=== PATIENT | male | born 1930 | race Caucasian/White ===

== ENCOUNTER → 2016-11-13 | Outpatient (CLI) | payer MEDICARE, OTHER ==
[2016-10-24 16:05] VITALS: BP 120/64
[~2016-11-13] MED LIST: ACET325T9 PO; ALBU2.5V5 NEB; CALC1CAP7 PO; CARV3.122 PO; CITA20TA5 PO; FENT1PAT19 TD; FINA5TAB4 PO; FURO40TA4 PO; GADOBUTROL 10 MMOL/10 ML VIAL IV ONE; HYDR-2672 PO; HYDR500C3 PO; LEVO100T5 PO; MULT-208 PO; MULT-245 PO; OXYC1TAB9 PO; PANT40TA5 PO; SENN8.6T99 PO; SULF1TAB24 PO; TRAM50TA PO
--- NOTE | 2016-11-13 14:26 | RAD ---
PROCEDURE MR of the bilateral hips HISTORY Bilateral weakness and pain. TECHNIQUE Large field of view used to include both hips. COMPARISON None FINDINGS There is extensive artifact at the right hip due to right hip prosthesis. Moderate to severe subcutaneous edema and swelling lateral to the left hip and proximal thigh. Mild intramuscular edema involving the left adductor, pectineus, gluteus and proximal vastus muscles. Partially visualized fluid collection within or just anterior to the distal gluteus fauzia muscle. As visualized this measures 5 centimeters diameter. The major tendon attachments within the field of view appear to be grossly intact without evidence of acute rupture. Hamstring tendinosis. Milder more generalized soft tissue edema around the visualized musculoskeletal pelvis. No significant joint effusion. No evidence of an acute fracture. No aggressive bone destruction. No left femoral head osteonecrosis. Mild marrow heterogeneity on T1 weighted images, likely due to red marrow reconversion due to patient age. There is distension of the urinary bladder. IMPRESSION 1. Generalized soft tissue edema and swelling around the pelvis, particularly around the left hip in the lateral subcutaneous tissues. Findings could represent posttraumatic muscle strains or nonspecific inflammatory or infectious etiology. 2. Partially visualized fluid collection identified just anterior to or possibly within the lower aspect of the left gluteus fauzia muscle. Etiology nonspecific, again could be posttraumatic versus inflammatory/infectious, depending on clinical history. Electronically signed by: Eugenio Norwood MD (Nov 13, 2016 14:25:36)
--- NOTE | 2016-11-13 18:18 | RAD ---
PROCEDURE MRI of the lumbar spine without and with contrast 11/13/2016 HISTORY Low back pain with bilateral leg weakness. History of previous lumbar spine surgery. TECHNIQUE Unenhanced T1 weighted, T2 weighted inversion recovery sagittal and T1 weighted and T2 weighted axial images of the lumbar spine were obtained. After the intravenous administration of 10 cc of Gadavist, enhanced T1 weighted sagittal and axial images of the lumbar spine were obtained. FINDINGS Comparison study is dated 10/22/2016. Images from the study are degraded by patient motion. [id number] S-shaped curvature of the thoracolumbar spine is seen. Degenerative signal changes are seen involving all of the discs of the lumbar spine. Degenerative signal changes are seen within the marrow surrounding these discs. The marrow signal of the visualized bony structures remains very heterogeneous. Old compression deformity of the L1 vertebral body is again noted. The conus medullaris is normal in position and signal characteristics. The thecal sac is distorted throughout the lumbar spine. 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 Mild to moderate left hydronephrosis and left hydroureter is again seen. Increased signal intensity is seen on the T2 weighted inversion recovery images involving the L1-2, L2-3, L3-4 and L5-S1 discs. Marked loss of height of these discs is seen. Decreased signal intensity seen on the T1 weighted images within the marrow surrounding these discs which is felt to most likely reflect areas of degenerative signal change; however, discitis/osteomyelitis could have similar appearance and is not excluded. What appear to be loculated subdural fluid collections are seen extending throughout the lumbar spine predominantly anterior to the thecal sac significantly deforming the thecal sac. These extend from the L2 through L5-S1 levels. They are very difficult to evaluate due to motion on these images. These appear increased somewhat at the L2 level and at the S1 level. The etiology of these fluid collections and their sterility remains unknown. The patient appears to be status post laminectomy at L3-4. The changes of degenerative disc disease are seen throughout the lumbar spine. These consist mild to moderate generalized disc bulges and degenerative changes involving the facet joints. These findings result in mild to moderate central spinal canal stenosis at L1-2 with mild to moderate right neural foraminal stenosis. Severe central spinal canal stenosis is seen at L2-3 with mild bilateral neural foraminal stenosis, moderate left greater than right neural foraminal stenosis is seen at L4-5. Moderate left greater than right neural foraminal stenosis is seen at L5-S1. IMPRESSION 1. Images from the study are degraded by patient motion. 2. There again appears to be loculated subdural fluid collections extending throughout the lumbar spine predominantly anteriorly significantly deforming the thecal sac extending from the L2 through L5-S1 levels. These appear increased somewhat at the L2 and S1 levels. The etiology of these fluid collections and there sterility remains unknown. 3. The patient is status post laminectomy at L3-4. 4. The changes of degenerative disc disease are seen throughout the lumbar spine contributing to mild to moderate central spinal canal stenosis at L1-2 and severe central spinal canal stenosis at L2-3. Multilevel neural foraminal stenosis of varying severity is seen as outlined above. Electronically signed by: Charly Navarro MD (Nov 13, 2016 18:17:07)
== END | disposition home or self-care (01) ==
LOC: MRI 12:26
PROVIDERS: ATTEND Family Medicine
DX: M54.9 Dorsalgia, unspecified (principal); M79.605 Pain in left leg; M79.604 Pain in right leg; R53.1 Weakness; Z82.49 Family history of ischemic heart disease and other diseases of the circulatory system; I10 Essential (primary) hypertension
CPT/HCPCS: 72158; 73721

== ENCOUNTER 2016-11-14 20:16 | Inpatient (IN) | payer MEDICARE, OTHER ==
[~2016-11-14] VITALS: Ht 170.2 cm; Wt 87.7 kg
[~2016-11-14 20:16] MED LIST changes: -ACET325T9 PO; -ALBU2.5V5 NEB; -CITA20TA5 PO; -FENT1PAT19 TD; -FURO40TA4 PO; -GADOBUTROL 10 MMOL/10 ML VIAL IV ONE; -MULT-208 PO; -OXYC1TAB9 PO; -SENN8.6T99 PO; -TRAM50TA PO
--- NOTE | 2016-11-14 22:14 | PHYS DOC ---
Past Medical History Past Medical History: CAD, CHF, Heart Disease, Hypertension, Hypothyroid, Other Additional Past Medical Histor: PROLAPSED VALVE, BLOOD DISORDER, Lumbar spinal stenosis and DDD Past Surgical History: Coronary Bypass Surgery, Hip Replacement, Knee Replacement, Other Additional Past Surgical Histo: R)hipR)ankleBilat cataractL)rotator,Laminectomy ,Colon resect.,Bilat.knees, Alcohol Use: None Drug Use: None Adult General Chief Complaint Chief Complaint: BACK PAIN - NO INJURY HPI HPI Patient is a 86 year old male was history of low back pain and laminectomy who presents by EMS from nursing facility for evaluation of worsening low back pain , worsening bilateral lower extremity weakness, and urinary incontinence. Patient states this has occurred over the past 2 weeks or so, gradually. He denies injury. He denies fever or chills or abdominal pain, nausea or vomiting, dysuria, hematuria, diarrhea. He had laboratory evaluation remarkable for elevated ESR at work, and he has recent MRI of L-spine and pelvis in a lethargic significant for fluid accumulations; so he was sent here for admission for neurosurgical evaluation. Review of Systems Review of Systems Constitutional: Denies fever or chills [] Eyes: Denies change in visual acuity, redness, or eye pain [] HENT: Denies nasal congestion or sore throat [] Respiratory: Denies cough or shortness of breath [] Cardiovascular: No additional information not addressed in HPI [] GI: Denies abdominal pain, nausea, vomiting, bloody stools or diarrhea [] : Denies dysuria or hematuria [] Musculoskeletal: Denies joint pain [] Integument: Denies rash or skin lesions [] Neurologic: Denies headache, focal weakness or sensory changes [] Endocrine: Denies polyuria or polydipsia [] Current Medications Current Medications Current Medications Medications (Trade) Dose Ordered Sig/Sabino Start Time Stop Time Status Last Admin Dose Admin Acetaminophen (Tylenol) 650 mg PRN Q4HRS PRN 11/14/16 22:15 11/15/16 22:14 Fentanyl Citrate (Fentanyl 2ml Vial) 50 mcg PRN Q2HR PRN 11/14/16 22:15 11/15/16 22:14 11/14/16 22:46 50 MCG Ondansetron HCl (Zofran) 4 mg PRN Q8HRS PRN 11/14/16 22:15 11/15/16 22:14 11/14/16 22:44 4 MG Allergies Allergies Allergies Coded Allergies Type Severity Reaction Last Updated Verified I S O L A T I O N *CONTACT* Allergy Unknown 11/11/16 Yes No Known Medication Allergies Allergy Unknown 11/11/16 Yes Physical Exam Physical Exam Constitutional: Well developed, well nourished, no acute distress, non-toxic appearance. [] HENT: Normocephalic, atraumatic, bilateral external ears normal, oropharynx moist, nose normal. [] Eyes: PERRLA, EOMI. [] Neck: Normal range of motion, supple. [] Cardiovascular:Heart rate regular rhythm [] Lungs & Thorax: Bilateral breath sounds clear to auscultation [] Abdomen: Bowel sounds normal, soft, no tenderness. [] Skin: Warm, dry, no erythema, no rash. [] Back: Has lumbar spinal and paraspinal tenderness without visual or palpable abnormality, no CVA tenderness. [] Extremities: No tenderness, ROM intact, bilateral 3+ lower extremity edema. [] Neurologic: Alert and oriented X 3, normal sensory function, no focal deficits noted. Able to flex and extend now at the ankle and toes, but maintains minimal range of motion at knees and hips due to weakness. Cannot raise legs off the bed [] Psychologic: Affect normal, judgement normal, mood normal. [] Current Patient Data Vital Signs Vital Signs Date Time Temp Pulse Resp B/P Pulse Ox O2 Delivery O2 Flow Rate FiO2 11/14/16 21:32 97.7 81 20 121/59 95 Room Air 97.7 Course & Med Decision Making Course & Med Decision Making Pertinent Labs and Imaging studies reviewed. (See chart for details) Reviewed recent outpatient lab that is remarkable for elevation ESR. He also had outpatient MR of his L-spine and pelvis that is remarkable for fluid in the lumbar spine area as well as soft tissues of the pelvis. Concern for soft tissue swelling likely related to dependent edema as he has markedly bilateral lower extremity edema. Given his progression in muscular skeletal dysfunction as well as recent urinary incontinence, Dr. Moreno would like to admit him to have neurosurgical evaluation. Neurosurgery consult placed. Beverley Disclaimer Beverley Disclaimer This electronic medical record was generated, in whole or in part, using a voice recognition dictation system. Departure Departure Impression: Primary Impression: Lumbar back pain Disposition: ADMITTED INPATIENT Condition: STABLE Referrals: Savana MORENO MD (PCP) Problem Qualifiers Primary Impression: Lumbar back pain Chronicity: acute Back pain laterality: midline Sciatica presence: without sciatica Qualified Code: M54.5 - Low back pain Aj KEATING MD Nov 14, 2016 22:14
[2016-11-14] MEDS ORDERED: ACETAMINOPHEN 325 MG TABLET. PO PRN (22:15)
[2016-11-14] MEDS ORDERED: FENTANYL PF 100 MCG/2 ML VIAL. IV PRN (22:15)
[2016-11-14] MEDS ORDERED: ONDANSETRON PF 4 MG/2 ML VIAL. IV PRN (22:15)
[2016-11-14 23:10] VITALS: BP 117/62
[2016-11-14 23:13] LABS: CALCIUM 8.5 mg/dL (8.5-10.1); CREATININE 0.9 mg/dL (0.7-1.3); GFR 79.6; POTASSIUM 4.4 mmol/L (3.5-5.1)
--- NOTE | 2016-11-15 00:12 | ACF ---
Admission Forms Criteria BACK PAIN Clinical Indications for Admission to Inpatient Care (Place 'X' for any and all applicable criteria): Admission is indicated for ANY ONE of the following (1)(2)(3)(4)(5)(6): [ X]I. Inpatient admission required rather than observation care (Also use Back Pain: Observation Care as appropriate) because of ANY ONE of the following [ X]a) Severe pain requiring acute inpatient management [ ]b) Immediate inpatient surgery [ ]c) Other condition, treatment or monitoring requiring inpatient admission [ ]II. Spine fracture with significant damage or threat of damage to vertebral column or spinal cord [ ]III. Progressive or severe neurologic deficit [ ]IV. Suspected spinal infection (e.g., epidural abscess, vertebral osteomyelitis)(10) [ ]V. Suspected cause requires inpatient treatment (eg, aortic dissection) [ ]. Cauda equina syndrome as indicated by ANY ONE of the following (9): [ ]a) Bowel dysfunction [ ]b) Bladder dysfunction [ ]c) Saddle anesthesia [ ]d) Neurologic abnormality suggesting cauda equina impingement Extended stay beyond goal length of stay may be needed for (3)(25): [ ]a) Spinal cord compression from stenosis, disk, or tumor (8)(9) [ ]b) Traumatic or pathologic vertebral fracture (33) [ ]c) Vertebral infection(10) [ ]d) Severe pain that is difficult to control [ ]e) Older patients(65 years or older) The original [facility] content created by [employer] has been revised. The portions of the content which have been revised are identified through the use of italic text or in bold, and [facility] has neither reviewed nor approved the modified material. All other unmodified content is copyright [facility]. Please see references footnoted in the original [facility] edition 2016 Admission Criteria Met?: Yes POP MATHEWS Nov 15, 2016 00:12
[2016-11-15] MEDS ORDERED: FURO40TA4 PO (00:57)
[2016-11-15] MEDS ORDERED: MULT-208 PO (00:58)
[2016-11-15] MEDS ORDERED: CITA20TA5 PO (01:01)
[2016-11-15] MEDS ORDERED: FENT1PAT19 TD (01:01)
[2016-11-15] MEDS ORDERED: ACET325T9 PO (01:03)
[2016-11-15] MEDS ORDERED: ALBU2.5V5 NEB (01:04)
[2016-11-15] MEDS ORDERED: OXYC1TAB9 PO (01:05)
[2016-11-15] MEDS ORDERED: SENN8.6T99 PO (01:06)
[2016-11-15] MEDS ORDERED: TRAM50TA PO (01:07)
[2016-11-15 03:20] VITALS: BP 111/53
[2016-11-15 05:17] LABS: BASO % 0 % (0-3); EOS % 1 % (0-3); HEMOGLOBIN 7.4 g/dL (13.0-17.5); LYMPH # 0.6 x10^3/uL (1.0-4.8); LYMPH % 11 % (24-48); MEAN CORPUSCULAR HEMOGLOBIN 41 pg (25-35); MEAN CORPUSCULAR HGB CONC 32 g/dL (31-37); MEAN CORPUSCULAR VOLUME 126 fL (79-100); MONO % 11 % (0-9); NEUT % 77 % (31-73); PLATELET COUNT 502 x10^3/uL (140-400); RED BLOOD COUNT 1.83 x10^6/uL (4.30-5.70); RED CELL DISTRIBUTION WIDTH 25.2 % (11.5-14.5); WHITE BLOOD COUNT 5.5 x10^3/uL (4.0-11.0)
[2016-11-15 06:04] LABS: CALCIUM 8.1 mg/dL (8.5-10.1); GFR 70.5; POTASSIUM 3.8 mmol/L (3.5-5.1)
[2016-11-15 07:00] VITALS: BP 108/59
[2016-11-15] MEDS ORDERED: FENTANYL 75MCG/HR PATCH. TD SCH (07:00)
[2016-11-15] MEDS ORDERED: ACETAMINOPHEN 325 MG TABLET. PO PRN (07:00)
[2016-11-15] MEDS ORDERED: ALBUTEROL SULFATE 2.5 MG/3 ML NEBU. NEB PRN (07:00)
[2016-11-15] MEDS ORDERED: SMZ/TMP 800/160MG TABLET. PO SCH (09:00)
--- NOTE | 2016-11-15 10:45 | PDOC ---
SUBJECTIVE Subjective Pt seen/examined. Full consult to follow. 86M with increased low back pain with functional difficulty with lower extremities over last couple weeks. Pt oriented but somewhat difficult historian. Reports stabbing low back pain and pain localized to the right hip that worsens with movement. Reports unable to get to bathroom from these issues with resultant incontinence. He reports that he senses the need to micturate and micturation. He denies paresthesias in the lower extremities or the perineal region. He denies pain in the legs other than right hip pain. Of note, he has a history of prior lumbar decompression many years ago by another surgeon. On exam, he provides full resistance in major muscle groups but has limitation in range of motion with right hip flexion. Reports intact sensation to light touch. DTR hyporeflexive. Significant pitting edema in lower extremities. Lumbar MRI from 11/13/16 with degenerative changes and mild increased loculated fluid prominence anterior subdural region compared to 2015 imaging. 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 Stenosis again noted L2-3. ESR noted to be >100. Concern for inflammatory process. ID consult. Acquire MR imaging of cervical and thoracic spine to assess for other such findings in the spinal axis. Lumbar CT myelogram to further assess fluid collections in lumbar region with relation to intrathecal space. Lumbar puncture to further evaluate infectious/inflammatory etiologies. Follow. OBJECTIVE Vital Signs Vital Signs Date Time Temp Pulse Resp B/P Pulse Ox O2 Delivery O2 Flow Rate FiO2 11/15/16 07:00 97.5 76 20 108/59 95 Room Air 97.5 11/15/16 03:20 97.6 77 16 111/53 91 Room Air 97.6 11/14/16 23:20 16 94 Room Air 11/14/16 23:10 97.7 75 16 117/62 94 Room Air 97.7 11/14/16 22:30 73 16 130/58 95 Room Air 11/14/16 21:32 97.7 81 20 121/59 95 Room Air 97.7 COMMENT Lab Laboratory Tests Test 11/14/16 22:43 11/15/16 04:19 Sodium Level 135mmol/L (136-145) 134mmol/L (136-145) Potassium Level 4.4mmol/L (3.5-5.1) 3.8mmol/L (3.5-5.1) Chloride Level 98mmol/L (98-107) 99mmol/L (98-107) Carbon Dioxide Level 28mmol/L (21-32) 31mmol/L (21-32) Anion Gap 9 (6-14) 4 (6-14) Blood Urea Nitrogen 20mg/dL (8-26) 17mg/dL (8-26) Creatinine 0.9mg/dL (0.7-1.3) 1.0mg/dL (0.7-1.3) Estimated GFR (Cockcroft-Gault) 79.6 70.5 Glucose Level 90mg/dL (70-99) 82mg/dL (70-99) Calcium Level 8.5mg/dL (8.5-10.1) 8.1mg/dL (8.5-10.1) White Blood Count 5.5x10^3/uL (4.0-11.0) Red Blood Count 1.83x10^6/uL (4.30-5.70) Hemoglobin 7.4g/dL (13.0-17.5) Hematocrit 23.0% (39.0-53.0) Mean Corpuscular Volume 126fL (79-100) Mean Corpuscular Hemoglobin 41pg (25-35) Mean Corpuscular Hemoglobin Concent 32g/dL (31-37) Red Cell Distribution Width 25.2% (11.5-14.5) Platelet Count 502x10^3/uL (140-400) Neutrophils (%) (Auto) 77% (31-73) Lymphocytes (%) (Auto) 11% (24-48) Monocytes (%) (Auto) 11% (0-9) Eosinophils (%) (Auto) 1% (0-3) Basophils (%) (Auto) 0% (0-3) Neutrophils # (Auto) 4.3x10^3uL (1.8-7.7) Lymphocytes # (Auto) 0.6x10^3/uL (1.0-4.8) Monocytes # (Auto) 0.6x10^3/uL (0.0-1.1) Eosinophils # (Auto) 0.0x10^3/uL (0.0-0.7) Basophils # (Auto) 0.0x10^3/uL (0.0-0.2) ARIANNA WILKERSON MD Nov 15, 2016 10:45
[2016-11-15 11:00] VITALS: BP 115/58
[2016-11-15] MEDS: SENNOSIDES 8.6 MG TABLET PO SCH ×2 (11:05→20:56)
[2016-11-15] MEDS: LEVOTHYROXINE 100 MCG TABLET PO SCH (11:05)
[2016-11-15] MEDS: MULTIVITAMIN with MINERAL TABLET. PO SCH (11:05)
[2016-11-15] MEDS: CITALOPRAM 20 MG TABLET. PO SCH (11:05)
[2016-11-15] MEDS: PANTOPRAZOLE 40 MG TABLET. PO SCH (11:06)
[2016-11-15] MEDS: FUROSEMIDE 40 MG TABLET PO SCH (11:06)
[2016-11-15] MEDS: CALCIUM CARB/VIT D3 500/200 TABLET PO SCH (11:06)
[2016-11-15] MEDS: FINASTERIDE 5 MG TABLET PO SCH (11:06)
[2016-11-15] MEDS: CARVEDILOL 3.125 MG TABLET PO SCH ×2 (11:06→16:15)
--- NOTE | 2016-11-15 12:37 | PDOC1 ---
History and Physical Date of Admission Date of Admission DATE: 11/14/16 TIME: 18:23 Identification/Chief Complaint Chief Complaint worsening back pain since lumbar lami, abnormal MRI of L-spine with concern for spinal fluid leak, elevated sed rate with concern for infection, suspected cauda equina syndrome with urinary incontinence Source Source: Chart review, Patient History of Present Illness History of Present Illness He has been at [facility] post op but not recovering as expected with back and hip pain and recent lab and imaging studies abnormal so admitted for further eval and treatment that cannot be provided in a SNU setting, he is on oral antibiotics for a recent bladder infection, he has been afebrile Past Medical History Cardiovascular: CAD Pulmonary: No pertinent hx GI: Constipation, GI bleed, Peptic Ulcer disease Heme/Onc: Anemia NOS, Other Hepatobiliary: No pertinent hx Psych: No pertinent hx Musculoskeletal: Osteoarthritis Rheumatologic: No pertinent hx Infectious disease: No pertinent hx Renal/: No pertinent hx Endocrine: No pertinent hx Past Surgical History Past Surgical History: Total knee replacement, Colon Resection, Other (lumbar lami) Family History Family History: Osteo Arthiritis Social History ALCOHOL: occassional Drugs: None Current Problem List Problem List Problems Medical Problems: (1) Lumbar back pain Status: Acute Problems: Current Medications Current Medications Current Medications Ondansetron HCl (Zofran) 4 mg PRN Q8HRS PRN IV NAUSEA/VOMITING Last administered on 11/14/16 22:44; Start 11/14/16 at 22:15; Stop 11/15/16 at 22:14 Fentanyl Citrate (Fentanyl 2ml Vial) 50 mcg PRN Q2HR PRN IV SEVERE PAIN Last administered on 11/14/16 22:46; Start 11/14/16 at 22:15; Stop 11/15/16 at 22:14 Acetaminophen (Tylenol) 650 mg PRN Q4HRS PRN PO FEVER; Start 11/14/16 at 22:15; Stop 11/15/16 at 22:14 Acetaminophen (Tylenol) 650 mg PRN Q6HRS PRN PO FEVER; Start 11/15/16 at 07:00 Albuterol Sulfate (Ventolin Neb Soln) 1 mg PRN Q6HRS PRN NEB SHORTNESS OF BREATH; Start 11/15/16 at 07:00 Carvedilol (Coreg) 3.125 mg BIDWMEALS PO Last administered on 11/15/16 11:06; Start 11/15/16 at 08:00 Citalopram Hydrobromide (Celexa) 20 mg DAILY PO Last administered on 11/15/16 11:05; Start 11/15/16 at 09:00 Fentanyl (Duragesic 75mcg/ Hr Patch) 1 patch Q72H TD Last administered on 11:04; Start 11/15/16 at 07:00 Finasteride (Proscar) 5 mg DAILY PO Last administered on 11/15/16 11:06; Start 11/15/16 at 09:00 Furosemide (Lasix) 40 mg DAILY PO Last administered on 11/15/16 11:06; Start at 09:00 Acetaminophen/ Hydrocodone Bitart (Lortab 10/325) 1 tab PRN Q6HRS PRN PO SEVERE PAIN; Start 11/15/16 at 07:00 Hydroxyurea (Hydrea) 1,000 mg SuMoTuWeThSa PO ; Start 11/15/16 at 21:00 Levothyroxine Sodium (Synthroid) 100 mcg DAILYAC PO Last administered on 11:05; Start 11/15/16 at 07:30 Pantoprazole Sodium (Protonix) 40 mg DAILYAC PO Last administered on 11/15/16 11:06; Start 11/15/16 at 07:30 Sennosides (Senna) 8.6 mg BID PO Last administered on 11/15/16 11:05; Start 11/15/16 at 09:00 Trimethoprim/ Sulfamethoxazole (Bactrim Ds) 1 tab BID PO Last administered on 11:30; Start 11/15/16 at 09:00 Calcium/Vitamin D (Oscal D 500mg/ 200uts) 1 tab DAILY PO Last administered on 11:06; Start 11/15/16 at 09:00 Multivitamins/ Calcium (Thera M Plus) 1 tab DAILY PO Last administered on 11:05; Start 11/15/16 at 09:00 Hydroxyurea (Hydrea) 1,500 mg QFRIDAY PO ; Start 11/21/16 at 21:00 Active Scripts Active Bactrim Ds Tablet (Sulfamethoxazole/Trimethoprim) 1 Each Tablet 1 Tab PO BID Reported Senokot (Sennosides) 8.6 Mg Tablet 8.6 Mg PO BID Albuterol Sulfate Neb Soln (Albuterol Sulfate) 2.5 Mg/3 Ml Vial.neb 1 Vial NEB Q6HRS PRN Tylenol (Acetaminophen) 325 Mg Tablet 2 Tab PO Q6HRS PRN FENTANYL 75mcg/hr (Fentanyl) 1 Each Patch.td72 1 Patch TD Q72H Citalopram Hbr (Citalopram Hydrobromide) 20 Mg Tablet 1 Tab PO DAILY Furosemide 40 Mg Tablet 1 Tab PO DAILY Calcium 600 + Vit D 400 Softgl (Calcium Carbonate/Vitamin D3) 1 Each Capsule 600 Each PO DAILY Multi Vitamin Daily (Multivitamin) 1 Each Tablet 1 Each PO Finasteride 5 Mg Tablet 5 Mg PO DAILY Hydrocodone-Apap 10-325 (Hydrocodone Bit/Acetaminophen) 1 Each Tablet 1 Tab PO PRN Q6HRS PRN Hydroxyurea 500 Mg Capsule 1,000 Mg PO HS Pantoprazole Sodium 40 Mg Tablet.dr 40 Mg PO DAILY Carvedilol 3.125 Mg Tablet 3.125 Mg PO BIDWMEALS Levothyroxine Sodium 100 Mcg Tablet 100 Mcg PO DAILYAC Allergies Allergies: Coded Allergies: I S O L A T I O N *CONTACT* (Verified Allergy, Unknown, 11/11/16) mrsa No Known Medication Allergies (Verified Allergy, Unknown, 11/11/16) ROS General: YES: Fatigue, Malaise PSYCHOLOGICAL ROS: No: Anxiety, Behavioral Disorder, Concentration difficultie , Decreased libido, Depression, Disorientation, Hallucinations, Hostility, Irritablity, Memory difficulties, Mood Swings, Obsessive thoughts, Physical abuse, Sexual abuse, Sleep disturbances, Suicidal ideation Eyes: Yes Uses glasses HEENT: No: Epistaxis, Heacaches, Hearing change, Nasal congestion, Nasal discharge, Oral lesions, Sinus pain, Sneezing, Snoring, Sore Throat, Tinnitus, Vertigo, Visual Changes, Vocal changes ALLERGY AND IMMUNOLOGY: No: Hives, Insect Bite Sensitivity, Itchy/Watery Eyes, Nasal Congestion, Post Nasal Drip, Seasonal Allergies Hematological and Lymphatic: No: Bleeding Problems, Blood Clots, Brusing, Night Sweats, Pallor, Swollen Lymph Nodes Respiratory: No: Cough, Hemoptysis, Orthopnea, Pleuritic Pain, SOB with excertion, Shortness of breath, Sputum Changes, Stridor, Tachypnea, Wheezing Cardiovascular: No Chest Pain, No Edema, No Lt Headedness, No Orthopnea, No Palpitations, No Paroxysmal Noc. Dyspnea Gastrointestinal: Yes Constipation Genitourinary: YES Incontinence Musculoskeletal: Yes Gait Disturbance, Yes Joint Pain, Yes Joint Stiffness, Yes Muscular Weakness Skin: Yes Dry Skin, Yes Eczema, Yes Rash Physical Exam General: Alert, Cooperative, mild distress HEENT: Atraumatic, Other (wearing glasses, several actinic skin lesions) Lungs: Clear to auscultation Heart: RRR Abdomen: Soft, No hepatosplenomegaly Male Genitals Exam: normal genitalia Extremities: Other (2-3+ LE edema bilaterally, pitting) Skin: Other (actinic lesions) Psych/Mental Status: Mental status NL Vitals Vitals Vital Signs Date Time Temp Pulse Resp B/P Pulse Ox O2 Delivery O2 Flow Rate FiO2 11/15/16 11:06 76 108/59 11/15/16 11:00 96.3 20 94 Room Air 96.3 Labs Labs Laboratory Tests Test 11/14/16 22:43 11/15/16 04:19 Sodium Level 135mmol/L (136-145) 134mmol/L (136-145) Potassium Level 4.4mmol/L (3.5-5.1) 3.8mmol/L (3.5-5.1) Chloride Level 98mmol/L (98-107) 99mmol/L (98-107) Carbon Dioxide Level 28mmol/L (21-32) 31mmol/L (21-32) Anion Gap 9 (6-14) 4 (6-14) Blood Urea Nitrogen 20mg/dL (8-26) 17mg/dL (8-26) Creatinine 0.9mg/dL (0.7-1.3) 1.0mg/dL (0.7-1.3) Estimated GFR (Cockcroft-Gault) 79.6 70.5 Glucose Level 90mg/dL (70-99) 82mg/dL (70-99) Calcium Level 8.5mg/dL (8.5-10.1) 8.1mg/dL (8.5-10.1) White Blood Count 5.5x10^3/uL (4.0-11.0) Red Blood Count 1.83x10^6/uL (4.30-5.70) Hemoglobin 7.4g/dL (13.0-17.5) Hematocrit 23.0% (39.0-53.0) Mean Corpuscular Volume 126fL (79-100) Mean Corpuscular Hemoglobin 41pg (25-35) Mean Corpuscular Hemoglobin Concent 32g/dL (31-37) Red Cell Distribution Width 25.2% (11.5-14.5) Platelet Count 502x10^3/uL (140-400) Neutrophils (%) (Auto) 77% (31-73) Lymphocytes (%) (Auto) 11% (24-48) Monocytes (%) (Auto) 11% (0-9) Eosinophils (%) (Auto) 1% (0-3) Basophils (%) (Auto) 0% (0-3) Neutrophils # (Auto) 4.3x10^3uL (1.8-7.7) Lymphocytes # (Auto) 0.6x10^3/uL (1.0-4.8) Monocytes # (Auto) 0.6x10^3/uL (0.0-1.1) Eosinophils # (Auto) 0.0x10^3/uL (0.0-0.7) Basophils # (Auto) 0.0x10^3/uL (0.0-0.2) C-Reactive Protein, Quantitative 69.6mg/L (0-3.3) Laboratory Tests Test 11/14/16 22:43 11/15/16 04:19 Sodium Level 135mmol/L (136-145) 134mmol/L (136-145) Potassium Level 4.4mmol/L (3.5-5.1) 3.8mmol/L (3.5-5.1) Chloride Level 98mmol/L (98-107) 99mmol/L (98-107) Carbon Dioxide Level 28mmol/L (21-32) 31mmol/L (21-32) Anion Gap 9 (6-14) 4 (6-14) Blood Urea Nitrogen 20mg/dL (8-26) 17mg/dL (8-26) Creatinine 0.9mg/dL (0.7-1.3) 1.0mg/dL (0.7-1.3) Estimated GFR (Cockcroft-Gault) 79.6 70.5 Glucose Level 90mg/dL (70-99) 82mg/dL (70-99) Calcium Level 8.5mg/dL (8.5-10.1) 8.1mg/dL (8.5-10.1) White Blood Count 5.5x10^3/uL (4.0-11.0) Red Blood Count 1.83x10^6/uL (4.30-5.70) Hemoglobin 7.4g/dL (13.0-17.5) Hematocrit 23.0% (39.0-53.0) Mean Corpuscular Volume 126fL (79-100) Mean Corpuscular Hemoglobin 41pg (25-35) Mean Corpuscular Hemoglobin Concent 32g/dL (31-37) Red Cell Distribution Width 25.2% (11.5-14.5) Platelet Count 502x10^3/uL (140-400) Neutrophils (%) (Auto) 77% (31-73) Lymphocytes (%) (Auto) 11% (24-48) Monocytes (%) (Auto) 11% (0-9) Eosinophils (%) (Auto) 1% (0-3) Basophils (%) (Auto) 0% (0-3) Neutrophils # (Auto) 4.3x10^3uL (1.8-7.7) Lymphocytes # (Auto) 0.6x10^3/uL (1.0-4.8) Monocytes # (Auto) 0.6x10^3/uL (0.0-1.1) Eosinophils # (Auto) 0.0x10^3/uL (0.0-0.7) Basophils # (Auto) 0.0x10^3/uL (0.0-0.2) C-Reactive Protein, Quantitative 69.6mg/L (0-3.3) VTE Prophylaxis Ordered VTE Prophylaxis Devices: Yes VTE Pharmacological Prophylaxi: Yes Assessment/Plan Assessment/Plan lumbar back pain, suspicious for cauda equina syndrome with gait weakness and urinary incontinence and elevated sed rate, abnormal fluid collection noted on recent MRI, he also has soft tissue edema around hip. Admitted for Neurosurgery and ID consults and further eval and treatment Savana MORENO MD Nov 15, 2016 12:37
--- NOTE | 2016-11-15 14:32 | PDOC ---
Infectious Disease Note Vital Sign Vital Signs Vital Signs Date Time Temp Pulse Resp B/P Pulse Ox O2 Delivery O2 Flow Rate FiO2 11/15/16 11:06 76 108/59 11/15/16 11:00 96.3 20 94 Room Air 96.3 Labs Lab Laboratory Tests Test 11/14/16 22:43 11/15/16 04:19 Sodium Level 135mmol/L (136-145) 134mmol/L (136-145) Potassium Level 4.4mmol/L (3.5-5.1) 3.8mmol/L (3.5-5.1) Chloride Level 98mmol/L (98-107) 99mmol/L (98-107) Carbon Dioxide Level 28mmol/L (21-32) 31mmol/L (21-32) Anion Gap 9 (6-14) 4 (6-14) Blood Urea Nitrogen 20mg/dL (8-26) 17mg/dL (8-26) Creatinine 0.9mg/dL (0.7-1.3) 1.0mg/dL (0.7-1.3) Estimated GFR (Cockcroft-Gault) 79.6 70.5 Glucose Level 90mg/dL (70-99) 82mg/dL (70-99) Calcium Level 8.5mg/dL (8.5-10.1) 8.1mg/dL (8.5-10.1) White Blood Count 5.5x10^3/uL (4.0-11.0) Red Blood Count 1.83x10^6/uL (4.30-5.70) Hemoglobin 7.4g/dL (13.0-17.5) Hematocrit 23.0% (39.0-53.0) Mean Corpuscular Volume 126fL (79-100) Mean Corpuscular Hemoglobin 41pg (25-35) Mean Corpuscular Hemoglobin Concent 32g/dL (31-37) Red Cell Distribution Width 25.2% (11.5-14.5) Platelet Count 502x10^3/uL (140-400) Neutrophils (%) (Auto) 77% (31-73) Lymphocytes (%) (Auto) 11% (24-48) Monocytes (%) (Auto) 11% (0-9) Eosinophils (%) (Auto) 1% (0-3) Basophils (%) (Auto) 0% (0-3) Neutrophils # (Auto) 4.3x10^3uL (1.8-7.7) Lymphocytes # (Auto) 0.6x10^3/uL (1.0-4.8) Monocytes # (Auto) 0.6x10^3/uL (0.0-1.1) Eosinophils # (Auto) 0.0x10^3/uL (0.0-0.7) Basophils # (Auto) 0.0x10^3/uL (0.0-0.2) C-Reactive Protein, Quantitative 69.6mg/L (0-3.3) Objective Assessment Loculated subdural fluid collections of lumbar Fluid collection left hip Anemia Recent fall MRSA in urine, 11/06 Spinal stenosis s/p laminectomy L3-4 CAD Plan Plan of Care d/c Bactrim Await neurosurgeon input May need IR to aspirate and culture Thank you [phone] Attending Co-Sign The patient was seen and interviewed as well as examined at the bedside. The chart was reviewed. The case was discussed. Agree with the plan of care. PRESTON NAVAS APRN Nov 15, 2016 14:32 ALFONSO PROCTOR MD Nov 15, 2016 14:40
[2016-11-15 15:00] VITALS: BP 113/52
[2016-11-15] MEDS: HYDROCODONE/APAP 10/325 TABLET. PO PRN (16:14)
[2016-11-15 16:15] LABS: ANISOCYTOSIS MOD; PLT ESTIMATE INCREASED (ADEQUATE); POIKILOCYTOSIS SLIGHT; POLYCHROMASIA PRESENT
[2016-11-15] MEDS: ENOXAPARIN 40 MG/0.4 ML DISP.SYRIN. SQ SCH (16:15)
[2016-11-15 16:16] LABS: OVALOCYTES FEW
[2016-11-15 19:13] LABS: INR 1.3 (0.8-1.1); PROTHROMBIN TIME PATIENT 15.8 SEC (11.7-14.0)
[2016-11-15 19:40] VITALS: BP 111/46
[2016-11-15] MEDS: HYDROXYUREA 500 MG CAPSULE PO SCH (21:00)
[2016-11-15 22:40] VITALS: BP 106/47
[2016-11-16] VITALS (8 sets, daily range): BP systolic 97–143; BP diastolic 39–70
--- NOTE | 2016-11-16 04:29 | CONS ---
DATE OF CONSULTATION: 11/15/2016 REQUESTING PHYSICIAN: Dr. Kuo. REASON FOR CONSULTATION: Elevated sed rate post lumbar laminectomy. HISTORY OF PRESENT ILLNESS: This patient is an 86-year-old male with history of lumbar stenosis status post laminectomy at L3-L4 and L4-5. He was hospitalized last month after a fall with a right rib fracture. At that time, an MRI revealed a subdural fluid collection extending L2, most notable L3-L4-5 with effacement of subarachnoid space. He was residing at [facility] when he developed a worsening back and hip pain associated with urinary incontinence and lower extremity weakness. A repeat MRI revealed a somewhat increase fluid collections at L2 and S1 levels. Etiologies of these fluid collections and their severity remain unknown. His white blood cell count is normal with an elevated CRP of 69.6. He denies fevers, chills, or sweats. He has not been able to walk for weeks. He recently was found to have MRSA in the urine and is currently taking Bactrim. PAST MEDICAL HISTORY: Lumbar stenosis status post laminectomy at L3-L4, coronary artery disease, myocardial infarction, congestive heart failure, hypertension, gastroesophageal reflux disease, degenerative disk disease, hypothyroidism, peptic ulcer disease, osteoarthritis. Enterococcus faecalis, penicillin sensitive UTI. PAST SURGICAL HISTORY: Laminectomy, total knee replacement, colon resection, right femur repair. Left rotator cuff repair, right ankle fusion, cataract surgery, cardiac catheterization, total joint replacement of both knees. SOCIAL HISTORY: [facility]. History of alcohol use. ALLERGIES: No known drug allergies. MEDICATIONS: Bactrim. Other medications are available and have been reviewed on JAN. REVIEW OF SYSTEMS: Denies headache, nasal/sinus congestion or sore throat. Denies difficulty swallowing. Denies chest pain or heart palpitations. Denies cough, shortness of air or wheezing. Denies nausea, vomiting and diarrhea. Denies rash. He is needing assistance with ADLs. PHYSICAL EXAMINATION: GENERAL: male, lying in bed in no apparent distress. VITAL SIGNS: Afebrile, temperature 96.3, blood pressure 108/59, heart rate 76, respiratory rate 20, pulse oximetry is 94% on room air. Weight is 193.5 pounds. HEENT: Pupils are equally round. Normal conjunctivae. Oral mucosa is pink and moist. NECK: Supple. LUNGS: Clear to auscultation. HEART: Normal S1 and S2. ABDOMEN: Nondistended, bowel sounds are present. Soft, nontender. EXTREMITIES: Bilateral lower extremity pitting edema. No cyanosis. SKIN: Without rash. Right heel pressure wound without signs of infection. NEUROLOGIC: Alert and orientated. He is hard of hearing. Poor historian. LABORATORY DATA: WBC 5.5, hemoglobin 7.4, platelet count 502,000. Sed rate 119. Sodium 134, potassium 3.8, creatinine 1.0, BUN 17, glucose 82. CRP 69.6. Lumbar spine MRI per HPI, lower extremity MRI reveals generalized soft tissue edema and swelling around the pelvis, particularly around the left hip and the lateral subcutaneous tissues; partially visualized fluid collection identified just anterior to or possibly within the lower aspect of the left gluteus fauzia muscle. IMPRESSION: 1. Loculated subdural fluid collections of lumbar. 2. Fluid collection, left hip. 3. Anemia. 4. Recent fall. 5. MRSA in urine found 11/06. 6. Spinal stenosis status post laminectomy. 7. Coronary artery disease. PLAN: I will discontinue the Bactrim. Await neurosurgery evaluation. May need aspiration by Interventional Radiology with culture. Thank you, Dr. Kuo, for asking us to participate in this patient's care. Should you have further questions or concerns, please call. ALFONSO PROCTOR MD DR: LUDWIG/kit JOB#: [id number] / [id number]
[2016-11-16 05:33] LABS: BASO # 0.1 x10^3/uL (0.0-0.2); BASO % 1 % (0-3); EOS % 0 % (0-3); HEMATOCRIT 24.5 % (39.0-53.0); HEMOGLOBIN 7.5 g/dL (13.0-17.5); LYMPH # 0.7 x10^3/uL (1.0-4.8); LYMPH % 13 % (24-48); MEAN CORPUSCULAR HEMOGLOBIN 41 pg (25-35); MEAN CORPUSCULAR HGB CONC 31 g/dL (31-37); MEAN CORPUSCULAR VOLUME 133 fL (79-100); MONO % 9 % (0-9); NEUT % 77 % (31-73); PLATELET COUNT 523 x10^3/uL (140-400); RED BLOOD COUNT 1.84 x10^6/uL (4.30-5.70); RED CELL DISTRIBUTION WIDTH 25.2 % (11.5-14.5); WHITE BLOOD COUNT 5.5 x10^3/uL (4.0-11.0)
[2016-11-16] MEDS: LEVOTHYROXINE 100 MCG TABLET PO SCH (07:30)
[2016-11-16] MEDS: PANTOPRAZOLE 40 MG TABLET. PO SCH (07:30)
[2016-11-16] MEDS: CARVEDILOL 3.125 MG TABLET PO SCH ×2 (08:00→17:00)
[2016-11-16] MEDS: CALCIUM CARB/VIT D3 500/200 TABLET PO SCH (09:00)
[2016-11-16] MEDS: SENNOSIDES 8.6 MG TABLET PO SCH ×2 (09:00→22:24)
[2016-11-16] MEDS: MULTIVITAMIN with MINERAL TABLET. PO SCH (09:00)
[2016-11-16] MEDS: FINASTERIDE 5 MG TABLET PO SCH (09:00)
[2016-11-16] MEDS: CITALOPRAM 20 MG TABLET. PO SCH (09:00)
[2016-11-16] MEDS: FUROSEMIDE 40 MG TABLET PO SCH (09:00)
--- NOTE | 2016-11-16 09:41 | PDOC ---
Infectious Disease Note Subjective Subjective Periods of confusion No fever Vital Sign Vital Signs Vital Signs Date Time Temp Pulse Resp B/P Pulse Ox O2 Delivery O2 Flow Rate FiO2 11/16/16 07:00 97.5 94 18 143/70 98 Room Air 97.5 11/16/16 03:11 2.0 Physical Exam PHYSICAL EXAM GENERAL: Propped up in bed, NAD LUNGS: Clear to auscultation. HEART: Normal S1 and S2. ABDOMEN: Nondistended, bowel sounds are present. Soft, nontender. EXTREMITIES: Bilateral lower extremity pitting edema. No cyanosis. SKIN: Without rash. Right heel pressure wound without signs of infection. NEUROLOGIC: Alert, confused, coop Labs Lab Laboratory Tests Test 11/15/16 18:30 11/16/16 05:00 Prothrombin Time 15.8SEC (11.7-14.0) Prothromb Time International Ratio 1.3 (0.8-1.1) Activated Partial Thromboplast Time 61SEC (24-38) White Blood Count 5.5x10^3/uL (4.0-11.0) Red Blood Count 1.84x10^6/uL (4.30-5.70) Hemoglobin 7.5g/dL (13.0-17.5) Hematocrit 24.5% (39.0-53.0) Mean Corpuscular Volume 133fL (79-100) Mean Corpuscular Hemoglobin 41pg (25-35) Mean Corpuscular Hemoglobin Concent 31g/dL (31-37) Red Cell Distribution Width 25.2% (11.5-14.5) Platelet Count 523x10^3/uL (140-400) Neutrophils (%) (Auto) 77% (31-73) Lymphocytes (%) (Auto) 13% (24-48) Monocytes (%) (Auto) 9% (0-9) Eosinophils (%) (Auto) 0% (0-3) Basophils (%) (Auto) 1% (0-3) Neutrophils # (Auto) 4.2x10^3uL (1.8-7.7) Lymphocytes # (Auto) 0.7x10^3/uL (1.0-4.8) Monocytes # (Auto) 0.5x10^3/uL (0.0-1.1) Eosinophils # (Auto) 0.0x10^3/uL (0.0-0.7) Basophils # (Auto) 0.1x10^3/uL (0.0-0.2) Objective Assessment Loculated subdural fluid collections of lumbar Fluid collection left hip Anemia Acute encephalopathy Recent fall MRSA in urine, 11/06 Spinal stenosis s/p laminectomy L3-4 CAD Plan Plan of Care Await LP & cultures BC pending Attending Co-Sign The patient was seen and interviewed as well as examined at the bedside. The chart was reviewed. The case was discussed. Agree with the plan of care. PRESTON NAVAS APRN Nov 16, 2016 09:41 ALFONSO PROCTOR MD Nov 16, 2016 12:22
[2016-11-16] MEDS: ALBUTEROL SULFATE 2.5 MG/3 ML NEBU. NEB SCH ×3 (12:00→18:21)
[2016-11-16] MEDS: IV DEXTROSE 5%-LACT RINGERS 1,000 ML IV SCH (13:49)
[2016-11-16] MEDS: ENOXAPARIN 40 MG/0.4 ML DISP.SYRIN. SQ SCH (13:51)
--- NOTE | 2016-11-16 14:15 | PDOC ---
SUBJECTIVE Subjective Denies acute changes to legs or back. Reports some soa. CXR and breathing tx pending right now. Confusion reported overnight. Some difficulty with swallow reported, as well. Sensorium appears stable compared to yesterday at this time. ROS: reports back pain better controlled, reports some right hip pain, denies paresthesias, denies chest pain, reports some soa - w/u presently underway per primary team, orders for swallow eval noted OBJECTIVE Vital Signs Vital Signs Date Time Temp Pulse Resp B/P Pulse Ox O2 Delivery O2 Flow Rate FiO2 11/16/16 11:00 97.7 97 18 129/70 98 Nasal Cannula 2.0 97.7 11/16/16 08:00 Room Air 11/16/16 07:00 97.5 94 18 143/70 98 Room Air 97.5 11/16/16 03:11 98.1 69 18 97/39 92 Nasal Cannula 2.0 98.1 11/15/16 22:40 97.9 76 18 106/47 94 Room Air 97.9 11/15/16 19:40 97.7 80 18 111/46 92 Room Air 97.7 11/15/16 16:15 80 11/15/16 15:00 97.9 78 20 113/52 93 Room Air 97.9 I & O Intake and Output 11/16/16 07:00 Intake Total 700 ml Balance 700 ml Intake Oral 700 ml # Voids 3 PHYSICAL EXAM Physical Exam AAOx3, baseline sensorium compared to yesterday at this time, speech fluent, NAD , GORDON with full resistance but limited ROM hips, sensation intact LT, TTP right hip, pitting edema BLE unchanged ASSESSMENT/PLAN Assessment/Plan 86M with back pain, functional difficulty BLE, evidence of inflammatory process with apparent anterior 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 -MRI of remainder of spinal axis pending, lumbar CT myelogram pending, CSF studies pending acquisition -ID following - welcome any recs regarding any additional CSF studies -pt to receive breathing tx and CXR for soa per primary team - O2sat noted to be 98% on 2L NC presently and does not appear to be in acute distress Problems: COMMENT Lab Laboratory Tests Test 11/15/16 18:30 11/16/16 05:00 Prothrombin Time 15.8SEC (11.7-14.0) Prothromb Time International Ratio 1.3 (0.8-1.1) Activated Partial Thromboplast Time 61SEC (24-38) White Blood Count 5.5x10^3/uL (4.0-11.0) Red Blood Count 1.84x10^6/uL (4.30-5.70) Hemoglobin 7.5g/dL (13.0-17.5) Hematocrit 24.5% (39.0-53.0) Mean Corpuscular Volume 133fL (79-100) Mean Corpuscular Hemoglobin 41pg (25-35) Mean Corpuscular Hemoglobin Concent 31g/dL (31-37) Red Cell Distribution Width 25.2% (11.5-14.5) Platelet Count 523x10^3/uL (140-400) Neutrophils (%) (Auto) 77% (31-73) Lymphocytes (%) (Auto) 13% (24-48) Monocytes (%) (Auto) 9% (0-9) Eosinophils (%) (Auto) 0% (0-3) Basophils (%) (Auto) 1% (0-3) Neutrophils # (Auto) 4.2x10^3uL (1.8-7.7) Lymphocytes # (Auto) 0.7x10^3/uL (1.0-4.8) Monocytes # (Auto) 0.5x10^3/uL (0.0-1.1) Eosinophils # (Auto) 0.0x10^3/uL (0.0-0.7) Basophils # (Auto) 0.1x10^3/uL (0.0-0.2) ARIANNA WILKERSON MD Nov 16, 2016 14:14
[2016-11-16 14:58] LABS: HCO3 ABG 27 mmol/L (21-28); PCO2 ABG 37 mmHg (35-46); PH ABG 7.47 (7.35-7.45); PO2 ABG 89 mmHg (65-108); SAT O2 ABG 96 % (92-99)
[2016-11-16 15:00] LABS: FIO2 ABG 28%
--- NOTE | 2016-11-16 15:03 | RAD ---
AP portable chest. History: Dysphasia, dyspnea AP view was taken of the chest. There is mild elevation of the left diaphragm. There is linear atelectasis in the left lung base. There are no other infiltrates. Heart is within normal limits in size. There is no effusion. Impression: 1. Elevated left diaphragm with linear atelectasis left base.
--- NOTE | 2016-11-16 18:09 | PDOC ---
PROGRESS NOTES Subjective Subjective He has had the onset of confusion today and is not oriented to place. He feels SOA but has not been hypoxic, he has had trouble swallowing and nursing has not given him po meds as a result, his CXR is not showing any aspiration. No evidence of cauda equina syndrome but imaging studies pending. No clear indication of infection as cultures remain negative and being followed by ID. LP pending. 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 Sapp following, ID following, LP ordered, sed rate and CRP elevated but could be on the basis of rheumatologic disease (2) change in mental status, encephalopathy vs CVA vs microvascular disease (3) Left hip pain with abnormal fluid around hip and gluteal muscles (4) anemia, chonic, will transfuse in light of his change in mental condition (5) severe DJD- with pain, will remove fentanyl patch due to change in mental status (6) new oset of dysphagia, no evidence of aspiration, NPO for now, swallowing eval, may need GI consult, may need neurology consult (7) recent MRSA UTI - finished Bactrim, positive MRSA nasal swab Status: Acute Comment Review of Relevant I have reviewed the following items michael (where applicable) has been applied. Labs Laboratory Tests Test 11/14/16 22:43 11/14/16 23:00 11/15/16 04:19 11/15/16 18:30 Sodium Level 135mmol/L (136-145) 134mmol/L (136-145) Potassium Level 4.4mmol/L (3.5-5.1) 3.8mmol/L (3.5-5.1) Chloride Level 98mmol/L (98-107) 99mmol/L (98-107) Carbon Dioxide Level 28mmol/L (21-32) 31mmol/L (21-32) Anion Gap 9 (6-14) 4 (6-14) Blood Urea Nitrogen 20mg/dL (8-26) 17mg/dL (8-26) Creatinine 0.9mg/dL (0.7-1.3) 1.0mg/dL (0.7-1.3) Estimated GFR (Cockcroft-Gault) 79.6 70.5 Glucose Level 90mg/dL (70-99) 82mg/dL (70-99) Calcium Level 8.5mg/dL (8.5-10.1) 8.1mg/dL (8.5-10.1) Nasal Screen MRSA (PCR) Positive (Negative) White Blood Count 5.5x10^3/uL (4.0-11.0) Red Blood Count 1.83x10^6/uL (4.30-5.70) Hemoglobin 7.4g/dL (13.0-17.5) Hematocrit 23.0% (39.0-53.0) Mean Corpuscular Volume 126fL (79-100) Mean Corpuscular Hemoglobin 41pg (25-35) Mean Corpuscular Hemoglobin Concent 32g/dL (31-37) Red Cell Distribution Width 25.2% (11.5-14.5) Platelet Count 502x10^3/uL (140-400) Neutrophils (%) (Auto) 77% (31-73) Lymphocytes (%) (Auto) 11% (24-48) Monocytes (%) (Auto) 11% (0-9) Eosinophils (%) (Auto) 1% (0-3) Basophils (%) (Auto) 0% (0-3) Neutrophils # (Auto) 4.3x10^3uL (1.8-7.7) Lymphocytes # (Auto) 0.6x10^3/uL (1.0-4.8) Monocytes # (Auto) 0.6x10^3/uL (0.0-1.1) Eosinophils # (Auto) 0.0x10^3/uL (0.0-0.7) Basophils # (Auto) 0.0x10^3/uL (0.0-0.2) Platelet Estimate Increased (ADEQUATE) Large Platelets Present Polychromasia Present Poikilocytosis Slight Basophilic Stippling Present Anisocytosis Mod Macrocytosis Marked Ovalocytes Few C-Reactive Protein, Quantitative 69.6mg/L (0-3.3) Prothrombin Time 15.8SEC (11.7-14.0) Prothromb Time International Ratio 1.3 (0.8-1.1) Activated Partial Thromboplast Time 61SEC (24-38) Test 11/16/16 05:00 11/16/16 14:31 White Blood Count 5.5x10^3/uL (4.0-11.0) Red Blood Count 1.84x10^6/uL (4.30-5.70) Hemoglobin 7.5g/dL (13.0-17.5) Hematocrit 24.5% (39.0-53.0) Mean Corpuscular Volume 133fL (79-100) Mean Corpuscular Hemoglobin 41pg (25-35) Mean Corpuscular Hemoglobin Concent 31g/dL (31-37) Red Cell Distribution Width 25.2% (11.5-14.5) Platelet Count 523x10^3/uL (140-400) Neutrophils (%) (Auto) 77% (31-73) Lymphocytes (%) (Auto) 13% (24-48) Monocytes (%) (Auto) 9% (0-9) Eosinophils (%) (Auto) 0% (0-3) Basophils (%) (Auto) 1% (0-3) Neutrophils # (Auto) 4.2x10^3uL (1.8-7.7) Lymphocytes # (Auto) 0.7x10^3/uL (1.0-4.8) Monocytes # (Auto) 0.5x10^3/uL (0.0-1.1) Eosinophils # (Auto) 0.0x10^3/uL (0.0-0.7) Basophils # (Auto) 0.1x10^3/uL (0.0-0.2) D-Dimer (Fawn) 1.81ug/mlFEU (0.00-0.50) O2 Saturation 96% (92-99) Arterial Blood pH 7.47 (7.35-7.45) Arterial Blood pCO2 at Patient Temp 37mmHg (35-46) Arterial Blood pO2 at Patient Temp 89mmHg (65-108) Arterial Blood HCO3 27mmol/L (21-28) Arterial Blood Base Excess 3mmol/L (-3-3) FiO2 28% Laboratory Tests Test 11/15/16 18:30 11/16/16 05:00 11/16/16 14:31 Prothrombin Time 15.8SEC (11.7-14.0) Prothromb Time International Ratio 1.3 (0.8-1.1) Activated Partial Thromboplast Time 61SEC (24-38) White Blood Count 5.5x10^3/uL (4.0-11.0) Red Blood Count 1.84x10^6/uL (4.30-5.70) Hemoglobin 7.5g/dL (13.0-17.5) Hematocrit 24.5% (39.0-53.0) Mean Corpuscular Volume 133fL (79-100) Mean Corpuscular Hemoglobin 41pg (25-35) Mean Corpuscular Hemoglobin Concent 31g/dL (31-37) Red Cell Distribution Width 25.2% (11.5-14.5) Platelet Count 523x10^3/uL (140-400) Neutrophils (%) (Auto) 77% (31-73) Lymphocytes (%) (Auto) 13% (24-48) Monocytes (%) (Auto) 9% (0-9) Eosinophils (%) (Auto) 0% (0-3) Basophils (%) (Auto) 1% (0-3) Neutrophils # (Auto) 4.2x10^3uL (1.8-7.7) Lymphocytes # (Auto) 0.7x10^3/uL (1.0-4.8) Monocytes # (Auto) 0.5x10^3/uL (0.0-1.1) Eosinophils # (Auto) 0.0x10^3/uL (0.0-0.7) Basophils # (Auto) 0.1x10^3/uL (0.0-0.2) D-Dimer (Fanw) 1.81ug/mlFEU (0.00-0.50) O2 Saturation 96% (92-99) Arterial Blood pH 7.47 (7.35-7.45) Arterial Blood pCO2 at Patient Temp 37mmHg (35-46) Arterial Blood pO2 at Patient Temp 89mmHg (65-108) Arterial Blood HCO3 27mmol/L (21-28) Arterial Blood Base Excess 3mmol/L (-3-3) FiO2 28% Microbiology 11/15/16 Blood Culture - Preliminary, Resulted NO GROWTH AFTER 1 DAY Medications Current Medications Ondansetron HCl (Zofran) 4 mg PRN Q8HRS PRN IV NAUSEA/VOMITING Last administered on 11/14/16 22:44; Start 11/14/16 at 22:15; Stop 11/15/16 at 22:14; Status DC Fentanyl Citrate (Fentanyl 2ml Vial) 50 mcg PRN Q2HR PRN IV SEVERE PAIN Last administered on 11/14/16 22:46; Start 11/14/16 at 22:15; Stop 11/15/16 at 22:14; Status DC Acetaminophen (Tylenol) 650 mg PRN Q4HRS PRN PO FEVER; Start 11/14/16 at 22:15; Stop 11/15/16 at 22:14; Status DC Acetaminophen (Tylenol) 650 mg PRN Q6HRS PRN PO FEVER; Start 11/15/16 at 07:00 Albuterol Sulfate (Ventolin Neb Soln) 1 mg PRN Q6HRS PRN NEB SHORTNESS OF BREATH; Start 11/15/16 at 07:00 Carvedilol (Coreg) 3.125 mg BIDWMEALS PO Last administered on 11/15/16 16:15; Start 11/15/16 at 08:00 Citalopram Hydrobromide (Celexa) 20 mg DAILY PO Last administered on 11/15/16 11:05; Start 11/15/16 at 09:00 Fentanyl (Duragesic 75mcg/ Hr Patch) 1 patch Q72H TD Last administered on 11:04; Start 11/15/16 at 07:00; Stop 11/16/16 at 12:10; Status DC Finasteride (Proscar) 5 mg DAILY PO Last administered on 11/15/16 11:06; Start 11/15/16 at 09:00 Furosemide (Lasix) 40 mg DAILY PO Last administered on 11/15/16 11:06; Start at 09:00; Stop 11/16/16 at 17:42; Status DC Acetaminophen/ Hydrocodone Bitart (Lortab 10/325) 1 tab PRN Q6HRS PRN PO SEVERE PAIN Last administered on 11/15/16 16:14; Start 11/15/16 at 07:00 Hydroxyurea (Hydrea) 1,000 mg SuMoTuWeThSa PO Last administered on 11/15/16 21: 00; Start 11/15/16 at 21:00 Levothyroxine Sodium (Synthroid) 100 mcg DAILYAC PO Last administered on 11:05; Start 11/15/16 at 07:30 Pantoprazole Sodium (Protonix) 40 mg DAILYAC PO Last administered on 11/15/16 11:06; Start 11/15/16 at 07:30 Sennosides (Senna) 8.6 mg BID PO Last administered on 11/15/16 20:56; Start 11/15/16 at 09:00 Trimethoprim/ Sulfamethoxazole (Bactrim Ds) 1 tab BID PO Last administered on 11:30; Start 11/15/16 at 09:00; Stop 11/15/16 at 14:32; Status DC Calcium/Vitamin D (Oscal D 500mg/ 200uts) 1 tab DAILY PO Last administered on 11:06; Start 11/15/16 at 09:00 Multivitamins/ Calcium (Thera M Plus) 1 tab DAILY PO Last administered on 11:05; Start 11/15/16 at 09:00 Hydroxyurea (Hydrea) 1,500 mg QFRIDAY PO ; Start 11/21/16 at 21:00 Enoxaparin Sodium (Lovenox 40mg Syringe) 40 mg Q24H SQ Last administered on 11/16 13:51; Start 11/15/16 at 13:00 Albuterol Sulfate 2.5 mg 2.5 mg RTQID NEB Last administered on 11/16/16 14:06; Start 11/16/16 at 12:00 Dextrose/Lactated Ringer's (Iv D5%-Lr) 1,000 ml @ 75 mls/hr [id number] IV Last administered on 11/16/16t 13:49; Start 11/16/16 at 12:00 Furosemide (Lasix) 40 mg DAILY IVP ; Start 11/17/16 at 21:00 Active Scripts Active Bactrim Ds Tablet (Sulfamethoxazole/Trimethoprim) 1 Each Tablet 1 Tab PO BID Reported Senokot (Sennosides) 8.6 Mg Tablet 8.6 Mg PO BID Albuterol Sulfate Neb Soln (Albuterol Sulfate) 2.5 Mg/3 Ml Vial.neb 1 Vial NEB Q6HRS PRN Tylenol (Acetaminophen) 325 Mg Tablet 2 Tab PO Q6HRS PRN FENTANYL 75mcg/hr (Fentanyl) 1 Each Patch.td72 1 Patch TD Q72H Citalopram Hbr (Citalopram Hydrobromide) 20 Mg Tablet 1 Tab PO DAILY Furosemide 40 Mg Tablet 1 Tab PO DAILY Calcium 600 + Vit D 400 Softgl (Calcium Carbonate/Vitamin D3) 1 Each Capsule 600 Each PO DAILY Multi Vitamin Daily (Multivitamin) 1 Each Tablet 1 Each PO Finasteride 5 Mg Tablet 5 Mg PO DAILY Hydrocodone-Apap 10-325 (Hydrocodone Bit/Acetaminophen) 1 Each Tablet 1 Tab PO PRN Q6HRS PRN Hydroxyurea 500 Mg Capsule 1,000 Mg PO HS Pantoprazole Sodium 40 Mg Tablet.dr 40 Mg PO DAILY Carvedilol 3.125 Mg Tablet 3.125 Mg PO BIDWMEALS Levothyroxine Sodium 100 Mcg Tablet 100 Mcg PO DAILYAC Vitals/I & O Vital Sign - Last 24 Hours 11/15/16 11/15/16 11/16/16 11/16/16 19:40 22:40 03:11 07:00 Temp 97.7 97.9 98.1 97.5 97.7 97.9 98.1 97.5 Pulse 80 76 69 94 Resp 18 18 18 18 B/P 111/46 106/47 97/39 143/70 Pulse Ox 92 94 92 98 O2 Delivery Room Air Room Air Nasal Cannula Room Air O2 Flow Rate 2.0 11/16/16 11/16/16 11/16/16 11/16/16 08:00 11:00 14:09 15:00 Temp 97.7 98.1 97.7 98.1 Pulse 97 69 Resp 18 18 B/P 129/70 119/45 Pulse Ox 98 96 100 O2 Delivery Room Air Nasal Cannula Nasal Cannula O2 Flow Rate 2.0 2.0 Intake and Output 11/15/16 11/15/16 11/16/16 15:00 23:00 07:00 Intake Total 400 ml 300 ml Balance 400 ml 300 ml Savana MORENO MD Nov 16, 2016 18:09
[2016-11-16] MEDS ORDERED: ENOXAPARIN ** NOTE DOSE ** SYRINGE SQ SCH (21:00)
--- NOTE | 2016-11-16 21:08 | RAD ---
PROCEDURE Bilateral lower extremity venous duplex ultrasound. HISTORY Swelling of legs. Elevated D-dimer. TECHNIQUE Using spectral Doppler, color flow Doppler, and ballard scale imaging techniques the deep venous systems of the lower extremities were evaluated. COMPARISON None available. FINDINGS The right common femoral vein, superficial femoral vein, and popliteal vein are patent. In the calf the right posterior tibial and peroneal veins are patent. These vessels show no filling defects. There is normal augmentation in the vessels are normally compressible. There is edema in the right calf. The proximal right greater saphenous vein and visualized portions the profunda femoral vein are patent. In the left proximal superficial femoral vein there is a tiny area of thrombus behind a valve. In the left greater saphenous vein there is a tiny area of thrombus behind a proximal valve near its insertion into the common femoral vein. These vessels are not significantly and occluded. The remainder of the left superficial femoral vein is patent. Left common femoral vein, popliteal vein, posterior tibial veins, and peroneal veins are patent. There is left lower leg edema. Visualized portions of the left profunda femoral vein are patent. IMPRESSION There is a tiny amount of thrombus behind a valve in the left proximal superficial femoral vein and a valve and the left proximal greater saphenous vein. These do not significantly occlude the vessels. There is no evidence of right DVT. If clinically indicated a follow-up limited left lower extremity venous ultrasound could be performed to exclude propagation of minimal clot Electronically signed by: Merle Costello (Nov 16, 2016 21:06:47)
[2016-11-16] MEDS: HYDROCODONE/APAP 10/325 TABLET. PO PRN (22:24)
[2016-11-16] MEDS: HYDROXYUREA 500 MG CAPSULE PO SCH (22:30)
[2016-11-17] VITALS (7 sets, daily range): BP systolic 111–137; BP diastolic 50–70
[2016-11-17] MEDS: FUROSEMIDE 40 MG/4 ML VIAL IVP SCH ×2 (01:52→09:00)
[2016-11-17] MEDS: IV DEXTROSE 5%-LACT RINGERS 1,000 ML IV SCH (01:53)
[2016-11-17] MEDS: ALBUTEROL SULFATE 2.5 MG/3 ML NEBU. NEB SCH ×4 (08:00→19:10)
--- NOTE | 2016-11-17 09:06 | PDOC ---
PROGRESS NOTES Subjective Subjective Slept well last night, no complaints. Confusion resolved overnight. Patient is agreeable to testing that he was indifferent to yesterday. Objective Objective Vital Signs Date Time Temp Pulse Resp B/P Pulse Ox O2 Delivery O2 Flow Rate FiO2 11/17/16 07:00 98.4 85 18 137/70 96 Nasal Cannula 3.0 98.4 Intake and Output 11/17/16 07:00 Intake Total 150 ml Balance 150 ml Intake Oral 50 ml Blood Product IV Normal Saline Flush 100 ml # Voids 2 Physical Exam Abdomen: Normal bowel sounds Heart: Regular rate, Other (3/6 calcific valve disease) Extremities: Other (LE edema improved, still has pedal edema, arthritic deformities of hands present but demand equipment repairer okay,) General: Alert, Oriented X3, Cooperative, No acute distress HEENT: Atraumatic, Other (mouth dry) Lungs: Clear to auscultation, Normal air movement MUSCULOSKELETAL: Other (Able to move legs while laying in bed but has not ambulated today) Neck: Supple, No thyromegaly Neuro: Normal speech, Normal tone, Sensation intact Skin: No rashes Assessment Assessment Problems Medical Problems: (1) Lumbar back pain - severe spinal stenosis, abnormal f/u MRI, Dr. Sapp following, ID following, LP ordered, sed rate and CRP elevated but could be on the basis of rheumatologic disease (2) Mental status back to normal, agreeable to complete ordered tests (3) Left hip pain with abnormal fluid around hip and gluteal muscles (4) Anemia, chronic, transfused yesterday evening, Hgb pending this morning (5) Severe DJD - with pain, fentanyl patch not placed due to mental status changes (6) New onset of dysphagia, no evidence of aspiration, NPO for now, swallowing eval, may need GI consult, may need neurology consult (7) Recent MRSA UTI - finished Bactrim, positive MRSA nasal swab (8) Elevated D-dimer - await venous doppler (9) Atelectasis on chest X-ray - continue Neb treatments Status: Acute Plan Plan of Care Await studies, LP, but improved significantly from yesterday after transfusion and discontinuing fentanyl patch Comment Review of Relevant I have reviewed the following items michael (where applicable) has been applied. Labs Laboratory Tests Test 11/15/16 18:30 11/16/16 05:00 11/16/16 14:31 Prothrombin Time 15.8SEC (11.7-14.0) Prothromb Time International Ratio 1.3 (0.8-1.1) Activated Partial Thromboplast Time 61SEC (24-38) White Blood Count 5.5x10^3/uL (4.0-11.0) Red Blood Count 1.84x10^6/uL (4.30-5.70) Hemoglobin 7.5g/dL (13.0-17.5) Hematocrit 24.5% (39.0-53.0) Mean Corpuscular Volume 133fL (79-100) Mean Corpuscular Hemoglobin 41pg (25-35) Mean Corpuscular Hemoglobin Concent 31g/dL (31-37) Red Cell Distribution Width 25.2% (11.5-14.5) Platelet Count 523x10^3/uL (140-400) Neutrophils (%) (Auto) 77% (31-73) Lymphocytes (%) (Auto) 13% (24-48) Monocytes (%) (Auto) 9% (0-9) Eosinophils (%) (Auto) 0% (0-3) Basophils (%) (Auto) 1% (0-3) Neutrophils # (Auto) 4.2x10^3uL (1.8-7.7) Lymphocytes # (Auto) 0.7x10^3/uL (1.0-4.8) Monocytes # (Auto) 0.5x10^3/uL (0.0-1.1) Eosinophils # (Auto) 0.0x10^3/uL (0.0-0.7) Basophils # (Auto) 0.1x10^3/uL (0.0-0.2) D-Dimer (Fawn) 1.81ug/mlFEU (0.00-0.50) O2 Saturation 96% (92-99) Arterial Blood pH 7.47 (7.35-7.45) Arterial Blood pCO2 at Patient Temp 37mmHg (35-46) Arterial Blood pO2 at Patient Temp 89mmHg (65-108) Arterial Blood HCO3 27mmol/L (21-28) Arterial Blood Base Excess 3mmol/L (-3-3) FiO2 28% Laboratory Tests Test 11/16/16 14:31 D-Dimer (Fawn) 1.81ug/mlFEU (0.00-0.50) O2 Saturation 96% (92-99) Arterial Blood pH 7.47 (7.35-7.45) Arterial Blood pCO2 at Patient Temp 37mmHg (35-46) Arterial Blood pO2 at Patient Temp 89mmHg (65-108) Arterial Blood HCO3 27mmol/L (21-28) Arterial Blood Base Excess 3mmol/L (-3-3) FiO2 28% Microbiology 11/15/16 Blood Culture - Preliminary, Resulted NO GROWTH AFTER 1 DAY Medications Current Medications Ondansetron HCl (Zofran) 4 mg PRN Q8HRS PRN IV NAUSEA/VOMITING Last administered on 11/14/16 22:44; Start 11/14/16 at 22:15; Stop 11/15/16 at 22:14; Status DC Fentanyl Citrate (Fentanyl 2ml Vial) 50 mcg PRN Q2HR PRN IV SEVERE PAIN Last administered on 11/14/16 22:46; Start 11/14/16 at 22:15; Stop 11/15/16 at 22:14; Status DC Acetaminophen (Tylenol) 650 mg PRN Q4HRS PRN PO FEVER; Start 11/14/16 at 22:15; Stop 11/15/16 at 22:14; Status DC Acetaminophen (Tylenol) 650 mg PRN Q6HRS PRN PO FEVER; Start 11/15/16 at 07:00 Albuterol Sulfate (Ventolin Neb Soln) 1 mg PRN Q6HRS PRN NEB SHORTNESS OF BREATH; Start 11/15/16 at 07:00 Carvedilol (Coreg) 3.125 mg BIDWMEALS PO Last administered on 11/15/16 16:15; Start 11/15/16 at 08:00 Citalopram Hydrobromide (Celexa) 20 mg DAILY PO Last administered on 11/15/16 11:05; Start 11/15/16 at 09:00 Fentanyl (Duragesic 75mcg/ Hr Patch) 1 patch Q72H TD Last administered on 11:04; Start 11/15/16 at 07:00; Stop 11/16/16 at 12:10; Status DC Finasteride (Proscar) 5 mg DAILY PO Last administered on 11/15/16 11:06; Start 11/15/16 at 09:00 Furosemide (Lasix) 40 mg DAILY PO Last administered on 11/15/16 11:06; Start at 09:00; Stop 11/16/16 at 17:42; Status DC Acetaminophen/ Hydrocodone Bitart (Lortab 10/325) 1 tab PRN Q6HRS PRN PO SEVERE PAIN Last administered on 11/16/16 22:24; Start 11/15/16 at 07:00 Hydroxyurea (Hydrea) 1,000 mg SuMoTuWeThSa PO Last administered on 11/16/16 22: 30; Start 11/15/16 at 21:00 Levothyroxine Sodium (Synthroid) 100 mcg DAILYAC PO Last administered on 11:05; Start 11/15/16 at 07:30 Pantoprazole Sodium (Protonix) 40 mg DAILYAC PO Last administered on 11/15/16 11:06; Start 11/15/16 at 07:30 Sennosides (Senna) 8.6 mg BID PO Last administered on 11/16/16 22:24; Start 11/15/16 at 09:00 Trimethoprim/ Sulfamethoxazole (Bactrim Ds) 1 tab BID PO Last administered on 11:30; Start 11/15/16 at 09:00; Stop 11/15/16 at 14:32; Status DC Calcium/Vitamin D (Oscal D 500mg/ 200uts) 1 tab DAILY PO Last administered on 11:06; Start 11/15/16 at 09:00 Multivitamins/ Calcium (Thera M Plus) 1 tab DAILY PO Last administered on 11:05; Start 11/15/16 at 09:00 Hydroxyurea (Hydrea) 1,500 mg QFRIDAY PO ; Start 11/21/16 at 21:00 Enoxaparin Sodium (Lovenox 40mg Syringe) 40 mg Q24H SQ Last administered on 11/16 13:51; Start 11/15/16 at 13:00; Stop 11/16/16 at 19:19; Status DC Albuterol Sulfate 2.5 mg 2.5 mg RTQID NEB Last administered on 11/16/16 18:21; Start 11/16/16 at 12:00 Dextrose/Lactated Ringer's (Iv D5%-Lr) 1,000 ml @ 75 mls/hr [id number] IV Last administered on 11/17/16 01:53; Start 11/16/16 at 12:00 Furosemide (Lasix) 40 mg DAILY IVP ; Start 11/17/16 at 21:00; Stop 11/17/16 at 21: 00; Status DC Furosemide (Lasix) 40 mg DAILY IVP Last administered on 11/17/16 01:52; Start 11/16/16 at 21:00 Enoxaparin Sodium (Lovenox 100mg Syringe) 90 mg Q12HR SQ Last administered on 22:25; Start 11/16/16 at 21:00 Active Scripts Active Bactrim Ds Tablet (Sulfamethoxazole/Trimethoprim) 1 Each Tablet 1 Tab PO BID Reported Senokot (Sennosides) 8.6 Mg Tablet 8.6 Mg PO BID Albuterol Sulfate Neb Soln (Albuterol Sulfate) 2.5 Mg/3 Ml Vial.neb 1 Vial NEB Q6HRS PRN Tylenol (Acetaminophen) 325 Mg Tablet 2 Tab PO Q6HRS PRN FENTANYL 75mcg/hr (Fentanyl) 1 Each Patch.td72 1 Patch TD Q72H Citalopram Hbr (Citalopram Hydrobromide) 20 Mg Tablet 1 Tab PO DAILY Furosemide 40 Mg Tablet 1 Tab PO DAILY Calcium 600 + Vit D 400 Softgl (Calcium Carbonate/Vitamin D3) 1 Each Capsule 600 Each PO DAILY Multi Vitamin Daily (Multivitamin) 1 Each Tablet 1 Each PO Finasteride 5 Mg Tablet 5 Mg PO DAILY Hydrocodone-Apap 10-325 (Hydrocodone Bit/Acetaminophen) 1 Each Tablet 1 Tab PO PRN Q6HRS PRN Hydroxyurea 500 Mg Capsule 1,000 Mg PO HS Pantoprazole Sodium 40 Mg Tablet.dr 40 Mg PO DAILY Carvedilol 3.125 Mg Tablet 3.125 Mg PO BIDWMEALS Levothyroxine Sodium 100 Mcg Tablet 100 Mcg PO DAILYAC Vitals/I & O Vital Sign - Last 24 Hours 11/16/16 11/16/16 11/16/16 11/16/16 11:00 14:09 15:00 18:22 Temp 97.7 98.1 97.7 98.1 Pulse 97 69 Resp 18 18 B/P 129/70 119/45 Pulse Ox 98 96 100 O2 Delivery Nasal Cannula Nasal Cannula Nasal Cannula O2 Flow Rate 2.0 2.0 3.0 11/16/16 11/16/16 11/16/16 11/16/16 19:25 20:00 22:24 23:00 Temp 97.7 98.6 97.7 98.6 Pulse 85 72 Resp 18 18 B/P 137/55 120/54 Pulse Ox 95 99 O2 Delivery Nasal Cannula Nasal Cannula Room Air Nasal Cannula O2 Flow Rate 3.0 3.0 3.0 11/16/16 11/16/16 11/17/16 11/17/16 23:22 23:37 00:35 00:50 Temp 98.6 98.4 97.9 97.8 98.6 98.4 97.9 97.8 Pulse 75 69 74 79 Resp 18 18 16 16 B/P 120/54 129/56 116/65 118/63 11/17/16 11/17/16 11/17/16 01:52 02:56 07:00 Temp 99.3 98.4 99.3 98.4 Pulse 74 85 Resp 18 18 B/P 124/51 137/70 Pulse Ox 100 96 O2 Delivery Nasal Cannula Nasal Cannula Nasal Cannula O2 Flow Rate 3.0 3.0 3.0 Intake and Output 11/16/16 11/16/16 11/17/16 15:00 23:00 07:00 Intake Total 50 ml 100 ml Balance 50 ml 100 ml Savana MORENO MD Nov 17, 2016 09:06
[2016-11-17] MEDS: CARVEDILOL 3.125 MG TABLET PO SCH ×2 (09:09→17:44)
[2016-11-17] MEDS: CITALOPRAM 20 MG TABLET. PO SCH (09:09)
[2016-11-17] MEDS: CALCIUM CARB/VIT D3 500/200 TABLET PO SCH (09:10)
[2016-11-17] MEDS: HYDROCODONE/APAP 10/325 TABLET. PO PRN ×3 (09:10→20:54)
[2016-11-17] MEDS: FINASTERIDE 5 MG TABLET PO SCH (09:11)
[2016-11-17] MEDS: MULTIVITAMIN with MINERAL TABLET. PO SCH (09:11)
[2016-11-17] MEDS: LEVOTHYROXINE 100 MCG TABLET PO SCH (09:11)
[2016-11-17] MEDS: PANTOPRAZOLE 40 MG TABLET. PO SCH (09:11)
[2016-11-17] MEDS: SENNOSIDES 8.6 MG TABLET PO SCH ×2 (09:11→20:54)
--- NOTE | 2016-11-17 10:14 | RAD ---
PROCEDURE MRI brain without contrast. HISTORY Left-sided facial droop for 1 day TECHNIQUE Sagittal and axial T1, axial and coronal T2, axial diffusion, axial FLAIR, and axial gradient echo T2 weighted images were acquired of the brain. COMPARISON None FINDINGS There is some motion degradation. There is no restricted diffusion suggestive of recent infarct or cytotoxic edema. There is mild to moderate generalized supratentorial atrophy, ventricular size proportional to the sulcal spaces. There is multifocal moderate to severe T2 and FLAIR hyperintense signal abnormality of the supratentorial white matter bilaterally greatest of the frontal parietal lobes and periatrial white matter. There is no intra-axial mass effect, midline shift, extra-axial fluid collection. There is preservation of the major arterial intracranial flow voids at the skull base. There has been lens surgery bilaterally, slightly dysconjugate gaze. There is patchy very mild ethmoid air cell and maxillary sinus mucosal thickening. Mastoid air cells are overall aerated. Cerebellar tonsils are normal in location. There is preservation of the marrow signal of the clivus. 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 There is no significant abnormality of the pineal gland. There is no significant hemosiderin deposition of the brain parenchyma. IMPRESSION 1. There is no evidence of recent infarct or intracranial mass effect. 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 Multifocal moderate to severe T2 and FLAIR hyperintense signal abnormality of the supratentorial white matter is nonspecific although most commonly due to chronic microvascular ischemic disease in a patient of this age. Electronically signed by: Ye Avitia MD (Nov 17, 2016 10:12:53)
[2016-11-17] MEDS ORDERED: GADOBUTROL 7.5 MMOL/7.5 ML VIAL IV ONE (10:30)
[2016-11-17 11:20] LABS: BASO # 0.1 x10^3/uL (0.0-0.2); BASO % 3 % (0-3); EOS % 2 % (0-3); HEMATOCRIT 26.7 % (39.0-53.0); HEMOGLOBIN 8.6 g/dL (13.0-17.5); LYMPH # 0.5 x10^3/uL (1.0-4.8); LYMPH % 15 % (24-48); MEAN CORPUSCULAR HEMOGLOBIN 38 pg (25-35); MEAN CORPUSCULAR HGB CONC 32 g/dL (31-37); MEAN CORPUSCULAR VOLUME 117 fL (79-100); MONO % 11 % (0-9); NEUT % 70 % (31-73); PLATELET COUNT 509 x10^3/uL (140-400); RED BLOOD COUNT 2.28 x10^6/uL (4.30-5.70); WHITE BLOOD COUNT 3.4 x10^3/uL (4.0-11.0)
[2016-11-17 11:33] LABS: CALCIUM 8.4 mg/dL (8.5-10.1); CREATININE 0.8 mg/dL (0.7-1.3); GFR 91.2
--- NOTE | 2016-11-17 12:02 | PDOC ---
SUBJECTIVE Subjective Reports back pain improved. Reports hip pain. Denies acute changes. ROS: denies soa at this time, denies chest pain, denies paresthesias OBJECTIVE Objective MRI brain with atrophy, no restricted diffusion MRI thoracic spine with diffuse degenerative changes, no abnormal signal or fluid collections MRI cervical spine with diffuse degenerative changes, enhancement noted of posterior dura, stenosis most prominent C2-3 noted Vital Signs Vital Signs Date Time Temp Pulse Resp B/P Pulse Ox O2 Delivery O2 Flow Rate FiO2 11/17/16 10:10 18 96 Nasal Cannula 2.0 11/17/16 09:10 18 96 Nasal Cannula 2.0 11/17/16 09:09 85 137/70 11/17/16 08:00 Nasal Cannula 2.0 11/17/16 07:00 98.4 85 18 137/70 96 Nasal Cannula 3.0 98.4 11/17/16 02:56 99.3 74 18 124/51 100 Nasal Cannula 3.0 99.3 11/17/16 00:50 97.8 79 16 118/63 97.8 11/17/16 00:35 97.9 74 16 116/65 97.9 11/16/16 23:37 98.4 69 18 129/56 98.4 11/16/16 23:22 98.6 75 18 120/54 98.6 11/16/16 23:00 98.6 72 18 120/54 99 Nasal Cannula 3.0 98.6 11/16/16 22:24 Room Air 3.0 11/16/16 20:00 Nasal Cannula 11/16/16 19:25 97.7 85 18 137/55 95 Nasal Cannula 3.0 97.7 11/16/16 18:22 Nasal Cannula 3.0 11/16/16 15:00 98.1 69 18 119/45 100 Nasal Cannula 2.0 98.1 11/16/16 14:09 96 I & O Intake and Output 11/17/16 07:00 Intake Total 150 ml Balance 150 ml Intake Oral 50 ml Blood Product IV Normal Saline Flush 100 ml # Voids 2 PHYSICAL EXAM Physical Exam AAOx4, NAD, GORDON with limited ROM R>L hip and limited ROM right shoulder, right hip TTP, edema noted bilateral feet, ASSESSMENT/PLAN Assessment/Plan 86M with abnormal imaging and altered function in lower extremities -neuro stable since admission -stenosis C2-3, some posterior dural enhancement cervical spine -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 -CT myelogram lumbar spine and LP pending (low volume) -complicated picture with multiple issues that may contribute, inflammatory signs present -hip exam suggestive of potential local hip pathology contributing to hip pain -of note, he explains that he does not wish to be very aggressive with treatments, reporting that he would not proceed with spine surgery if recommended Problems: COMMENT Lab Laboratory Tests Test 11/16/16 14:31 11/17/16 11:10 D-Dimer (Fawn) 1.81ug/mlFEU (0.00-0.50) O2 Saturation 96% (92-99) Arterial Blood pH 7.47 (7.35-7.45) Arterial Blood pCO2 at Patient Temp 37mmHg (35-46) Arterial Blood pO2 at Patient Temp 89mmHg (65-108) Arterial Blood HCO3 27mmol/L (21-28) Arterial Blood Base Excess 3mmol/L (-3-3) FiO2 28% White Blood Count 3.4x10^3/uL (4.0-11.0) Red Blood Count 2.28x10^6/uL (4.30-5.70) Hemoglobin 8.6g/dL (13.0-17.5) Hematocrit 26.7% (39.0-53.0) Mean Corpuscular Volume 117fL (79-100) Mean Corpuscular Hemoglobin 38pg (25-35) Mean Corpuscular Hemoglobin Concent 32g/dL (31-37) Red Cell Distribution Width 31.0% (11.5-14.5) Platelet Count 509x10^3/uL (140-400) Neutrophils (%) (Auto) 70% (31-73) Lymphocytes (%) (Auto) 15% (24-48) Monocytes (%) (Auto) 11% (0-9) Eosinophils (%) (Auto) 2% (0-3) Basophils (%) (Auto) 3% (0-3) Neutrophils # (Auto) 2.4x10^3uL (1.8-7.7) Lymphocytes # (Auto) 0.5x10^3/uL (1.0-4.8) Monocytes # (Auto) 0.4x10^3/uL (0.0-1.1) Eosinophils # (Auto) 0.1x10^3/uL (0.0-0.7) Basophils # (Auto) 0.1x10^3/uL (0.0-0.2) Sodium Level 136mmol/L (136-145) Potassium Level 4.0mmol/L (3.5-5.1) Chloride Level 99mmol/L (98-107) Carbon Dioxide Level 34mmol/L (21-32) Anion Gap 3 (6-14) Blood Urea Nitrogen 9mg/dL (8-26) Creatinine 0.8mg/dL (0.7-1.3) Estimated GFR (Cockcroft-Gault) 91.2 Glucose Level 96mg/dL (70-99) Calcium Level 8.4mg/dL (8.5-10.1) ARIANNA WILKERSON MD Nov 17, 2016 12:02
--- NOTE | 2016-11-17 14:22 | RAD ---
PROCEDURE MRI cervical spine without and with contrast. HISTORY Chronic neck pain, arm and leg weakness, previous back surgery TECHNIQUE Sagittal and axial T1 and T2, sagittal STIR, and postcontrast sagittal and axial T1 weighted images were acquired of the cervical spine. Contrast: 7.5 cc Gadavist. COMPARISON None FINDINGS There is motion degradation. Cervical cord caliber is within normal limits. Accurate evaluation for cervical or cord signal abnormality is limited due to motion. There is no expansile cervical cord signal abnormality. There is relatively diffuse dural thickening and enhancement greater posteriorly such as extending from C1 to C5. There is resultant indentation upon the dorsal thecal sac greatest at C2-3. There is fairly advanced narrowing of the C5-C6 intervertebral disc space at which there is likely partial interbody fusion on the left. There is also advanced degenerative disc disease at C6-7 and T1-2, to a somewhat lesser degree at C7-T1. Cervical vertebral body stature is preserved. There is very minimal grade 1 anterior spondylolisthesis at C3-4 and C4-5. C2-3: There is again indentation upon the dorsal thecal sac by prominent posterior enhancement. There is also posterior protrusion. Central canal is narrowed to approximately 5 millimeters. There is moderate left facet degenerative change, mild dorsal narrowing of the left neural foramen. Right neural foramen is adequate. C3-4: There is a shallow posterior protrusion. There is mild indentation upon the dorsal thecal sac by posterior enhancement, central canal estimated at approximately 8 millimeters. There is facet hypertrophic change greater on the left. Right neural foramen is adequate, suspected mild to moderate narrowing of the left neural foramen. C4-5: There is severe right facet degenerative change, minimally on the left. There is a shallow posterior bulge/protrusion. There is mild indentation upon the dorsal thecal sac by posterior enhancement. Central canal is estimated at 7-8 millimeters. There is mild right uncovertebral degenerative change. Left neural foramina is adequate, likely overall mild narrowing of the right neural foramen. C5-C6: There is posterior disc osteophyte complex/osteophytic bridging. Central canal is likely narrowed to approximately 8 millimeters. There is bilateral facet degenerative change. Neural foramina are not obviously narrowed. C6-7: There is posterior disc osteophyte complex. Central canal is likely narrowed on the order of approximately 6-7 millimeters. There is facet and uncovertebral degenerative change. There is probable at least moderate narrowing of the left neural foramen, right neural foramen not obviously narrowed. C7-T1: Central canal is overall adequate. There is uncovertebral degenerative change greater on the left. There is facet degenerative change. There is likely moderate to severe narrowing of the left neural foramen, probable mild narrowing on the right. IMPRESSION 1. There is thickening and enhancement of the posterior dura greater superiorly of the cervical spine. Findings could be due to sequela of infection such as meningitis or related to previous fluid collection/hemorrhage. There is indentation upon the posterior thecal sac greatest at C2-3. There is spinal stenosis on the order 5 millimeters C2-3, other mild spinal stenosis C3-4 to C5-C6. There is also spinal stenosis on the order of 6-7 millimeters at C6-7. 2. There is multilevel degenerative disc disease greatest at C5-C6, C6-7, T1-2, likely partial interbody fusion at C5-C6. 3. Accurate evaluation of neural foramina is limited due to motion, suspected narrowing greatest on the left at C6-7 and C7-T1. Electronically signed by: Ye Avitia MD (Nov 17, 2016 14:21:22)
--- NOTE | 2016-11-17 14:46 | RAD ---
PROCEDURE MRI thoracic spine without and with contrast. HISTORY Chronic back pain, arm and leg weakness TECHNIQUE Sagittal and axial T1 and T2, sagittal STIR, and postcontrast sagittal axial T1 weighted images were acquired of the thoracic spine. Contrast: 7.5 cc Gadavist COMPARISON None FINDINGS There is motion degradation variably for all image sequences. Thoracic cord caliber is within normal limits without obvious or expansile signal abnormality although limited evaluation for subtle signal change due to motion. There is no obvious enhancement of the thoracic cord. There is amorphous edema of the inferior T9 endplate with associated mild enhancement, no enhancement within the intervertebral disc space. There is also very mild edema about T8-9 Schmorl's nodes. There is also mild C6-C7 endplate edema, no enhancement within or fluid within the intervertebral disc space at this level. There is mild old superior inferior T11 endplate concavity, otherwise thoracic vertebral body stature overall preserved. There is multilevel degenerative disc disease, variable moderate to severe narrowing of mid to superior thoracic levels. There is heterogeneity of the marrow signal which may be due to senescent change. There are apparently small bilateral pleural effusions. There may be ectatic ascending thoracic aorta although poorly evaluated. 2.3 centimeter T2 hyperintense lesion left kidney superiorly is likely a cyst. Levels with abnormalities include: T1-2: There is minimal disc osteophyte complex, likely mild narrowing of the central canal 9-10 millimeters. There is likely at least mild to moderate neural foramina compromise at this level. T2-3: There is minimal disc osteophyte complex. Central canal is narrowed to 7 millimeters to approximately 8 millimeters. There is buckling of the ligamentum flavum. There is facet degenerative change. There is likely mild narrowing of the neural foramina. T3-4: There is minimal disc osteophyte complex. Central canal is narrowed to 8-9 millimeters. There is buckling of the ligamentum flavum. Neural foramina are adequate. T4-5: There is a very shallow posterior protrusion without significant spinal stenosis. There is facet degenerative change and buckling of the ligamentum flavum, neural foramina not obviously narrowed. T5-T6: There is very minimal disc osteophyte complex. Spinal canal is adequate. Neural foramina are not significantly narrowed. T6-7: There is negligible protrusion. Spinal canal and neural foramina are overall adequate. T7-T8: There is a broad posterior protrusion. Central canal is narrowed to 8-9 millimeters also with minimal narrowing of the lateral recesses. There is facet degenerative change, mild posterior narrowing of the neural foramina. T8-T9: There is minimal disc osteophyte complex. Central canal is borderline 10 millimeters. There is facet degenerative change, likely mild to moderate neural foramina compromise bilaterally. T9-T10: There is buckling of the ligamentum flavum and facet degenerative change. Spinal canal is not significantly narrowed. There is likely at least moderate neural foramina compromise greater on the left. T10-11: There is facet degenerative change, likely moderate narrowing of the left neural foramen. Right neural foramina is adequate. Spinal canal is overall adequate. There is very minimal disc osteophyte complex. T11-12: Spinal canal and right neural foramen are adequate. There is mild to moderate narrowing of the left neural foramen by facet degenerative change. IMPRESSION 1. Exam is degraded by motion. There is multilevel mild spinal stenosis of the thoracic spine. There is suspected multilevel neural foramina compromise in part from facet degenerative change. 2. There is multilevel thoracic degenerative disc disease. There is nonspecific amorphous edema of the anterior T9 endplate, also amorphous edema at C6-7. Findings are more likely to be reactive/degenerative in etiology, no fluid or enhancement within the intervertebral disc spaces as more commonly associated with infection assuming no clinical suspicion for early infection. 3. There are small bilateral pleural effusions. Electronically signed by: Ye Avitia MD (Nov 17, 2016 14:45:29)
[2016-11-17] MEDS ORDERED: FUROSEMIDE 40 MG/4 ML VIAL IVP SCH (21:00)
[2016-11-17] MEDS: HYDROXYUREA 500 MG CAPSULE PO SCH (21:00)
[2016-11-18 03:00] VITALS: BP 129/56
[2016-11-18] MEDS: HYDROCODONE/APAP 10/325 TABLET. PO PRN (03:37)
[2016-11-18 07:00] VITALS: BP 118/53
[2016-11-18] MEDS: ALBUTEROL SULFATE 2.5 MG/3 ML NEBU. NEB SCH ×3 (07:43→20:10)
[2016-11-18] MEDS: PANTOPRAZOLE 40 MG TABLET. PO SCH (07:57)
[2016-11-18] MEDS: LEVOTHYROXINE 100 MCG TABLET PO SCH (07:58)
[2016-11-18] MEDS: CARVEDILOL 3.125 MG TABLET PO SCH ×2 (08:00→17:00)
[2016-11-18] MEDS: FINASTERIDE 5 MG TABLET PO SCH (09:00)
[2016-11-18] MEDS: CALCIUM CARB/VIT D3 500/200 TABLET PO SCH (09:00)
[2016-11-18] MEDS: FUROSEMIDE 40 MG/4 ML VIAL IVP SCH (09:00)
[2016-11-18] MEDS: MULTIVITAMIN with MINERAL TABLET. PO SCH (09:00)
[2016-11-18] MEDS: CITALOPRAM 20 MG TABLET. PO SCH (09:00)
[2016-11-18] MEDS: SENNOSIDES 8.6 MG TABLET PO SCH ×2 (09:00→21:35)
--- NOTE | 2016-11-18 09:05 | PDOC ---
PROGRESS NOTES Subjective Subjective Patient did well overnight. No complaints of chest pain, abdominal pain. Complains of left hip pain this morning. Going for LP soon. Nursing has identified a heel ulcer which the wound team is taking care of, ulcer is dressed and feet are in Rook boots. Objective Objective Vital Signs Date Time Temp Pulse Resp B/P Pulse Ox O2 Delivery O2 Flow Rate FiO2 11/18/16 07:43 99 Nasal Cannula 2.0 11/18/16 07:00 98.0 70 18 118/53 98.0 Intake and Output 11/18/16 07:00 Intake Total 550 ml Balance 550 ml Intake Oral 550 ml # Voids 7 Physical Exam Abdomen: Normal bowel sounds, No tenderness Heart: Regular rate Extremities: Other (Edema of dorsal feet and lower legs has improved, left calf slightly larger than right.) General: Alert, Oriented X3, moderate distress (due to left hip pain) HEENT: Atraumatic, Other (dry mucous membranes, wearing glasses) Lungs: Other (Some crackles heard in left lung base) MUSCULOSKELETAL: Abnormal exam of left (hip, with greater trochanteric pain with palpation, increased pain with movement when adjusting Rook boots) Neck: Supple Neuro: Normal speech Psych/Mental Status: Mental status NL Skin: Other (Pressure ulcer on right heel wearing Rook boot, resolving superficial abrasions of face) Assessment Assessment Problems Medical Problems: (1) Lumbar back pain - severe spinal stenosis, abnormal f/u MRI, Dr. Sapp following, ID following, LP ordered, sed rate and CRP elevated but could be on the basis of rheumatologic disease (2) Mental status back to normal, agreeable to complete ordered tests (3) Left hip pain - worsened overnight, with abnormal fluid around hip and gluteal muscles (4) Anemia, chronic, transfused on 11/16/16, Hgb up to 8.5 (5) Severe DJD - with pain, fentanyl patch not placed due to mental status changes (6) New onset of dysphagia, no evidence of aspiration, NPO for now, swallowing eval, may need GI consult, may need neurology consult (7) Recent MRSA UTI - finished Bactrim, positive MRSA nasal swab (8) Elevated D-dimer - There is a tiny amount of thrombus behind a valve in the left proximal superficial femoral vein and a valve and the left proximal greater saphenous vein. These do not significantly occlude the vessels. There is no evidence of right DVT. If clinically indicated a follow-up limited left lower extremity venous ultrasound could be performed to exclude propagation of minimal clot. (9) Atelectasis on chest X-ray - continue Neb treatments (10) Pressure ulcer, right heel - check albumin, consider nutritional supplements Comment Review of Relevant I have reviewed the following items michael (where applicable) has been applied. Labs Laboratory Tests Test 11/16/16 14:31 11/17/16 11:10 D-Dimer (Fawn) 1.81ug/mlFEU (0.00-0.50) O2 Saturation 96% (92-99) Arterial Blood pH 7.47 (7.35-7.45) Arterial Blood pCO2 at Patient Temp 37mmHg (35-46) Arterial Blood pO2 at Patient Temp 89mmHg (65-108) Arterial Blood HCO3 27mmol/L (21-28) Arterial Blood Base Excess 3mmol/L (-3-3) FiO2 28% White Blood Count 3.4x10^3/uL (4.0-11.0) Red Blood Count 2.28x10^6/uL (4.30-5.70) Hemoglobin 8.6g/dL (13.0-17.5) Hematocrit 26.7% (39.0-53.0) Mean Corpuscular Volume 117fL (79-100) Mean Corpuscular Hemoglobin 38pg (25-35) Mean Corpuscular Hemoglobin Concent 32g/dL (31-37) Red Cell Distribution Width 31.0% (11.5-14.5) Platelet Count 509x10^3/uL (140-400) Neutrophils (%) (Auto) 70% (31-73) Lymphocytes (%) (Auto) 15% (24-48) Monocytes (%) (Auto) 11% (0-9) Eosinophils (%) (Auto) 2% (0-3) Basophils (%) (Auto) 3% (0-3) Neutrophils # (Auto) 2.4x10^3uL (1.8-7.7) Lymphocytes # (Auto) 0.5x10^3/uL (1.0-4.8) Monocytes # (Auto) 0.4x10^3/uL (0.0-1.1) Eosinophils # (Auto) 0.1x10^3/uL (0.0-0.7) Basophils # (Auto) 0.1x10^3/uL (0.0-0.2) Sodium Level 136mmol/L (136-145) Potassium Level 4.0mmol/L (3.5-5.1) Chloride Level 99mmol/L (98-107) Carbon Dioxide Level 34mmol/L (21-32) Anion Gap 3 (6-14) Blood Urea Nitrogen 9mg/dL (8-26) Creatinine 0.8mg/dL (0.7-1.3) Estimated GFR (Cockcroft-Gault) 91.2 Glucose Level 96mg/dL (70-99) Calcium Level 8.4mg/dL (8.5-10.1) Laboratory Tests Test 11/17/16 11:10 White Blood Count 3.4x10^3/uL (4.0-11.0) Red Blood Count 2.28x10^6/uL (4.30-5.70) Hemoglobin 8.6g/dL (13.0-17.5) Hematocrit 26.7% (39.0-53.0) Mean Corpuscular Volume 117fL (79-100) Mean Corpuscular Hemoglobin 38pg (25-35) Mean Corpuscular Hemoglobin Concent 32g/dL (31-37) Red Cell Distribution Width 31.0% (11.5-14.5) Platelet Count 509x10^3/uL (140-400) Neutrophils (%) (Auto) 70% (31-73) Lymphocytes (%) (Auto) 15% (24-48) Monocytes (%) (Auto) 11% (0-9) Eosinophils (%) (Auto) 2% (0-3) Basophils (%) (Auto) 3% (0-3) Neutrophils # (Auto) 2.4x10^3uL (1.8-7.7) Lymphocytes # (Auto) 0.5x10^3/uL (1.0-4.8) Monocytes # (Auto) 0.4x10^3/uL (0.0-1.1) Eosinophils # (Auto) 0.1x10^3/uL (0.0-0.7) Basophils # (Auto) 0.1x10^3/uL (0.0-0.2) Sodium Level 136mmol/L (136-145) Potassium Level 4.0mmol/L (3.5-5.1) Chloride Level 99mmol/L (98-107) Carbon Dioxide Level 34mmol/L (21-32) Anion Gap 3 (6-14) Blood Urea Nitrogen 9mg/dL (8-26) Creatinine 0.8mg/dL (0.7-1.3) Estimated GFR (Cockcroft-Gault) 91.2 Glucose Level 96mg/dL (70-99) Calcium Level 8.4mg/dL (8.5-10.1) Microbiology 11/15/16 Blood Culture - Preliminary, Resulted NO GROWTH AFTER 2 DAYS Medications Current Medications Ondansetron HCl (Zofran) 4 mg PRN Q8HRS PRN IV NAUSEA/VOMITING Last administered on 11/14/16 22:44; Start 11/14/16 at 22:15; Stop 11/15/16 at 22:14; Status DC Fentanyl Citrate (Fentanyl 2ml Vial) 50 mcg PRN Q2HR PRN IV SEVERE PAIN Last administered on 11/14/16 22:46; Start 11/14/16 at 22:15; Stop 11/15/16 at 22:14; Status DC Acetaminophen (Tylenol) 650 mg PRN Q4HRS PRN PO FEVER; Start 11/14/16 at 22:15; Stop 11/15/16 at 22:14; Status DC Acetaminophen (Tylenol) 650 mg PRN Q6HRS PRN PO FEVER; Start 11/15/16 at 07:00 Albuterol Sulfate (Ventolin Neb Soln) 1 mg PRN Q6HRS PRN NEB SHORTNESS OF BREATH; Start 11/15/16 at 07:00 Carvedilol (Coreg) 3.125 mg BIDWMEALS PO Last administered on 11/17/16 17:44; Start 11/15/16 at 08:00 Citalopram Hydrobromide (Celexa) 20 mg DAILY PO Last administered on 11/17/16 09:09; Start 11/15/16 at 09:00 Fentanyl (Duragesic 75mcg/ Hr Patch) 1 patch Q72H TD Last administered on 11:04; Start 11/15/16 at 07:00; Stop 11/16/16 at 12:10; Status DC Finasteride (Proscar) 5 mg DAILY PO Last administered on 11/17/16 09:11; Start 11/15/16 at 09:00 Furosemide (Lasix) 40 mg DAILY PO Last administered on 11/15/16 11:06; Start at 09:00; Stop 11/16/16 at 17:42; Status DC Acetaminophen/ Hydrocodone Bitart (Lortab 10325) 1 tab PRN Q6HRS PRN PO SEVERE PAIN Last administered on 11/18/16 03:37; Start 11/15/16 at 07:00 Hydroxyurea (Hydrea) 1,000 mg [id number] PO Last administered on 11/17/16 21: 00; Start 11/15/16 at 21:00 Levothyroxine Sodium (Synthroid) 100 mcg DAILYAC PO Last administered on 07:58; Start 11/15/16 at 07:30 Pantoprazole Sodium (Protonix) 40 mg DAILYAC PO Last administered on 11/18/16 07:57; Start 11/15/16 at 07:30 Sennosides (Senna) 8.6 mg BID PO Last administered on 11/17/16 20:54; Start 11/15/16 at 09:00 Trimethoprim/ Sulfamethoxazole (Bactrim Ds) 1 tab BID PO Last administered on 11:30; Start 11/15/16 at 09:00; Stop 11/15/16 at 14:32; Status DC Calcium/Vitamin D (Oscal D 500mg/ 200uts) 1 tab DAILY PO Last administered on 09:10; Start 11/15/16 at 09:00 Multivitamins/ Calcium (Thera M Plus) 1 tab DAILY PO Last administered on 09:11; Start 11/15/16 at 09:00 Hydroxyurea (Hydrea) 1,500 mg QFRIDAY PO ; Start 11/21/16 at 21:00 Enoxaparin Sodium (Lovenox 40mg Syringe) 40 mg Q24H SQ Last administered on 11/16 13:51; Start 11/15/16 at 13:00; Stop 11/16/16 at 19:19; Status DC Albuterol Sulfate 2.5 mg 2.5 mg RTQID NEB Last administered on 11/18/16 07:43 ; Start 11/16/16 at 12:00 Dextrose/Lactated Ringer's (Iv D5%-Lr) 1,000 ml @ 75 mls/hr [id number] IV Last administered on 11/17/16 01:53; Start 11/16/16 at 12:00; Stop 11/17/16 at 17:02; Status DC Furosemide (Lasix) 40 mg DAILY IVP ; Start 11/17/16 at 21:00; Stop 11/17/16 at 21: 00; Status DC Furosemide (Lasix) 40 mg DAILY IVP Last administered on 11/17/16 09:00; Start 11/16/16 at 21:00 Enoxaparin Sodium (Lovenox 100mg Syringe) 90 mg Q12HR SQ Last administered on 22:25; Start 11/16/16 at 21:00; Stop 11/17/16 at 10:23; Status DC Gadobutrol (Gadavist) 7.5 mmol 1X ONCE IV Last administered on 11/17/16 10:52 ; Start 11/17/16 at 10:30; Stop 11/17/16 at 10:32; Status DC Active Scripts Active Bactrim Ds Tablet (Sulfamethoxazole/Trimethoprim) 1 Each Tablet 1 Tab PO BID Reported Senokot (Sennosides) 8.6 Mg Tablet 8.6 Mg PO BID Albuterol Sulfate Neb Soln (Albuterol Sulfate) 2.5 Mg/3 Ml Vial.neb 1 Vial NEB Q6HRS PRN Tylenol (Acetaminophen) 325 Mg Tablet 2 Tab PO Q6HRS PRN FENTANYL 75mcg/hr (Fentanyl) 1 Each Patch.td72 1 Patch TD Q72H Citalopram Hbr (Citalopram Hydrobromide) 20 Mg Tablet 1 Tab PO DAILY Furosemide 40 Mg Tablet 1 Tab PO DAILY Calcium 600 + Vit D 400 Softgl (Calcium Carbonate/Vitamin D3) 1 Each Capsule 600 Each PO DAILY Multi Vitamin Daily (Multivitamin) 1 Each Tablet 1 Each PO Finasteride 5 Mg Tablet 5 Mg PO DAILY Hydrocodone-Apap 10-325 (Hydrocodone Bit/Acetaminophen) 1 Each Tablet 1 Tab PO PRN Q6HRS PRN Hydroxyurea 500 Mg Capsule 1,000 Mg PO HS Pantoprazole Sodium 40 Mg Tablet.dr 40 Mg PO DAILY Carvedilol 3.125 Mg Tablet 3.125 Mg PO BIDWMEALS Levothyroxine Sodium 100 Mcg Tablet 100 Mcg PO DAILYAC Vitals/I & O Vital Sign - Last 24 Hours 11/17/16 11/17/16 11/17/16 11/17/16 09:09 09:10 13:40 14:50 Pulse 85 Resp 18 18 B/P 137/70 Pulse Ox 96 96 96 O2 Delivery Nasal Cannula Nasal Cannula Nasal Cannula O2 Flow Rate 2.0 2.0 2.0 11/17/16 11/17/16 11/17/16 11/17/16 15:00 15:50 17:10 17:44 Temp 98.0 98.0 Pulse 83 83 Resp 20 17 B/P 130/66 130/66 Pulse Ox 96 96 O2 Delivery Nasal Cannula Nasal Cannula O2 Flow Rate 3.0 2.0 11/17/16 11/17/16 11/17/16 11/17/16 19:00 19:10 20:00 20:54 Temp 97.7 97.7 Pulse 85 Resp 18 B/P 111/50 Pulse Ox 98 O2 Delivery Nasal Cannula Nasal Cannula Nasal Cannula Nasal Cannula O2 Flow Rate 3.0 2.0 2.0 2.0 11/17/16 11/18/16 11/18/16 11/18/16 23:00 03:00 03:37 05:34 Temp 97.9 98.4 97.9 98.4 Pulse 79 74 Resp 19 19 B/P 123/63 129/56 Pulse Ox 97 96 O2 Delivery Nasal Cannula Nasal Cannula Nasal Cannula Nasal Cannula O2 Flow Rate 3.0 3.0 3.0 3.0 11/18/16 11/18/16 07:00 07:43 Temp 98.0 98.0 Pulse 70 Resp 18 B/P 118/53 Pulse Ox 98 99 O2 Delivery Nasal Cannula Nasal Cannula O2 Flow Rate 3.0 2.0 Intake and Output 11/17/16 11/17/16 11/18/16 15:00 23:00 07:00 Intake Total 400 ml 150 ml Balance 400 ml 150 ml Savana MORENO MD Nov 18, 2016 09:05
[2016-11-18] MEDS ORDERED: IOHEXOL 180 MG/ML 10 ML VIAL. IJ ONE (09:15)
[2016-11-18] MEDS ORDERED: IOHEXOL 180 MG/ML 20ML VIAL. IJ ONE (09:15)
[2016-11-18] MEDS ORDERED: HYDROMORPHONE 2 MG/ML VIAL. IV ONE (10:00)
[2016-11-18 10:47] VITALS: BP 121/53
[2016-11-18] MEDS: OXYCODONE ER 15 MG TAB.ER.12H. PO SCH ×2 (11:00→21:39)
[2016-11-18 11:20] LABS: ALBUMIN 2.4 g/dL (3.4-5.0); ALBUMIN/GLOBULIN RATIO 0.7 (1.0-1.7); CREATININE 0.8 mg/dL (0.7-1.3); GFR 91.2; POTASSIUM 3.6 mmol/L (3.5-5.1); TOTAL BILIRUBIN 0.8 mg/dL (0.2-1.0); TOTAL PROTEIN 5.8 g/dL (6.4-8.2)
--- NOTE | 2016-11-18 12:02 | PDOC ---
Infectious Disease Note Subjective Subjective c/o severe pain with attempted LP/myelogram no n/v/d/ ROS ROS as above Vital Sign Vital Signs Vital Signs Date Time Temp Pulse Resp B/P Pulse Ox O2 Delivery O2 Flow Rate FiO2 11/18/16 10:47 98.0 74 18 121/53 96 Nasal Cannula 3.0 98.0 Physical Exam PHYSICAL EXAM GENERAL: NAD, Alert HEENT: PERRL, OC/OP NECK: Supple, no JVD, no LN LUNGS: Clear HEART: S1S2, no gallop, no murmur ABD: Soft, NT, no organomegaly, no rebound EXT: No edema, no cyanosis PHARMACEUTICAL OFFICER: Alert, oriented, very weak SKIN: No rash IV: ok Labs Lab Laboratory Tests Test 11/18/16 10:40 Sodium Level 138mmol/L (136-145) Potassium Level 3.6mmol/L (3.5-5.1) Chloride Level 99mmol/L (98-107) Carbon Dioxide Level 33mmol/L (21-32) Anion Gap 6 (6-14) Blood Urea Nitrogen 13mg/dL (8-26) Creatinine 0.8mg/dL (0.7-1.3) Estimated GFR (Cockcroft-Gault) 91.2 BUN/Creatinine Ratio 16 (6-20) Glucose Level 96mg/dL (70-99) Calcium Level 8.0mg/dL (8.5-10.1) Total Bilirubin 0.8mg/dL (0.2-1.0) Aspartate Amino Transf (AST/SGOT) 27U/L (15-37) Alanine Aminotransferase (ALT/SGPT) 24U/L (16-63) Alkaline Phosphatase 76U/L (46-116) Total Protein 5.8g/dL (6.4-8.2) Albumin 2.4g/dL (3.4-5.0) Albumin/Globulin Ratio 0.7 (1.0-1.7) Objective Assessment 1. Loculated subdural fluid collections of lumbar. 2. Fluid collection, left hip. 3. Anemia. 4. Recent fall. 5. MRSA in urine found 11/06. 6. Spinal stenosis status post laminectomy. 7. Coronary artery disease. Plan Plan of Care Await LP & cultures ALFONSO Hernandez MD Nov 18, 2016 12:02
[2016-11-18] MEDS: OXYCODONE/APAP 7.5/325 TABLET. PO PRN ×2 (12:38→22:32)
--- NOTE | 2016-11-18 12:56 | CONS ---
DATE OF CONSULTATION: 11/18/2016 ATTENDING PHYSICIAN: Dr. Kuo. The patient was seen at the request of Dr. Kuo for rehab evaluation. HISTORY OF PRESENT ILLNESS: This is an 86-year-old right-handed male. The patient was admitted to the hospital on 11/14/2016 with worsening back pain since lumbar laminectomy and abnormal MRI scan of the lumbar spine with a concern for spinal fluid leak, elevated sed rate and concern for infection and suspected cauda equina syndrome with urinary incontinence. The patient had lumbar decompression laminectomy for treatment of lumbar spinal stenosis done by Dr. Sapp and he was transferred to [facility] postop, but not recovering as expected with the back and hip pain. The patient is on oral antibiotics for a recent urinary tract infection. PAST MEDICAL HISTORY: Includes coronary artery disease, constipation, GI bleeding, peptic ulcer disease, anemia, osteoarthritis, status post bilateral total knee arthroplasty, right hip nailing, colon resection. He is not known allergic to any medication. The patient lived alone prior to his hospitalization in the fall at this medical center in a [place], [place] home, had no stairs for him to manage and he has been using a walker to get around prior to his admission in fall for lumbar laminectomy. The patient admits severe pain with any movement or even lying down and he went for CT lumbar myelogram, but he could not tolerate that procedure. PHYSICAL EXAMINATION: Today revealed an elderly male. He is awake, oriented to place and follows some commands. He moves all 4 extremities voluntarily where he had generalized muscle weakness, more so in hand intrinsic muscles and also dorsiflexor muscles of his left foot. Deep tendon reflexes are decreased to absent overall. He had equal perception of touch and pinprick sensation bilaterally. He had skin lesions over right heel. He had tenderness to palpation over sacroiliac joint area and bilateral trochanteric bursa, left side more than right side. Straight leg raising test is negative bilaterally. No significant pain on range of motion of both hip, knee and ankle joints. He had crepitus on range of motion of his upper extremity joints. He had muscle atrophy involving hand intrinsic muscles with positive Tinel sign over median nerve at the anterior aspect of both wrists and negative Tinel sign over ulnar nerve at the wrist and elbow. The patient complains of pain with any movement of his lower extremities or with his back even lying down, it is difficult to keep him comfortable. ASSESSMENT: Mobility and self-care limitation in a patient with deconditioned state, postop lumbar decompression laminectomy done in fall of this year with continued lower back pain and hip pain and lumbar radiculitis, also radiological evidence of degenerative disk disease and degenerative joint disease of cervical and upper thoracic and lumbar vertebrae with continued spinal stenosis and questionable leakage from lumbar laminectomy area, dural leak. The patient with degenerative joint disease of both shoulders without any rotator cuff tear, clinical evidence of peripheral neuropathy and also probable associated bilateral carpal tunnel syndrome with neurogenic bowel and bladder and chronic constipation, status post bilateral total knee arthroplasty, right hip nailing for fracture and severe pain even supine in bed and skin lesions both heels and he had significant edema of his feet and legs. RECOMMENDATIONS: Agree with the plan for physical therapy, occupational therapy and speech pathology as he is having significant discomfort to put him on OxyContin for better pain control. I thought of injecting his painful trochanteric bursa and sacroiliac joint, but with questionable infection, I am hesitant to proceed with it at present time. Dr. Kuo, I appreciate asking me to participate in the care of this interesting patient. I will be glad to follow him with you as needed for the rehabilitation. LYN ABBOTT MD DR: NADIYA/kit JOB#: [id number] / [id number]
--- NOTE | 2016-11-18 13:24 | PDOC ---
SUBJECTIVE Subjective Reports bilateral hip pain. Denies radicular pain, numbness or paresthesias. Bilateral lower extremity swelling improved. Was unable to obtain studies in IR today due to pain. OBJECTIVE Vital Signs Vital Signs Date Time Temp Pulse Resp B/P Pulse Ox O2 Delivery O2 Flow Rate FiO2 11/18/16 12:38 22 Nasal Cannula 2.0 11/18/16 11:00 22 Nasal Cannula 2.0 11/18/16 10:47 98.0 74 18 121/53 96 Nasal Cannula 3.0 98.0 11/18/16 10:00 22 Nasal Cannula 2.0 11/18/16 08:00 Nasal Cannula 2.0 11/18/16 08:00 74 121/53 11/18/16 07:43 99 Nasal Cannula 2.0 11/18/16 07:00 98.0 70 18 118/53 98 Nasal Cannula 3.0 98.0 11/18/16 05:34 Nasal Cannula 3.0 11/18/16 03:37 Nasal Cannula 3.0 11/18/16 03:00 98.4 74 19 129/56 96 Nasal Cannula 3.0 98.4 11/17/16 23:00 97.9 79 19 123/63 97 Nasal Cannula 3.0 97.9 11/17/16 20:54 Nasal Cannula 2.0 11/17/16 20:00 Nasal Cannula 2.0 11/17/16 19:10 Nasal Cannula 2.0 11/17/16 19:00 97.7 85 18 111/50 98 Nasal Cannula 3.0 97.7 11/17/16 17:44 83 130/66 11/17/16 17:10 Nasal Cannula 2.0 11/17/16 15:50 17 96 11/17/16 15:00 98.0 83 20 130/66 96 Nasal Cannula 3.0 98.0 11/17/16 14:50 18 96 Nasal Cannula 2.0 11/17/16 13:40 96 Nasal Cannula 2.0 I & O Intake and Output 11/18/16 07:00 Intake Total 550 ml Balance 550 ml Intake Oral 550 ml # Voids 7 PHYSICAL EXAM Physical Exam AA, NAD until moves hips, pain in bilateral hips with range of motion, otherwise strength exam unchanged with good resistance, both hips tender to palpation and pt reports that this is characteristic of his acute pain ASSESSMENT/PLAN Assessment/Plan 86M with abnormal imaging and bilateral hip pain -his primary complaint of hip pain with its present distribution and exam suggests contribution of potential pathology to the hips proper -pain control, physiatry consult noted, studies as able -other notes reviewed, please note that this patient has not had any recent lumbar surgery so his presentation is not an acute post-surgical event - surgery was decades ago at by another surgeon Problems: COMMENT Lab Laboratory Tests Test 11/18/16 10:40 Sodium Level 138mmol/L (136-145) Potassium Level 3.6mmol/L (3.5-5.1) Chloride Level 99mmol/L (98-107) Carbon Dioxide Level 33mmol/L (21-32) Anion Gap 6 (6-14) Blood Urea Nitrogen 13mg/dL (8-26) Creatinine 0.8mg/dL (0.7-1.3) Estimated GFR (Cockcroft-Gault) 91.2 BUN/Creatinine Ratio 16 (6-20) Glucose Level 96mg/dL (70-99) Calcium Level 8.0mg/dL (8.5-10.1) Total Bilirubin 0.8mg/dL (0.2-1.0) Aspartate Amino Transf (AST/SGOT) 27U/L (15-37) Alanine Aminotransferase (ALT/SGPT) 24U/L (16-63) Alkaline Phosphatase 76U/L (46-116) Total Protein 5.8g/dL (6.4-8.2) Albumin 2.4g/dL (3.4-5.0) Albumin/Globulin Ratio 0.7 (1.0-1.7) ARIANNA WILKERSON MD Nov 18, 2016 13:24
[2016-11-18] MEDS: HYDROMORPHONE 2 MG/ML VIAL. IVP PRN ×2 (14:05→23:37)
[2016-11-18 14:55] VITALS: BP 123/52
[2016-11-18 19:00] VITALS: BP 130/58
[2016-11-18] MEDS: HYDROXYUREA 500 MG CAPSULE PO SCH (21:36)
[2016-11-18 23:13] VITALS: BP 128/74
[2016-11-19] MEDS: OXYCODONE/APAP 7.5/325 TABLET. PO PRN ×3 (06:39→23:25)
[2016-11-19 07:00] VITALS: BP 109/47
[2016-11-19] MEDS: HYDROMORPHONE 2 MG/ML VIAL. IVP PRN ×5 (07:53→23:25)
[2016-11-19] MEDS: FUROSEMIDE 40 MG/4 ML VIAL IVP SCH (07:56)
[2016-11-19] MEDS: FINASTERIDE 5 MG TABLET PO SCH (07:57)
[2016-11-19] MEDS: PANTOPRAZOLE 40 MG TABLET. PO SCH (07:57)
[2016-11-19] MEDS: LEVOTHYROXINE 100 MCG TABLET PO SCH (07:57)
[2016-11-19] MEDS: OXYCODONE ER 15 MG TAB.ER.12H. PO SCH (07:57)
[2016-11-19] MEDS: CARVEDILOL 3.125 MG TABLET PO SCH ×2 (07:58→17:05)
[2016-11-19] MEDS: MULTIVITAMIN with MINERAL TABLET. PO SCH (07:58)
[2016-11-19] MEDS: SENNOSIDES 8.6 MG TABLET PO SCH ×2 (07:58→20:52)
[2016-11-19] MEDS: CALCIUM CARB/VIT D3 500/200 TABLET PO SCH (07:58)
[2016-11-19] MEDS: CITALOPRAM 20 MG TABLET. PO SCH (07:58)
[2016-11-19] MEDS: ALBUTEROL SULFATE 2.5 MG/3 ML NEBU. NEB SCH ×4 (08:20→20:27)
[2016-11-19 08:54] LABS: BASO % 1 % (0-3); EOS % 1 % (0-3); HEMATOCRIT 26.9 % (39.0-53.0); HEMOGLOBIN 8.6 g/dL (13.0-17.5); LYMPH # 0.5 x10^3/uL (1.0-4.8); LYMPH % 25 % (24-48); MEAN CORPUSCULAR HEMOGLOBIN 38 pg (25-35); MEAN CORPUSCULAR HGB CONC 32 g/dL (31-37); MEAN CORPUSCULAR VOLUME 119 fL (79-100); MONO % 9 % (0-9); NEUT % 63 % (31-73); PLATELET COUNT 496 x10^3/uL (140-400); RED BLOOD COUNT 2.26 x10^6/uL (4.30-5.70); RED CELL DISTRIBUTION WIDTH 30.2 % (11.5-14.5)
--- NOTE | 2016-11-19 09:57 | PDOC ---
PROGRESS NOTES Subjective Subjective He continues with severe low back and hip area pain but with oxycontin he rates his pain while supine at 8 and not asking for much breakthrough pain medicine. Objective Objective Vital Signs Date Time Temp Pulse Resp B/P Pulse Ox O2 Delivery O2 Flow Rate FiO2 11/19/16 08:23 20 96 Nasal Cannula 2.0 11/19/16 07:58 82 128/74 11/19/16 07:00 97.5 97.5 Intake and Output 11/19/16 07:00 Intake Total 450 ml Balance 450 ml Intake Oral 450 ml # Voids 6 Physical Exam Physical Exam He is alert,and ate some breakfast this AM and he refused to roll to his side and even try abdominal binder as lumbar corset to support his back.I spoke to his sons at bedside. Assessment Assessment Problems Medical Problems: (1) Lumbar back pain Status: Acute Plan Plan of Care He could not tolerate ct myelogram and I doubt he can tolerate bone scan.His WBC count is 2000 and he is anemic and I think most of his pain is in sacroiliac joint area and I am thinking about injecting that area to help ease his pain if we can rule out any obvious infection. He is not in a position to be transferred to SNF or home with home health until his pain is better controlled. Comment Review of Relevant I have reviewed the following items michael (where applicable) has been applied. Labs Laboratory Tests Test 11/17/16 11:10 11/18/16 10:40 11/19/16 08:33 White Blood Count 3.4x10^3/uL (4.0-11.0) 2.0x10^3/uL (4.0-11.0) Red Blood Count 2.28x10^6/uL (4.30-5.70) 2.26x10^6/uL (4.30-5.70) Hemoglobin 8.6g/dL (13.0-17.5) 8.6g/dL (13.0-17.5) Hematocrit 26.7% (39.0-53.0) 26.9% (39.0-53.0) Mean Corpuscular Volume 117fL (79-100) 119fL (79-100) Mean Corpuscular Hemoglobin 38pg (25-35) 38pg (25-35) Mean Corpuscular Hemoglobin Concent 32g/dL (31-37) 32g/dL (31-37) Red Cell Distribution Width 31.0% (11.5-14.5) 30.2% (11.5-14.5) Platelet Count 509x10^3/uL (140-400) 496x10^3/uL (140-400) Neutrophils (%) (Auto) 70% (31-73) 63% (31-73) Lymphocytes (%) (Auto) 15% (24-48) 25% (24-48) Monocytes (%) (Auto) 11% (0-9) 9% (0-9) Eosinophils (%) (Auto) 2% (0-3) 1% (0-3) Basophils (%) (Auto) 3% (0-3) 1% (0-3) Neutrophils # (Auto) 2.4x10^3uL (1.8-7.7) 1.3x10^3uL (1.8-7.7) Lymphocytes # (Auto) 0.5x10^3/uL (1.0-4.8) 0.5x10^3/uL (1.0-4.8) Monocytes # (Auto) 0.4x10^3/uL (0.0-1.1) 0.2x10^3/uL (0.0-1.1) Eosinophils # (Auto) 0.1x10^3/uL (0.0-0.7) 0.0x10^3/uL (0.0-0.7) Basophils # (Auto) 0.1x10^3/uL (0.0-0.2) 0.0x10^3/uL (0.0-0.2) Sodium Level 136mmol/L (136-145) 138mmol/L (136-145) Potassium Level 4.0mmol/L (3.5-5.1) 3.6mmol/L (3.5-5.1) Chloride Level 99mmol/L (98-107) 99mmol/L (98-107) Carbon Dioxide Level 34mmol/L (21-32) 33mmol/L (21-32) Anion Gap 3 (6-14) 6 (6-14) Blood Urea Nitrogen 9mg/dL (8-26) 13mg/dL (8-26) Creatinine 0.8mg/dL (0.7-1.3) 0.8mg/dL (0.7-1.3) Estimated GFR (Cockcroft-Gault) 91.2 91.2 Glucose Level 96mg/dL (70-99) 96mg/dL (70-99) Calcium Level 8.4mg/dL (8.5-10.1) 8.0mg/dL (8.5-10.1) Vitamin B12 Level 845pg/mL (211-946) BUN/Creatinine Ratio 16 (6-20) Total Bilirubin 0.8mg/dL (0.2-1.0) Aspartate Amino Transf (AST/SGOT) 27U/L (15-37) Alanine Aminotransferase (ALT/SGPT) 24U/L (16-63) Alkaline Phosphatase 76U/L (46-116) Total Protein 5.8g/dL (6.4-8.2) Albumin 2.4g/dL (3.4-5.0) Albumin/Globulin Ratio 0.7 (1.0-1.7) Laboratory Tests Test 11/18/16 10:40 11/19/16 08:33 Sodium Level 138mmol/L (136-145) Potassium Level 3.6mmol/L (3.5-5.1) Chloride Level 99mmol/L (98-107) Carbon Dioxide Level 33mmol/L (21-32) Anion Gap 6 (6-14) Blood Urea Nitrogen 13mg/dL (8-26) Creatinine 0.8mg/dL (0.7-1.3) Estimated GFR (Cockcroft-Gault) 91.2 BUN/Creatinine Ratio 16 (6-20) Glucose Level 96mg/dL (70-99) Calcium Level 8.0mg/dL (8.5-10.1) Total Bilirubin 0.8mg/dL (0.2-1.0) Aspartate Amino Transf (AST/SGOT) 27U/L (15-37) Alanine Aminotransferase (ALT/SGPT) 24U/L (16-63) Alkaline Phosphatase 76U/L (46-116) Total Protein 5.8g/dL (6.4-8.2) Albumin 2.4g/dL (3.4-5.0) Albumin/Globulin Ratio 0.7 (1.0-1.7) White Blood Count 2.0x10^3/uL (4.0-11.0) Red Blood Count 2.26x10^6/uL (4.30-5.70) Hemoglobin 8.6g/dL (13.0-17.5) Hematocrit 26.9% (39.0-53.0) Mean Corpuscular Volume 119fL (79-100) Mean Corpuscular Hemoglobin 38pg (25-35) Mean Corpuscular Hemoglobin Concent 32g/dL (31-37) Red Cell Distribution Width 30.2% (11.5-14.5) Platelet Count 496x10^3/uL (140-400) Neutrophils (%) (Auto) 63% (31-73) Lymphocytes (%) (Auto) 25% (24-48) Monocytes (%) (Auto) 9% (0-9) Eosinophils (%) (Auto) 1% (0-3) Basophils (%) (Auto) 1% (0-3) Neutrophils # (Auto) 1.3x10^3uL (1.8-7.7) Lymphocytes # (Auto) 0.5x10^3/uL (1.0-4.8) Monocytes # (Auto) 0.2x10^3/uL (0.0-1.1) Eosinophils # (Auto) 0.0x10^3/uL (0.0-0.7) Basophils # (Auto) 0.0x10^3/uL (0.0-0.2) Microbiology 11/15/16 Blood Culture - Preliminary, Resulted NO GROWTH AFTER 3 DAYS Medications Current Medications Ondansetron HCl (Zofran) 4 mg PRN Q8HRS PRN IV NAUSEA/VOMITING Last administered on 11/14/16 22:44; Start 11/14/16 at 22:15; Stop 11/15/16 at 22:14; Status DC Fentanyl Citrate (Fentanyl 2ml Vial) 50 mcg PRN Q2HR PRN IV SEVERE PAIN Last administered on 11/14/16 22:46; Start 11/14/16 at 22:15; Stop 11/15/16 at 22:14; Status DC Acetaminophen (Tylenol) 650 mg PRN Q4HRS PRN PO FEVER; Start 11/14/16 at 22:15; Stop 11/15/16 at 22:14; Status DC Acetaminophen (Tylenol) 650 mg PRN Q6HRS PRN PO FEVER; Start 11/15/16 at 07:00 Albuterol Sulfate (Ventolin Neb Soln) 1 mg PRN Q6HRS PRN NEB SHORTNESS OF BREATH; Start 11/15/16 at 07:00 Carvedilol (Coreg) 3.125 mg BIDWMEALS PO Last administered on 11/19/16 07:58; Start 11/15/16 at 08:00 Citalopram Hydrobromide (Celexa) 20 mg DAILY PO Last administered on 11/19/16 07:58; Start 11/15/16 at 09:00 Fentanyl (Duragesic 75mcg/ Hr Patch) 1 patch Q72H TD Last administered on 11:04; Start 11/15/16 at 07:00; Stop 11/16/16 at 12:10; Status DC Finasteride (Proscar) 5 mg DAILY PO Last administered on 11/19/16 07:57; Start 11/15/16 at 09:00 Furosemide (Lasix) 40 mg DAILY PO Last administered on 11/15/16 11:06; Start at 09:00; Stop 11/16/16 at 17:42; Status DC Acetaminophen/ Hydrocodone Bitart (Lortab 10/325) 1 tab PRN Q6HRS PRN PO SEVERE PAIN Last administered on 11/18/16 03:37; Start 11/15/16 at 07:00; Stop 11/18/16 at 08:46; Status DC Hydroxyurea (Hydrea) 1,000 mg [id number] PO Last administered on 11/18/16 21 :36; Start 11/15/16 at 21:00 Levothyroxine Sodium (Synthroid) 100 mcg DAILYAC PO Last administered on 07:57; Start 11/15/16 at 07:30 Pantoprazole Sodium (Protonix) 40 mg DAILYAC PO Last administered on 11/19/16 07:57; Start 11/15/16 at 07:30 Sennosides (Senna) 8.6 mg BID PO Last administered on 11/19/16 07:58; Start at 09:00 Trimethoprim/ Sulfamethoxazole (Bactrim Ds) 1 tab BID PO Last administered on 11:30; Start 11/15/16 at 09:00; Stop 11/15/16 at 14:32; Status DC Calcium/Vitamin D (Oscal D 500mg/ 200uts) 1 tab DAILY PO Last administered on 07:58; Start 11/15/16 at 09:00 Multivitamins/ Calcium (Thera M Plus) 1 tab DAILY PO Last administered on 07:58; Start 11/15/16 at 09:00 Hydroxyurea (Hydrea) 1,500 mg QFRIDAY PO ; Start 11/21/16 at 21:00 Enoxaparin Sodium (Lovenox 40mg Syringe) 40 mg Q24H SQ Last administered on 11/16 13:51; Start 11/15/16 at 13:00; Stop 11/16/16 at 19:19; Status DC Albuterol Sulfate 2.5 mg 2.5 mg RTQID NEB Last administered on 11/19/16 08:20 ; Start 11/16/16 at 12:00 Dextrose/Lactated Ringer's (Iv D5%-Lr) 1,000 ml @ 75 mls/hr [id number] IV Last administered on 11/17/16 01:53; Start 11/16/16 at 12:00; Stop 11/17/16 at 17:02; Status DC Furosemide (Lasix) 40 mg DAILY IVP ; Start 11/17/16 at 21:00; Stop 11/17/16 at 21: 00; Status DC Furosemide (Lasix) 40 mg DAILY IVP Last administered on 11/19/16 07:56; Start 11/16/16 at 21:00 Enoxaparin Sodium (Lovenox 100mg Syringe) 90 mg Q12HR SQ Last administered on 22:25; Start 11/16/16 at 21:00; Stop 11/17/16 at 10:23; Status DC Gadobutrol (Gadavist) 7.5 mmol 1X ONCE IV Last administered on 11/17/16 10:52 ; Start 11/17/16 at 10:30; Stop 11/17/16 at 10:32; Status DC Oxycodone/ Acetaminophen (Percocet 7.5/ 325) 1 tab PRN Q6HRS PRN PO PAIN Last administered on 11/19/16 06:39; Start 11/18/16 at 08:45 Iohexol (Omnipaque 180 Mg/ml) 10 ml 1X ONCE IJ ; Start 11/18/16 at 09:15; Stop 11/18/16 at 09:16; Status DC Iohexol (Omnipaque 180 Mg/ml) 20 ml 1X ONCE IJ ; Start 11/18/16 at 09:15; Stop 11/18/16 at 09:16; Status DC Hydromorphone HCl (Dilaudid) 0.5 mg 1X ONCE IV Last administered on 11/18/16 10:00; Start 11/18/16 at 10:00; Stop 11/18/16 at 10:01; Status DC Oxycodone HCl (Oxycontin) 15 mg Q12HR PO Last administered on 11/19/16 07:57; Start 11/18/16 at 11:00 Hydromorphone HCl (Dilaudid) 0.4 mg PRN Q4HRS PRN IVP PAIN Last administered on 11/19/16 07:53; Start 11/18/16 at 10:15 Active Scripts Active Bactrim Ds Tablet (Sulfamethoxazole/Trimethoprim) 1 Each Tablet 1 Tab PO BID Reported Senokot (Sennosides) 8.6 Mg Tablet 8.6 Mg PO BID Albuterol Sulfate Neb Soln (Albuterol Sulfate) 2.5 Mg/3 Ml Vial.neb 1 Vial NEB Q6HRS PRN Tylenol (Acetaminophen) 325 Mg Tablet 2 Tab PO Q6HRS PRN FENTANYL 75mcg/hr (Fentanyl) 1 Each Patch.td72 1 Patch TD Q72H Citalopram Hbr (Citalopram Hydrobromide) 20 Mg Tablet 1 Tab PO DAILY Furosemide 40 Mg Tablet 1 Tab PO DAILY Calcium 600 + Vit D 400 Softgl (Calcium Carbonate/Vitamin D3) 1 Each Capsule 600 Each PO DAILY Multi Vitamin Daily (Multivitamin) 1 Each Tablet 1 Each PO Finasteride 5 Mg Tablet 5 Mg PO DAILY Hydrocodone-Apap 10-325 (Hydrocodone Bit/Acetaminophen) 1 Each Tablet 1 Tab PO PRN Q6HRS PRN Hydroxyurea 500 Mg Capsule 1,000 Mg PO HS Pantoprazole Sodium 40 Mg Tablet.dr 40 Mg PO DAILY Carvedilol 3.125 Mg Tablet 3.125 Mg PO BIDWMEALS Levothyroxine Sodium 100 Mcg Tablet 100 Mcg PO DAILYAC Vitals/I & O Vital Sign - Last 24 Hours 11/18/16 11/18/16 11/18/16 11/18/16 10:00 10:30 10:47 11:00 Temp 98.0 98.0 Pulse 74 Resp 22 20 18 22 B/P 121/53 Pulse Ox 97 96 O2 Delivery Nasal Cannula Nasal Cannula Nasal Cannula Nasal Cannula O2 Flow Rate 2.0 2.0 3.0 2.0 11/18/16 11/18/16 11/18/16 11/18/16 12:38 14:05 14:55 15:00 Temp 97.8 97.8 Pulse 72 Resp 22 20 18 B/P 123/52 Pulse Ox 96 98 O2 Delivery Nasal Cannula Nasal Cannula Nasal Cannula Nasal Cannula O2 Flow Rate 2.0 2.0 3.0 11/18/16 11/18/16 11/18/16 11/18/16 19:00 20:00 20:12 21:39 Temp 97.5 97.5 Pulse 68 Resp 18 20 B/P 130/58 Pulse Ox 98 97 96 O2 Delivery Nasal Cannula Nasal Cannula Nasal Cannula Room Air O2 Flow Rate 3.0 2.0 2.0 2.0 11/18/16 11/18/16 11/18/16 11/19/16 22:32 23:13 23:37 01:39 Temp 97.9 97.9 Pulse 82 Resp 20 21 20 20 B/P 128/74 Pulse Ox 97 96 96 O2 Delivery Nasal Cannula Nasal Cannula Nasal Cannula O2 Flow Rate 2.0 3.0 2.0 2.0 11/19/16 11/19/16 11/19/16 11/19/16 06:39 07:00 07:39 07:53 Temp 97.5 97.5 Pulse 71 Resp 20 18 20 20 B/P 109/47 Pulse Ox 97 96 96 O2 Delivery Nasal Cannula Nasal Cannula Nasal Cannula Nasal Cannula O2 Flow Rate 2.0 3.0 2.0 2.0 11/19/16 11/19/16 11/19/16 11/19/16 07:57 07:58 08:00 08:20 Pulse 82 Resp 20 B/P 128/74 Pulse Ox 96 96 O2 Delivery Nasal Cannula Nasal Cannula Nasal Cannula O2 Flow Rate 2.0 2.0 2.0 11/19/16 08:23 Resp 20 Pulse Ox 96 O2 Delivery Nasal Cannula O2 Flow Rate 2.0 Intake and Output 11/18/16 11/18/16 11/19/16 15:00 23:00 07:00 Intake Total 200 ml 250 ml Balance 200 ml 250 ml LYN ABBOTT MD Nov 19, 2016 09:57
[2016-11-19 11:00] VITALS: BP 129/63
--- NOTE | 2016-11-19 11:26 | PDOC ---
SUBJECTIVE Subjective Bilateral hip pain. Denies other changes. Denies chills, headache, chest pain. OBJECTIVE Vital Signs Vital Signs Date Time Temp Pulse Resp B/P Pulse Ox O2 Delivery O2 Flow Rate FiO2 11/19/16 08:23 20 96 Nasal Cannula 2.0 11/19/16 08:20 96 Nasal Cannula 2.0 11/19/16 08:00 Nasal Cannula 2.0 11/19/16 07:58 82 128/74 11/19/16 07:57 20 96 Nasal Cannula 2.0 11/19/16 07:53 20 96 Nasal Cannula 2.0 11/19/16 07:39 20 96 Nasal Cannula 2.0 11/19/16 07:00 97.5 71 18 109/47 97 Nasal Cannula 3.0 97.5 11/19/16 06:39 20 Nasal Cannula 2.0 11/19/16 01:39 20 96 2.0 11/18/16 23:37 20 96 Nasal Cannula 2.0 11/18/16 23:13 97.9 82 21 128/74 97 Nasal Cannula 3.0 97.9 11/18/16 22:32 20 Nasal Cannula 2.0 11/18/16 21:39 20 96 Room Air 2.0 11/18/16 20:12 97 Nasal Cannula 2.0 11/18/16 20:00 Nasal Cannula 2.0 11/18/16 19:00 97.5 68 18 130/58 98 Nasal Cannula 3.0 97.5 11/18/16 15:00 Nasal Cannula 11/18/16 14:55 97.8 72 18 123/52 98 Nasal Cannula 3.0 97.8 11/18/16 14:05 20 96 Nasal Cannula 2.0 11/18/16 12:38 22 Nasal Cannula 2.0 I & O Intake and Output 11/19/16 07:00 Intake Total 450 ml Balance 450 ml Intake Oral 450 ml # Voids 6 PHYSICAL EXAM Physical Exam AA, NAD except with ROM hips, strength stable resistance, sensation intact LT, edema continues to be improved in feet, hips TTP ASSESSMENT/PLAN Assessment/Plan 86M with hip pain, abnormal studies -unable to obtain myelogram or CSF acquisition due to pain -discussed overall utility of such studies with ID -order for bone scan noted -may benefit from hip injections if clear to do so Problems: COMMENT Lab Laboratory Tests Test 11/19/16 08:33 White Blood Count 2.0x10^3/uL (4.0-11.0) Red Blood Count 2.26x10^6/uL (4.30-5.70) Hemoglobin 8.6g/dL (13.0-17.5) Hematocrit 26.9% (39.0-53.0) Mean Corpuscular Volume 119fL (79-100) Mean Corpuscular Hemoglobin 38pg (25-35) Mean Corpuscular Hemoglobin Concent 32g/dL (31-37) Red Cell Distribution Width 30.2% (11.5-14.5) Platelet Count 496x10^3/uL (140-400) Neutrophils (%) (Auto) 63% (31-73) Lymphocytes (%) (Auto) 25% (24-48) Monocytes (%) (Auto) 9% (0-9) Eosinophils (%) (Auto) 1% (0-3) Basophils (%) (Auto) 1% (0-3) Neutrophils # (Auto) 1.3x10^3uL (1.8-7.7) Lymphocytes # (Auto) 0.5x10^3/uL (1.0-4.8) Monocytes # (Auto) 0.2x10^3/uL (0.0-1.1) Eosinophils # (Auto) 0.0x10^3/uL (0.0-0.7) Basophils # (Auto) 0.0x10^3/uL (0.0-0.2) ARIANNA WILKERSON MD Nov 19, 2016 11:26
--- NOTE | 2016-11-19 14:45 | PDOC ---
PROGRESS NOTES Subjective Subjective His pain was too severe to tolerate LP yesterday, vitamin B12 came back normal, Dr. North was consulted to assist with care and help manage pain, considering injection but ordered a bone scan first and is hopeful pain can be controlled so he . Family now considering hospice, they are not interested in him going back to [facility]. He is now retaining urine and had 1400 cc of urine in his bladder and dove placed. He was on antibiotics for MRSA UTI at time of admission but they have been stopped earlier in hospital course by ID. He ate breakfast this am with aide feeding him but overall intake is not great. His oxycodone dose has been increased but he has not yet received the higher dose, he is staying alert on current pain meds and max pain has been an 8 but that was with movement, his pain is controlled when not moving Objective Objective Vital Signs Date Time Temp Pulse Resp B/P Pulse Ox O2 Delivery O2 Flow Rate FiO2 11/19/16 13:31 20 96 Nasal Cannula 2.0 11/19/16 11:00 97.5 70 129/63 97.5 Intake and Output 11/19/16 07:00 Intake Total 450 ml Balance 450 ml Intake Oral 450 ml # Voids 6 Physical Exam Abdomen: Normal bowel sounds, Soft, Other (dove in place with 1500 cc of dark yellow urine) General: Alert, Oriented X3, Cooperative, mild distress HEENT: Atraumatic, EOMI, Other (mouth still dry) Lungs: Clear to auscultation MUSCULOSKELETAL: Other (pain in legs with mivement, can wiggle toes and move fet, moving left leg causes left hip pain) Neck: Supple, No JVD Neuro: Other (non focal) Psych/Mental Status: Mental status NL Skin: Other (small heel ulcer to be evaluated again by wound care team tomorrow ) Assessment Assessment Problems Medical Problems: (1) Lumbar back pain with subdural lumbar fluid collection, limiting mobility, family considering hospice if pain control and improved functional status cannot be achieved, initial fall 08/2016 precipitant cause (2) left hip pain - limiting mobility, Dr. North to inject pending bone scan (3) urinary retention with hx of BPH -new condition, now requiring Dove, recheck UA (4) recent UTI, MRSA - treated with Bactrim (5) moderately severe protein malnutrition - with pleural fluid and anasarca, will add Procalamine, encourage Boost tid and assist with feeding (6) aortic stenosis/ CAD - stable (7) heel pressure ulcer - wound care following, will re-evaluate tomorrow (8) anemia - chronic, stable after transfusion of 1 unit pRBC (9) atelectasis/COPD - continue neb tx (10) encephalopathy - resolved, was due to pain meds and anemia (11) supeficial thrombus left leg with elevated D-dimer, lovenox currently on hold for procedures Status: Acute Plan Plan of Care as above Comment Review of Relevant I have reviewed the following items michael (where applicable) has been applied. Labs Laboratory Tests Test 11/18/16 10:40 11/19/16 08:33 Sodium Level 138mmol/L (136-145) Potassium Level 3.6mmol/L (3.5-5.1) Chloride Level 99mmol/L (98-107) Carbon Dioxide Level 33mmol/L (21-32) Anion Gap 6 (6-14) Blood Urea Nitrogen 13mg/dL (8-26) Creatinine 0.8mg/dL (0.7-1.3) Estimated GFR (Cockcroft-Gault) 91.2 BUN/Creatinine Ratio 16 (6-20) Glucose Level 96mg/dL (70-99) Calcium Level 8.0mg/dL (8.5-10.1) Total Bilirubin 0.8mg/dL (0.2-1.0) Aspartate Amino Transf (AST/SGOT) 27U/L (15-37) Alanine Aminotransferase (ALT/SGPT) 24U/L (16-63) Alkaline Phosphatase 76U/L (46-116) Total Protein 5.8g/dL (6.4-8.2) Albumin 2.4g/dL (3.4-5.0) Albumin/Globulin Ratio 0.7 (1.0-1.7) White Blood Count 2.0x10^3/uL (4.0-11.0) Red Blood Count 2.26x10^6/uL (4.30-5.70) Hemoglobin 8.6g/dL (13.0-17.5) Hematocrit 26.9% (39.0-53.0) Mean Corpuscular Volume 119fL (79-100) Mean Corpuscular Hemoglobin 38pg (25-35) Mean Corpuscular Hemoglobin Concent 32g/dL (31-37) Red Cell Distribution Width 30.2% (11.5-14.5) Platelet Count 496x10^3/uL (140-400) Neutrophils (%) (Auto) 63% (31-73) Lymphocytes (%) (Auto) 25% (24-48) Monocytes (%) (Auto) 9% (0-9) Eosinophils (%) (Auto) 1% (0-3) Basophils (%) (Auto) 1% (0-3) Neutrophils # (Auto) 1.3x10^3uL (1.8-7.7) Lymphocytes # (Auto) 0.5x10^3/uL (1.0-4.8) Monocytes # (Auto) 0.2x10^3/uL (0.0-1.1) Eosinophils # (Auto) 0.0x10^3/uL (0.0-0.7) Basophils # (Auto) 0.0x10^3/uL (0.0-0.2) Laboratory Tests Test 11/19/16 08:33 White Blood Count 2.0x10^3/uL (4.0-11.0) Red Blood Count 2.26x10^6/uL (4.30-5.70) Hemoglobin 8.6g/dL (13.0-17.5) Hematocrit 26.9% (39.0-53.0) Mean Corpuscular Volume 119fL (79-100) Mean Corpuscular Hemoglobin 38pg (25-35) Mean Corpuscular Hemoglobin Concent 32g/dL (31-37) Red Cell Distribution Width 30.2% (11.5-14.5) Platelet Count 496x10^3/uL (140-400) Neutrophils (%) (Auto) 63% (31-73) Lymphocytes (%) (Auto) 25% (24-48) Monocytes (%) (Auto) 9% (0-9) Eosinophils (%) (Auto) 1% (0-3) Basophils (%) (Auto) 1% (0-3) Neutrophils # (Auto) 1.3x10^3uL (1.8-7.7) Lymphocytes # (Auto) 0.5x10^3/uL (1.0-4.8) Monocytes # (Auto) 0.2x10^3/uL (0.0-1.1) Eosinophils # (Auto) 0.0x10^3/uL (0.0-0.7) Basophils # (Auto) 0.0x10^3/uL (0.0-0.2) Microbiology 11/15/16 Blood Culture - Preliminary, Resulted NO GROWTH AFTER 3 DAYS Medications Current Medications Ondansetron HCl (Zofran) 4 mg PRN Q8HRS PRN IV NAUSEA/VOMITING Last administered on 11/14/16 22:44; Start 11/14/16 at 22:15; Stop 11/15/16 at 22:14; Status DC Fentanyl Citrate (Fentanyl 2ml Vial) 50 mcg PRN Q2HR PRN IV SEVERE PAIN Last administered on 11/14/16 22:46; Start 11/14/16 at 22:15; Stop 11/15/16 at 22:14; Status DC Acetaminophen (Tylenol) 650 mg PRN Q4HRS PRN PO FEVER; Start 11/14/16 at 22:15; Stop 11/15/16 at 22:14; Status DC Acetaminophen (Tylenol) 650 mg PRN Q6HRS PRN PO FEVER; Start 11/15/16 at 07:00 Albuterol Sulfate (Ventolin Neb Soln) 1 mg PRN Q6HRS PRN NEB SHORTNESS OF BREATH; Start 11/15/16 at 07:00 Carvedilol (Coreg) 3.125 mg BIDWMEALS PO Last administered on 11/19/16 07:58; Start 11/15/16 at 08:00 Citalopram Hydrobromide (Celexa) 20 mg DAILY PO Last administered on 11/19/16 07:58; Start 11/15/16 at 09:00 Fentanyl (Duragesic 75mcg/ Hr Patch) 1 patch Q72H TD Last administered on 11:04; Start 11/15/16 at 07:00; Stop 11/16/16 at 12:10; Status DC Finasteride (Proscar) 5 mg DAILY PO Last administered on 11/19/16 07:57; Start 11/15/16 at 09:00 Furosemide (Lasix) 40 mg DAILY PO Last administered on 11/15/16 11:06; Start at 09:00; Stop 11/16/16 at 17:42; Status DC Acetaminophen/ Hydrocodone Bitart (Lortab 10/325) 1 tab PRN Q6HRS PRN PO SEVERE PAIN Last administered on 11/18/16 03:37; Start 11/15/16 at 07:00; Stop 11/18/16 at 08:46; Status DC Hydroxyurea (Hydrea) 1,000 mg [id number] PO Last administered on 11/18/16 21 :36; Start 11/15/16 at 21:00 Levothyroxine Sodium (Synthroid) 100 mcg DAILYAC PO Last administered on 07:57; Start 11/15/16 at 07:30 Pantoprazole Sodium (Protonix) 40 mg DAILYAC PO Last administered on 11/19/16 07:57; Start 11/15/16 at 07:30 Sennosides (Senna) 8.6 mg BID PO Last administered on 11/19/16 07:58; Start at 09:00 Trimethoprim/ Sulfamethoxazole (Bactrim Ds) 1 tab BID PO Last administered on 11:30; Start 11/15/16 at 09:00; Stop 11/15/16 at 14:32; Status DC Calcium/Vitamin D (Oscal D 500mg/ 200uts) 1 tab DAILY PO Last administered on 07:58; Start 11/15/16 at 09:00 Multivitamins/ Calcium (Thera M Plus) 1 tab DAILY PO Last administered on 07:58; Start 11/15/16 at 09:00 Hydroxyurea (Hydrea) 1,500 mg QFRIDAY PO ; Start 11/21/16 at 21:00 Enoxaparin Sodium (Lovenox 40mg Syringe) 40 mg Q24H SQ Last administered on 11/16 13:51; Start 11/15/16 at 13:00; Stop 11/16/16 at 19:19; Status DC Albuterol Sulfate 2.5 mg 2.5 mg RTQID NEB Last administered on 11/19/16 11:44 ; Start 11/16/16 at 12:00 Dextrose/Lactated Ringer's (Iv D5%-Lr) 1,000 ml @ 75 mls/hr [id number] IV Last administered on 11/17/16 01:53; Start 11/16/16 at 12:00; Stop 11/17/16 at 17:02; Status DC Furosemide (Lasix) 40 mg DAILY IVP ; Start 11/17/16 at 21:00; Stop 11/17/16 at 21: 00; Status DC Furosemide (Lasix) 40 mg DAILY IVP Last administered on 11/19/16 07:56; Start 11/16/16 at 21:00 Enoxaparin Sodium (Lovenox 100mg Syringe) 90 mg Q12HR SQ Last administered on 22:25; Start 11/16/16 at 21:00; Stop 11/17/16 at 10:23; Status DC Gadobutrol (Gadavist) 7.5 mmol 1X ONCE IV Last administered on 11/17/16 10:52 ; Start 11/17/16 at 10:30; Stop 11/17/16 at 10:32; Status DC Oxycodone/ Acetaminophen (Percocet 7.5/ 325) 1 tab PRN Q6HRS PRN PO PAIN Last administered on 11/19/16 13:31; Start 11/18/16 at 08:45 Iohexol (Omnipaque 180 Mg/ml) 10 ml 1X ONCE IJ ; Start 11/18/16 at 09:15; Stop 11/18/16 at 09:16; Status DC Iohexol (Omnipaque 180 Mg/ml) 20 ml 1X ONCE IJ ; Start 11/18/16 at 09:15; Stop 11/18/16 at 09:16; Status DC Hydromorphone HCl (Dilaudid) 0.5 mg 1X ONCE IV Last administered on 11/18/16 10:00; Start 11/18/16 at 10:00; Stop 11/18/16 at 10:01; Status DC Oxycodone HCl (Oxycontin) 15 mg Q12HR PO Last administered on 11/19/16 07:57; Start 11/18/16 at 11:00; Stop 11/19/16 at 09:45; Status DC Hydromorphone HCl (Dilaudid) 0.4 mg PRN Q4HRS PRN IVP PAIN Last administered on 11/19/16t 13:31; Start 11/18/16 at 10:15 Oxycodone HCl (Oxycontin) 20 mg Q12HR PO ; Start 11/19/16 at 21:00 Active Scripts Active Bactrim Ds Tablet (Sulfamethoxazole/Trimethoprim) 1 Each Tablet 1 Tab PO BID Reported Senokot (Sennosides) 8.6 Mg Tablet 8.6 Mg PO BID Albuterol Sulfate Neb Soln (Albuterol Sulfate) 2.5 Mg/3 Ml Vial.neb 1 Vial NEB Q6HRS PRN Tylenol (Acetaminophen) 325 Mg Tablet 2 Tab PO Q6HRS PRN FENTANYL 75mcg/hr (Fentanyl) 1 Each Patch.td72 1 Patch TD Q72H Citalopram Hbr (Citalopram Hydrobromide) 20 Mg Tablet 1 Tab PO DAILY Furosemide 40 Mg Tablet 1 Tab PO DAILY Calcium 600 + Vit D 400 Softgl (Calcium Carbonate/Vitamin D3) 1 Each Capsule 600 Each PO DAILY Multi Vitamin Daily (Multivitamin) 1 Each Tablet 1 Each PO Finasteride 5 Mg Tablet 5 Mg PO DAILY Hydrocodone-Apap 10-325 (Hydrocodone Bit/Acetaminophen) 1 Each Tablet 1 Tab PO PRN Q6HRS PRN Hydroxyurea 500 Mg Capsule 1,000 Mg PO HS Pantoprazole Sodium 40 Mg Tablet.dr 40 Mg PO DAILY Carvedilol 3.125 Mg Tablet 3.125 Mg PO BIDWMEALS Levothyroxine Sodium 100 Mcg Tablet 100 Mcg PO DAILYAC Vitals/I & O Vital Sign - Last 24 Hours 11/18/16 11/18/16 11/18/16 11/18/16 14:55 19:00 20:00 20:12 Temp 97.8 97.5 97.8 97.5 Pulse 72 68 Resp 18 18 B/P 123/52 130/58 Pulse Ox 98 98 97 O2 Delivery Nasal Cannula Nasal Cannula Nasal Cannula Nasal Cannula O2 Flow Rate 3.0 3.0 2.0 2.0 11/18/16 11/18/16 11/18/16 11/18/16 21:39 22:32 23:13 23:37 Temp 97.9 97.9 Pulse 82 Resp 20 20 21 20 B/P 128/74 Pulse Ox 96 97 96 O2 Delivery Room Air Nasal Cannula Nasal Cannula Nasal Cannula O2 Flow Rate 2.0 2.0 3.0 2.0 11/19/16 11/19/16 11/19/16 11/19/16 06:39 07:00 07:39 07:53 Temp 97.5 97.5 Pulse 71 Resp 20 18 20 20 B/P 109/47 Pulse Ox 97 96 96 O2 Delivery Nasal Cannula Nasal Cannula Nasal Cannula Nasal Cannula O2 Flow Rate 2.0 3.0 2.0 2.0 11/19/16 11/19/16 11/19/16 11/19/16 07:57 07:58 08:00 08:20 Pulse 82 Resp 20 B/P 128/74 Pulse Ox 96 96 O2 Delivery Nasal Cannula Nasal Cannula Nasal Cannula O2 Flow Rate 2.0 2.0 2.0 11/19/16 11/19/16 11/19/16 11/19/16 11:00 11:44 11:47 12:17 Temp 97.5 97.5 Pulse 70 Resp 18 20 20 B/P 129/63 Pulse Ox 97 96 96 O2 Delivery Nasal Cannula Nasal Cannula Nasal Cannula Nasal Cannula O2 Flow Rate 3.0 2.0 2.0 2.0 11/19/16 11/19/16 11/19/16 12:17 13:31 13:31 Resp 20 20 20 Pulse Ox 96 96 96 O2 Delivery Nasal Cannula Nasal Cannula Nasal Cannula O2 Flow Rate 2.0 2.0 2.0 Intake and Output 11/18/16 11/18/16 11/19/16 15:00 23:00 07:00 Intake Total 200 ml 250 ml Balance 200 ml 250 ml Savana MORENO MD Nov 19, 2016 14:45
[2016-11-19 14:52] LABS: BILIRUBIN,URINE NEGATIVE (NEG); GLUCOSE,URINE NEGATIVE (NEG); NITRITE,URINE NEGATIVE (NEG); PH,URINE 6.5; PROTEIN,URINE NEGATIVE (NEG-TRACE); UROBILINOGEN,URINE 0.2 mg/dL (0.2 mg/dL)
[2016-11-19 15:00] VITALS: BP 112/48
[2016-11-19 15:06] LABS: BACTERIA,URINE 0 /HPF (0-FEW); RBC,URINE 0 /HPF (0-2); SQUAMOUS EPITHELIAL CELL,UR OCC /LPF; WBC,URINE OCC /HPF (0-4)
--- NOTE | 2016-11-19 15:23 | RAD ---
Nuclear medicine whole body bone scan History: Severe low back pain. Fall a few weeks ago. Comparison: MR lumbar spine 11/13/2016. Technique: Examination performed after intravenous administration of 25.0 mCi Technetium 99m MDP. Planar images of the whole body were obtained in the anterior and posterior projections. Additional planar imaging was obtained of distal lower legs and anterior and posterior projection. Right and left lateral projections of the chest were also obtained. Findings: There is increased activity involving 3 consecutive medial left ribs, possibly the eighth through 10th ribs. There appears to be activity involving the sacrum, which could indicate sacral insufficiency fracture, age indeterminate but likely within the last year. There is also activity involving what appears to be the L2, L3, and L4 vertebral bodies. There is a large amount of activity involving the left hindfoot and midfoot. There is mild activity involving left aspect of the cervical spine may relate to degeneration. Impression: 1. Multiple foci of activity can be seen involving medial left ribs. This may be secondary to fractures, although correlation with CT imaging may be helpful to exclude presence of metastatic lesion (if any history of malignancy). 2. There is activity involving the sacrum, suggesting sacral insufficiency fracture within the last year. Recommend clinical correlation. 3. There is significant activity involving multiple lower lumbar levels, probably, L3, and. These may indicate fractures or could be due to exuberant degenerative disc disease. 4. Activity involving the left midfoot and hindfoot. This finding is nonspecific, but may be degenerative in origin. Recommend clinical correlation. Correlation with dedicated radiographs may be of benefit.
[2016-11-19] MEDS: AA 3%/ELECTROLYTE-TPN SOLN/GLY 1,000 ML IV SCH (17:06)
[2016-11-19 19:00] VITALS: BP 107/48
[2016-11-19] MEDS: OXYCODONE ER 10 MG TAB.ER.12H. PO SCH (20:52)
[2016-11-19] MEDS: HYDROXYUREA 500 MG CAPSULE PO SCH (20:55)
[2016-11-19 23:00] VITALS: BP 116/65
[2016-11-20 03:03] VITALS: BP 132/63
[2016-11-20] MEDS: OXYCODONE/APAP 7.5/325 TABLET. PO PRN ×2 (05:22→16:29)
[2016-11-20] MEDS: HYDROMORPHONE 2 MG/ML VIAL. IVP PRN ×3 (05:23→21:51)
[2016-11-20] MEDS: AA 3%/ELECTROLYTE-TPN SOLN/GLY 1,000 ML IV SCH ×2 (05:29→16:27)
[2016-11-20 06:25] LABS: BASO % 1 % (0-3); EOS % 1 % (0-3); HEMOGLOBIN 7.9 g/dL (13.0-17.5); LYMPH # 0.4 x10^3/uL (1.0-4.8); LYMPH % 21 % (24-48); MEAN CORPUSCULAR HEMOGLOBIN 38 pg (25-35); MEAN CORPUSCULAR HGB CONC 32 g/dL (31-37); MEAN CORPUSCULAR VOLUME 119 fL (79-100); MONO % 10 % (0-9); NEUT % 67 % (31-73); PLATELET COUNT 424 x10^3/uL (140-400); RED BLOOD COUNT 2.09 x10^6/uL (4.30-5.70); RED CELL DISTRIBUTION WIDTH 29.7 % (11.5-14.5); WHITE BLOOD COUNT 2.1 x10^3/uL (4.0-11.0)
[2016-11-20 06:42] LABS: ALBUMIN/GLOBULIN RATIO 0.6 (1.0-1.7); CALCIUM 7.9 mg/dL (8.5-10.1); TOTAL PROTEIN 5.3 g/dL (6.4-8.2)
[2016-11-20 06:43] LABS: CREATININE 0.7 mg/dL (0.7-1.3); GFR 106.4; POTASSIUM 3.8 mmol/L (3.5-5.1); TOTAL BILIRUBIN 0.6 mg/dL (0.2-1.0)
[2016-11-20 07:00] VITALS: BP 115/49
[2016-11-20 07:48] LABS: % EOS 1 % (0-5)
[2016-11-20] MEDS: ALBUTEROL SULFATE 2.5 MG/3 ML NEBU. NEB SCH ×4 (07:53→19:51)
[2016-11-20 07:54] LABS: ANISOCYTOSIS SLIGHT; MICROCYTOSIS PRESENT; PLT ESTIMATE INCREASED (ADEQUATE)
[2016-11-20] MEDS: CARVEDILOL 3.125 MG TABLET PO SCH ×2 (08:00→16:28)
[2016-11-20] MEDS: FINASTERIDE 5 MG TABLET PO SCH (08:27)
[2016-11-20] MEDS: CITALOPRAM 20 MG TABLET. PO SCH (08:32)
--- NOTE | 2016-11-20 08:32 | PDOC ---
PROGRESS NOTES Subjective Subjective Patient states he slept well overnight. He reports continued pain in his hips although it is improved from yesterday. He does not have much of an appetite. Does not desire further testing an interventions. Unable to do therapy. Family needs assistance with hospice decision. Objective Objective Vital Signs Date Time Temp Pulse Resp B/P Pulse Ox O2 Delivery O2 Flow Rate FiO2 11/20/16 07:53 96 Nasal Cannula 2.0 11/20/16 07:00 98.5 78 18 115/49 98.5 Intake and Output 11/20/16 07:00 Intake Total 1180 ml Output Total 2961 ml Balance -1781 ml Intake Oral 1180 ml Output Urine Total 2961 ml # Voids 1 Physical Exam Abdomen: Normal bowel sounds Heart: Regular rate Extremities: No clubbing, Other (Edema in left leg and ankle, warmer on palpation) General: Alert, mild distress HEENT: Other (superficial facial abrasions) Lungs: Normal air movement MUSCULOSKELETAL: Other (Pain in hips bilaterally with movement) Neck: Supple Neuro: Normal speech Psych/Mental Status: Mental status NL Skin: Other (Ulcer on right foot, seeing wound care) Assessment Assessment Problems Medical Problems: (1) Lumbar back pain with subdural lumbar fluid collection, limiting mobility, family considering hospice if pain control and improved functional status cannot be achieved, initial fall 08/2016 precipitant cause, cone scan showing subacute sacral insufficiency fracture. (2) left hip pain - limiting mobility, Dr. North to inject (3) urinary retention with hx of BPH -new condition, now requiring Jones, UA unremarkable (4) recent UTI, MRSA - completed course of Bactrim (5) moderately severe protein malnutrition - with pleural fluid and anasarca, started Procalamine, encourage Boost tid and assist with feeding (6) aortic stenosis/ CAD - stable (7) heel pressure ulcer - wound care following, will re-evaluate today (8) anemia - chronic, stable after transfusion of 1 unit pRBC, mild drop likely due to Procalamine (9) atelectasis/COPD - continue neb tx (10) encephalopathy - resolved, was due to pain meds and anemia (11) supeficial thrombus left leg with elevated D-dimer, lovenox currently on hold (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 Labs Laboratory Tests Test 11/18/16 10:40 11/19/16 08:33 11/19/16 12:55 11/20/16 06:00 Sodium Level 138mmol/L (136-145) 137mmol/L (136-145) Potassium Level 3.6mmol/L (3.5-5.1) 3.8mmol/L (3.5-5.1) Chloride Level 99mmol/L (98-107) 99mmol/L (98-107) Carbon Dioxide Level 33mmol/L (21-32) 35mmol/L (21-32) Anion Gap 6 (6-14) 3 (6-14) Blood Urea Nitrogen 13mg/dL (8-26) 16mg/dL (8-26) Creatinine 0.8mg/dL (0.7-1.3) 0.7mg/dL (0.7-1.3) Estimated GFR (Cockcroft-Gault) 91.2 106.4 BUN/Creatinine Ratio 16 (6-20) 23 (6-20) Glucose Level 96mg/dL (70-99) 103mg/dL (70-99) Calcium Level 8.0mg/dL (8.5-10.1) 7.9mg/dL (8.5-10.1) Total Bilirubin 0.8mg/dL (0.2-1.0) 0.6mg/dL (0.2-1.0) Aspartate Amino Transf (AST/SGOT) 27U/L (15-37) 19U/L (15-37) Alanine Aminotransferase (ALT/SGPT) 24U/L (16-63) 19U/L (16-63) Alkaline Phosphatase 76U/L (46-116) 61U/L (46-116) Total Protein 5.8g/dL (6.4-8.2) 5.3g/dL (6.4-8.2) Albumin 2.4g/dL (3.4-5.0) 2.0g/dL (3.4-5.0) Albumin/Globulin Ratio 0.7 (1.0-1.7) 0.6 (1.0-1.7) White Blood Count 2.0x10^3/uL (4.0-11.0) 2.1x10^3/uL (4.0-11.0) Red Blood Count 2.26x10^6/uL (4.30-5.70) 2.09x10^6/uL (4.30-5.70) Hemoglobin 8.6g/dL (13.0-17.5) 7.9g/dL (13.0-17.5) Hematocrit 26.9% (39.0-53.0) 25.0% (39.0-53.0) Mean Corpuscular Volume 119fL (79-100) 119fL (79-100) Mean Corpuscular Hemoglobin 38pg (25-35) 38pg (25-35) Mean Corpuscular Hemoglobin Concent 32g/dL (31-37) 32g/dL (31-37) Red Cell Distribution Width 30.2% (11.5-14.5) 29.7% (11.5-14.5) Platelet Count 496x10^3/uL (140-400) 424x10^3/uL (140-400) Neutrophils (%) (Auto) 63% (31-73) 67% (31-73) Lymphocytes (%) (Auto) 25% (24-48) 21% (24-48) Monocytes (%) (Auto) 9% (0-9) 10% (0-9) Eosinophils (%) (Auto) 1% (0-3) 1% (0-3) Basophils (%) (Auto) 1% (0-3) 1% (0-3) Neutrophils # (Auto) 1.3x10^3uL (1.8-7.7) 1.4x10^3uL (1.8-7.7) Lymphocytes # (Auto) 0.5x10^3/uL (1.0-4.8) 0.4x10^3/uL (1.0-4.8) Monocytes # (Auto) 0.2x10^3/uL (0.0-1.1) 0.2x10^3/uL (0.0-1.1) Eosinophils # (Auto) 0.0x10^3/uL (0.0-0.7) 0.0x10^3/uL (0.0-0.7) Basophils # (Auto) 0.0x10^3/uL (0.0-0.2) 0.0x10^3/uL (0.0-0.2) Urine Collection Type Unknown Urine Color Yellow Urine Clarity Clear Urine pH 6.5 Urine Specific [place] 1.010 Urine Protein Negativemg/dL (NEG-TRACE) Urine Glucose (UA) Negativemg/dL (NEG) Urine Ketones (Stick) Negativemg/dL (NEG) Urine Blood Negative (NEG) Urine Nitrite Negative (NEG) Urine Bilirubin Negative (NEG) Urine Urobilinogen Dipstick 0.2mg/dL (0.2 mg/dL) Urine Leukocyte Esterase Trace (NEG) Urine RBC 0/HPF (0-2) Urine WBC Occ/HPF (0-4) Urine Squamous Epithelial Cells Occ/LPF Urine Bacteria 0/HPF (0-FEW) Urine Hyaline Casts Occasional/HPF Urine Mucus Mod/LPF Segmented Neutrophils % 64% (35-66) Band Neutrophils % 7% (0-9) Lymphocytes % 20% (24-48) Monocytes % 7% (0-10) Eosinophils % 1% (0-5) Myelocytes % 1% (0-0) Platelet Estimate Increased (ADEQUATE) Large Platelets Present Anisocytosis Slight Microcytosis Present Erythrocyte Sedimentation Rate 86 (0-15) Laboratory Tests Test 11/19/16 08:33 11/19/16 12:55 11/20/16 06:00 White Blood Count 2.0x10^3/uL (4.0-11.0) 2.1x10^3/uL (4.0-11.0) Red Blood Count 2.26x10^6/uL (4.30-5.70) 2.09x10^6/uL (4.30-5.70) Hemoglobin 8.6g/dL (13.0-17.5) 7.9g/dL (13.0-17.5) Hematocrit 26.9% (39.0-53.0) 25.0% (39.0-53.0) Mean Corpuscular Volume 119fL (79-100) 119fL (79-100) Mean Corpuscular Hemoglobin 38pg (25-35) 38pg (25-35) Mean Corpuscular Hemoglobin Concent 32g/dL (31-37) 32g/dL (31-37) Red Cell Distribution Width 30.2% (11.5-14.5) 29.7% (11.5-14.5) Platelet Count 496x10^3/uL (140-400) 424x10^3/uL (140-400) Neutrophils (%) (Auto) 63% (31-73) 67% (31-73) Lymphocytes (%) (Auto) 25% (24-48) 21% (24-48) Monocytes (%) (Auto) 9% (0-9) 10% (0-9) Eosinophils (%) (Auto) 1% (0-3) 1% (0-3) Basophils (%) (Auto) 1% (0-3) 1% (0-3) Neutrophils # (Auto) 1.3x10^3uL (1.8-7.7) 1.4x10^3uL (1.8-7.7) Lymphocytes # (Auto) 0.5x10^3/uL (1.0-4.8) 0.4x10^3/uL (1.0-4.8) Monocytes # (Auto) 0.2x10^3/uL (0.0-1.1) 0.2x10^3/uL (0.0-1.1) Eosinophils # (Auto) 0.0x10^3/uL (0.0-0.7) 0.0x10^3/uL (0.0-0.7) Basophils # (Auto) 0.0x10^3/uL (0.0-0.2) 0.0x10^3/uL (0.0-0.2) Urine Collection Type Unknown Urine Color Yellow Urine Clarity Clear Urine pH 6.5 Urine Specific [place] 1.010 Urine Protein Negativemg/dL (NEG-TRACE) Urine Glucose (UA) Negativemg/dL (NEG) Urine Ketones (Stick) Negativemg/dL (NEG) Urine Blood Negative (NEG) Urine Nitrite Negative (NEG) Urine Bilirubin Negative (NEG) Urine Urobilinogen Dipstick 0.2mg/dL (0.2 mg/dL) Urine Leukocyte Esterase Trace (NEG) Urine RBC 0/HPF (0-2) Urine WBC Occ/HPF (0-4) Urine Squamous Epithelial Cells Occ/LPF Urine Bacteria 0/HPF (0-FEW) Urine Hyaline Casts Occasional/HPF Urine Mucus Mod/LPF Segmented Neutrophils % 64% (35-66) Band Neutrophils % 7% (0-9) Lymphocytes % 20% (24-48) Monocytes % 7% (0-10) Eosinophils % 1% (0-5) Myelocytes % 1% (0-0) Platelet Estimate Increased (ADEQUATE) Large Platelets Present Anisocytosis Slight Microcytosis Present Erythrocyte Sedimentation Rate 86 (0-15) Sodium Level 137mmol/L (136-145) Potassium Level 3.8mmol/L (3.5-5.1) Chloride Level 99mmol/L (98-107) Carbon Dioxide Level 35mmol/L (21-32) Anion Gap 3 (6-14) Blood Urea Nitrogen 16mg/dL (8-26) Creatinine 0.7mg/dL (0.7-1.3) Estimated GFR (Cockcroft-Gault) 106.4 BUN/Creatinine Ratio 23 (6-20) Glucose Level 103mg/dL (70-99) Calcium Level 7.9mg/dL (8.5-10.1) Total Bilirubin 0.6mg/dL (0.2-1.0) Aspartate Amino Transf (AST/SGOT) 19U/L (15-37) Alanine Aminotransferase (ALT/SGPT) 19U/L (16-63) Alkaline Phosphatase 61U/L (46-116) Total Protein 5.3g/dL (6.4-8.2) Albumin 2.0g/dL (3.4-5.0) Albumin/Globulin Ratio 0.6 (1.0-1.7) Microbiology 11/15/16 Blood Culture - Preliminary, Resulted NO GROWTH AFTER 4 DAYS Medications Current Medications Ondansetron HCl (Zofran) 4 mg PRN Q8HRS PRN IV NAUSEA/VOMITING Last administered on 11/14/16 22:44; Start 11/14/16 at 22:15; Stop 11/15/16 at 22:14; Status DC Fentanyl Citrate (Fentanyl 2ml Vial) 50 mcg PRN Q2HR PRN IV SEVERE PAIN Last administered on 11/14/16 22:46; Start 11/14/16 at 22:15; Stop 11/15/16 at 22:14; Status DC Acetaminophen (Tylenol) 650 mg PRN Q4HRS PRN PO FEVER; Start 11/14/16 at 22:15; Stop 11/15/16 at 22:14; Status DC Acetaminophen (Tylenol) 650 mg PRN Q6HRS PRN PO FEVER; Start 11/15/16 at 07:00 Albuterol Sulfate (Ventolin Neb Soln) 1 mg PRN Q6HRS PRN NEB SHORTNESS OF BREATH; Start 11/15/16 at 07:00 Carvedilol (Coreg) 3.125 mg BIDWMEALS PO Last administered on 11/19/16 17:05; Start 11/15/16 at 08:00 Citalopram Hydrobromide (Celexa) 20 mg DAILY PO Last administered on 11/19/16 07:58; Start 11/15/16 at 09:00 Fentanyl (Duragesic 75mcg/ Hr Patch) 1 patch Q72H TD Last administered on 11:04; Start 11/15/16 at 07:00; Stop 11/16/16 at 12:10; Status DC Finasteride (Proscar) 5 mg DAILY PO Last administered on 11/19/16 07:57; Start 11/15/16 at 09:00 Furosemide (Lasix) 40 mg DAILY PO Last administered on 11/15/16 11:06; Start at 09:00; Stop 11/16/16 at 17:42; Status DC Acetaminophen/ Hydrocodone Bitart (Lortab 10/325) 1 tab PRN Q6HRS PRN PO SEVERE PAIN Last administered on 11/18/16 03:37; Start 11/15/16 at 07:00; Stop 11/18/16 at 08:46; Status DC Hydroxyurea (Hydrea) 1,000 mg [id number] PO Last administered on 11/19/16 20 :55; Start 11/15/16 at 21:00 Levothyroxine Sodium (Synthroid) 100 mcg DAILYAC PO Last administered on 07:57; Start 11/15/16 at 07:30 Pantoprazole Sodium (Protonix) 40 mg DAILYAC PO Last administered on 11/19/16 07:57; Start 11/15/16 at 07:30 Sennosides (Senna) 8.6 mg BID PO Last administered on 11/19/16 20:52; Start at 09:00 Trimethoprim/ Sulfamethoxazole (Bactrim Ds) 1 tab BID PO Last administered on 11:30; Start 11/15/16 at 09:00; Stop 11/15/16 at 14:32; Status DC Calcium/Vitamin D (Oscal D 500mg/ 200uts) 1 tab DAILY PO Last administered on 07:58; Start 11/15/16 at 09:00 Multivitamins/ Calcium (Thera M Plus) 1 tab DAILY PO Last administered on 07:58; Start 11/15/16 at 09:00 Hydroxyurea (Hydrea) 1,500 mg QFRIDAY PO ; Start 11/21/16 at 21:00 Enoxaparin Sodium (Lovenox 40mg Syringe) 40 mg Q24H SQ Last administered on 11/16 13:51; Start 11/15/16 at 13:00; Stop 11/16/16 at 19:19; Status DC Albuterol Sulfate 2.5 mg 2.5 mg RTQID NEB Last administered on 11/20/16 07:53 ; Start 11/16/16 at 12:00 Dextrose/Lactated Ringer's (Iv D5%-Lr) 1,000 ml @ 75 mls/hr [id number] IV Last administered on 11/17/16 01:53; Start 11/16/16 at 12:00; Stop 11/17/16 at 17:02; Status DC Furosemide (Lasix) 40 mg DAILY IVP ; Start 11/17/16 at 21:00; Stop 11/17/16 at 21: 00; Status DC Furosemide (Lasix) 40 mg DAILY IVP Last administered on 11/19/16 07:56; Start 11/16/16 at 21:00 Enoxaparin Sodium (Lovenox 100mg Syringe) 90 mg Q12HR SQ Last administered on 22:25; Start 11/16/16 at 21:00; Stop 11/17/16 at 10:23; Status DC Gadobutrol (Gadavist) 7.5 mmol 1X ONCE IV Last administered on 11/17/16 10:52 ; Start 11/17/16 at 10:30; Stop 11/17/16 at 10:32; Status DC Oxycodone/ Acetaminophen (Percocet 7.5/ 325) 1 tab PRN Q6HRS PRN PO PAIN Last administered on 11/20/16 05:22; Start 11/18/16 at 08:45 Iohexol (Omnipaque 180 Mg/ml) 10 ml 1X ONCE IJ ; Start 11/18/16 at 09:15; Stop 11/18/16 at 09:16; Status DC Iohexol (Omnipaque 180 Mg/ml) 20 ml 1X ONCE IJ ; Start 11/18/16 at 09:15; Stop 11/18/16 at 09:16; Status DC Hydromorphone HCl (Dilaudid) 0.5 mg 1X ONCE IV Last administered on 11/18/16 10:00; Start 11/18/16 at 10:00; Stop 11/18/16 at 10:01; Status DC Oxycodone HCl (Oxycontin) 15 mg Q12HR PO Last administered on 11/19/16 07:57; Start 11/18/16 at 11:00; Stop 11/19/16 at 09:45; Status DC Hydromorphone HCl (Dilaudid) 0.4 mg PRN Q4HRS PRN IVP PAIN Last administered on 11/20/16 05:23; Start 11/18/16 at 10:15 Oxycodone HCl 20 mg 20 mg Q12HR PO Last administered on 11/19/16 20:52; Start 11/19/16 at 21:00 Amino Acids/ Glycerin/ Electrolytes (Procalamine) 1,000 ml @ 80 mls/hr [id number] IV Last administered on 11/20/16 05:29; Start 11/19/16 at 15:00 Active Scripts Active Bactrim Ds Tablet (Sulfamethoxazole/Trimethoprim) 1 Each Tablet 1 Tab PO BID Reported Senokot (Sennosides) 8.6 Mg Tablet 8.6 Mg PO BID Albuterol Sulfate Neb Soln (Albuterol Sulfate) 2.5 Mg/3 Ml Vial.neb 1 Vial NEB Q6HRS PRN Tylenol (Acetaminophen) 325 Mg Tablet 2 Tab PO Q6HRS PRN FENTANYL 75mcg/hr (Fentanyl) 1 Each Patch.td72 1 Patch TD Q72H Citalopram Hbr (Citalopram Hydrobromide) 20 Mg Tablet 1 Tab PO DAILY Furosemide 40 Mg Tablet 1 Tab PO DAILY Calcium 600 + Vit D 400 Softgl (Calcium Carbonate/Vitamin D3) 1 Each Capsule 600 Each PO DAILY Multi Vitamin Daily (Multivitamin) 1 Each Tablet 1 Each PO Finasteride 5 Mg Tablet 5 Mg PO DAILY Hydrocodone-Apap 10-325 (Hydrocodone Bit/Acetaminophen) 1 Each Tablet 1 Tab PO PRN Q6HRS PRN Hydroxyurea 500 Mg Capsule 1,000 Mg PO HS Pantoprazole Sodium 40 Mg Tablet.dr 40 Mg PO DAILY Carvedilol 3.125 Mg Tablet 3.125 Mg PO BIDWMEALS Levothyroxine Sodium 100 Mcg Tablet 100 Mcg PO DAILYAC Vitals/I & O Vital Sign - Last 24 Hours 11/19/16 11/19/16 11/19/16 11/19/16 11:00 11:44 11:47 12:17 Temp 97.5 97.5 Pulse 70 Resp 18 20 20 B/P 129/63 Pulse Ox 97 96 96 O2 Delivery Nasal Cannula Nasal Cannula Nasal Cannula Nasal Cannula O2 Flow Rate 3.0 2.0 2.0 2.0 11/19/16 11/19/16 11/19/16 11/19/16 13:31 13:31 14:31 15:00 Temp 97.5 97.5 Pulse 76 Resp 20 20 20 18 B/P 112/48 Pulse Ox 96 96 98 O2 Delivery Nasal Cannula Nasal Cannula Nasal Cannula O2 Flow Rate 2.0 2.0 3.0 11/19/16 11/19/16 11/19/16 11/19/16 15:16 17:05 17:56 18:26 Pulse 76 Resp 20 20 B/P 112/48 Pulse Ox 98 O2 Delivery Nasal Cannula Nasal Cannula O2 Flow Rate 2.0 2.0 11/19/16 11/19/16 11/19/16 11/19/16 19:00 20:13 20:28 20:52 Temp 97.5 97.5 Pulse 70 Resp 20 B/P 107/48 Pulse Ox 98 98 98 O2 Delivery Nasal Cannula Nasal Cannula Nasal Cannula Nasal Cannula O2 Flow Rate 3.0 3.0 3.0 3.0 1/11/17 1/11/17 1/11/17 1/12/17 23:00 23:25 23:25 00:31 Temp 99.5 99.5 Pulse 81 Resp 20 B/P 116/65 Pulse Ox 98 98 98 98 O2 Delivery Nasal Cannula Nasal Cannula Nasal Cannula Nasal Cannula O2 Flow Rate 3.0 3.0 3.0 3.0 11/20/16 11/20/16 11/20/16 11/20/16 03:03 05:22 05:23 06:04 Temp 99.5 99.5 Pulse 77 Resp 20 B/P 132/63 Pulse Ox 94 94 94 94 O2 Delivery Nasal Cannula Nasal Cannula Nasal Cannula Nasal Cannula O2 Flow Rate 3.0 3.0 3.0 3.0 11/20/16 11/20/16 11/20/16 06:15 07:00 07:53 Temp 98.5 98.5 Pulse 78 Resp 18 B/P 115/49 Pulse Ox 94 93 96 O2 Delivery Nasal Cannula Nasal Cannula O2 Flow Rate 3.0 2.0 Intake and Output 11/19/16 11/19/16 11/20/16 15:00 23:00 07:00 Intake Total 240 ml 940 ml Output Total 2511 ml 450 ml Balance 240 ml -1571 ml -450 ml Savana MORENO MD Nov 20, 2016 08:32
[2016-11-20] MEDS: OXYCODONE ER 10 MG TAB.ER.12H. PO SCH ×2 (08:33→21:49)
[2016-11-20] MEDS: SENNOSIDES 8.6 MG TABLET PO SCH ×2 (08:33→21:49)
[2016-11-20] MEDS: FUROSEMIDE 40 MG/4 ML VIAL IVP SCH (08:34)
[2016-11-20] MEDS: CALCIUM CARB/VIT D3 500/200 TABLET PO SCH (08:34)
[2016-11-20] MEDS: MULTIVITAMIN with MINERAL TABLET. PO SCH (08:34)
[2016-11-20] MEDS: PANTOPRAZOLE 40 MG TABLET. PO SCH (08:34)
[2016-11-20 11:00] VITALS: BP 116/65
--- NOTE | 2016-11-20 12:43 | PDOC ---
SUBJECTIVE Subjective Reports hip pain improved today. Denies other acute changes. Overall, in better spirit today. ROS: denies tingling, chest pain, soa OBJECTIVE Objective bone study results reviewed Vital Signs Vital Signs Date Time Temp Pulse Resp B/P Pulse Ox O2 Delivery O2 Flow Rate FiO2 11/20/16 11:00 98.5 62 18 116/65 98 98.5 11/20/16 08:33 18 96 Nasal Cannula 11/20/16 08:00 Nasal Cannula 2.0 11/20/16 08:00 78 115/49 11/20/16 07:53 96 Nasal Cannula 2.0 11/20/16 07:00 98.5 78 18 115/49 93 98.5 11/20/16 06:15 94 Nasal Cannula 3.0 11/20/16 06:04 94 Nasal Cannula 3.0 11/20/16 05:23 94 Nasal Cannula 3.0 11/20/16 05:22 94 Nasal Cannula 3.0 11/20/16 03:03 99.5 77 20 132/63 94 Nasal Cannula 3.0 99.5 11/20/16 00:31 98 Nasal Cannula 3.0 11/19/16 23:25 98 Nasal Cannula 3.0 11/19/16 23:25 98 Nasal Cannula 3.0 11/19/16 23:00 99.5 81 20 116/65 98 Nasal Cannula 3.0 99.5 11/19/16 20:52 98 Nasal Cannula 3.0 11/19/16 20:28 98 Nasal Cannula 3.0 11/19/16 20:13 Nasal Cannula 3.0 11/19/16 19:00 97.5 70 20 107/48 98 Nasal Cannula 3.0 97.5 11/19/16 18:26 20 11/19/16 17:56 20 98 Nasal Cannula 2.0 11/19/16 17:05 76 112/48 11/19/16 15:16 Nasal Cannula 2.0 11/19/16 15:00 97.5 76 18 112/48 98 Nasal Cannula 3.0 97.5 11/19/16 14:31 20 11/19/16 13:31 20 96 Nasal Cannula 2.0 11/19/16 13:31 20 96 Nasal Cannula 2.0 I & O Intake and Output 11/20/16 07:00 Intake Total 1180 ml Output Total 2961 ml Balance -1781 ml Intake Oral 1180 ml Output Urine Total 2961 ml # Voids 1 PHYSICAL EXAM Physical Exam AA, NAD, speech fluent, strength stable, less hip pain, sensation intact LT ASSESSMENT/PLAN Assessment/Plan 86M with improving hip pain today, abnormal lumbar MR, poss sacral insuff fxr on bone scan -pt expresses does not want any more tests or procedures -disp pending -orders for palliative care consult noted -no additional recs at present time Problems: COMMENT Lab Laboratory Tests Test 11/19/16 12:55 11/20/16 06:00 Urine Collection Type Unknown Urine Color Yellow Urine Clarity Clear Urine pH 6.5 Urine Specific Red [place] 1.010 Urine Protein Negativemg/dL (NEG-TRACE) Urine Glucose (UA) Negativemg/dL (NEG) Urine Ketones (Stick) Negativemg/dL (NEG) Urine Blood Negative (NEG) Urine Nitrite Negative (NEG) Urine Bilirubin Negative (NEG) Urine Urobilinogen Dipstick 0.2mg/dL (0.2 mg/dL) Urine Leukocyte Esterase Trace (NEG) Urine RBC 0/HPF (0-2) Urine WBC Occ/HPF (0-4) Urine Squamous Epithelial Cells Occ/LPF Urine Bacteria 0/HPF (0-FEW) Urine Hyaline Casts Occasional/HPF Urine Mucus Mod/LPF White Blood Count 2.1x10^3/uL (4.0-11.0) Red Blood Count 2.09x10^6/uL (4.30-5.70) Hemoglobin 7.9g/dL (13.0-17.5) Hematocrit 25.0% (39.0-53.0) Mean Corpuscular Volume 119fL (79-100) Mean Corpuscular Hemoglobin 38pg (25-35) Mean Corpuscular Hemoglobin Concent 32g/dL (31-37) Red Cell Distribution Width 29.7% (11.5-14.5) Platelet Count 424x10^3/uL (140-400) Neutrophils (%) (Auto) 67% (31-73) Lymphocytes (%) (Auto) 21% (24-48) Monocytes (%) (Auto) 10% (0-9) Eosinophils (%) (Auto) 1% (0-3) Basophils (%) (Auto) 1% (0-3) Neutrophils # (Auto) 1.4x10^3uL (1.8-7.7) Lymphocytes # (Auto) 0.4x10^3/uL (1.0-4.8) Monocytes # (Auto) 0.2x10^3/uL (0.0-1.1) Eosinophils # (Auto) 0.0x10^3/uL (0.0-0.7) Basophils # (Auto) 0.0x10^3/uL (0.0-0.2) Segmented Neutrophils % 64% (35-66) Band Neutrophils % 7% (0-9) Lymphocytes % 20% (24-48) Monocytes % 7% (0-10) Eosinophils % 1% (0-5) Myelocytes % 1% (0-0) Platelet Estimate Increased (ADEQUATE) Large Platelets Present Anisocytosis Slight Microcytosis Present Erythrocyte Sedimentation Rate 86 (0-15) Sodium Level 137mmol/L (136-145) Potassium Level 3.8mmol/L (3.5-5.1) Chloride Level 99mmol/L (98-107) Carbon Dioxide Level 35mmol/L (21-32) Anion Gap 3 (6-14) Blood Urea Nitrogen 16mg/dL (8-26) Creatinine 0.7mg/dL (0.7-1.3) Estimated GFR (Cockcroft-Gault) 106.4 BUN/Creatinine Ratio 23 (6-20) Glucose Level 103mg/dL (70-99) Calcium Level 7.9mg/dL (8.5-10.1) Total Bilirubin 0.6mg/dL (0.2-1.0) Aspartate Amino Transf (AST/SGOT) 19U/L (15-37) Alanine Aminotransferase (ALT/SGPT) 19U/L (16-63) Alkaline Phosphatase 61U/L (46-116) Total Protein 5.3g/dL (6.4-8.2) Albumin 2.0g/dL (3.4-5.0) Albumin/Globulin Ratio 0.6 (1.0-1.7) ARIANNA WILKERSON MD Nov 20, 2016 12:43
[2016-11-20] MEDS: PREDNISONE 20 MG TABLET PO SCH (13:08)
[2016-11-20] MEDS: LEVOTHYROXINE 100 MCG TABLET PO SCH (13:08)
[2016-11-20 15:00] VITALS: BP 105/48
--- NOTE | 2016-11-20 17:39 | PDOC ---
PROGRESS NOTES Subjective Subjective He admits continued hip area pain but hesitant about any procedures. Objective Objective Vital Signs Date Time Temp Pulse Resp B/P Pulse Ox O2 Delivery O2 Flow Rate FiO2 11/20/16 16:33 95 Nasal Cannula 2.0 11/20/16 16:29 16 11/20/16 16:28 72 114/52 11/20/16 15:00 96.8 96.8 Intake and Output 11/20/16 07:00 Intake Total 1180 ml Output Total 2961 ml Balance -1781 ml Intake Oral 1180 ml Output Urine Total 2961 ml # Voids 1 Physical Exam Physical Exam He is supine in bed and he is considering sacroplasty and it might help ease his hip pain to at least help him to sit up. Assessment Assessment Problems Medical Problems: (1) Lumbar back pain Status: Acute Plan Plan of Care To await his decision about kyphoplasty. Comment Review of Relevant I have reviewed the following items michael (where applicable) has been applied. Labs Laboratory Tests Test 11/19/16 08:33 11/19/16 12:55 11/20/16 06:00 White Blood Count 2.0x10^3/uL (4.0-11.0) 2.1x10^3/uL (4.0-11.0) Red Blood Count 2.26x10^6/uL (4.30-5.70) 2.09x10^6/uL (4.30-5.70) Hemoglobin 8.6g/dL (13.0-17.5) 7.9g/dL (13.0-17.5) Hematocrit 26.9% (39.0-53.0) 25.0% (39.0-53.0) Mean Corpuscular Volume 119fL (79-100) 119fL (79-100) Mean Corpuscular Hemoglobin 38pg (25-35) 38pg (25-35) Mean Corpuscular Hemoglobin Concent 32g/dL (31-37) 32g/dL (31-37) Red Cell Distribution Width 30.2% (11.5-14.5) 29.7% (11.5-14.5) Platelet Count 496x10^3/uL (140-400) 424x10^3/uL (140-400) Neutrophils (%) (Auto) 63% (31-73) 67% (31-73) Lymphocytes (%) (Auto) 25% (24-48) 21% (24-48) Monocytes (%) (Auto) 9% (0-9) 10% (0-9) Eosinophils (%) (Auto) 1% (0-3) 1% (0-3) Basophils (%) (Auto) 1% (0-3) 1% (0-3) Neutrophils # (Auto) 1.3x10^3uL (1.8-7.7) 1.4x10^3uL (1.8-7.7) Lymphocytes # (Auto) 0.5x10^3/uL (1.0-4.8) 0.4x10^3/uL (1.0-4.8) Monocytes # (Auto) 0.2x10^3/uL (0.0-1.1) 0.2x10^3/uL (0.0-1.1) Eosinophils # (Auto) 0.0x10^3/uL (0.0-0.7) 0.0x10^3/uL (0.0-0.7) Basophils # (Auto) 0.0x10^3/uL (0.0-0.2) 0.0x10^3/uL (0.0-0.2) Urine Collection Type Unknown Urine Color Yellow Urine Clarity Clear Urine pH 6.5 Urine Specific [place] 1.010 Urine Protein Negativemg/dL (NEG-TRACE) Urine Glucose (UA) Negativemg/dL (NEG) Urine Ketones (Stick) Negativemg/dL (NEG) Urine Blood Negative (NEG) Urine Nitrite Negative (NEG) Urine Bilirubin Negative (NEG) Urine Urobilinogen Dipstick 0.2mg/dL (0.2 mg/dL) Urine Leukocyte Esterase Trace (NEG) Urine RBC 0/HPF (0-2) Urine WBC Occ/HPF (0-4) Urine Squamous Epithelial Cells Occ/LPF Urine Bacteria 0/HPF (0-FEW) Urine Hyaline Casts Occasional/HPF Urine Mucus Mod/LPF Segmented Neutrophils % 64% (35-66) Band Neutrophils % 7% (0-9) Lymphocytes % 20% (24-48) Monocytes % 7% (0-10) Eosinophils % 1% (0-5) Myelocytes % 1% (0-0) Platelet Estimate Increased (ADEQUATE) Large Platelets Present Anisocytosis Slight Microcytosis Present Erythrocyte Sedimentation Rate 86 (0-15) Sodium Level 137mmol/L (136-145) Potassium Level 3.8mmol/L (3.5-5.1) Chloride Level 99mmol/L (98-107) Carbon Dioxide Level 35mmol/L (21-32) Anion Gap 3 (6-14) Blood Urea Nitrogen 16mg/dL (8-26) Creatinine 0.7mg/dL (0.7-1.3) Estimated GFR (Cockcroft-Gault) 106.4 BUN/Creatinine Ratio 23 (6-20) Glucose Level 103mg/dL (70-99) Calcium Level 7.9mg/dL (8.5-10.1) Total Bilirubin 0.6mg/dL (0.2-1.0) Aspartate Amino Transf (AST/SGOT) 19U/L (15-37) Alanine Aminotransferase (ALT/SGPT) 19U/L (16-63) Alkaline Phosphatase 61U/L (46-116) Total Protein 5.3g/dL (6.4-8.2) Albumin 2.0g/dL (3.4-5.0) Albumin/Globulin Ratio 0.6 (1.0-1.7) Laboratory Tests Test 11/20/16 06:00 White Blood Count 2.1x10^3/uL (4.0-11.0) Red Blood Count 2.09x10^6/uL (4.30-5.70) Hemoglobin 7.9g/dL (13.0-17.5) Hematocrit 25.0% (39.0-53.0) Mean Corpuscular Volume 119fL (79-100) Mean Corpuscular Hemoglobin 38pg (25-35) Mean Corpuscular Hemoglobin Concent 32g/dL (31-37) Red Cell Distribution Width 29.7% (11.5-14.5) Platelet Count 424x10^3/uL (140-400) Neutrophils (%) (Auto) 67% (31-73) Lymphocytes (%) (Auto) 21% (24-48) Monocytes (%) (Auto) 10% (0-9) Eosinophils (%) (Auto) 1% (0-3) Basophils (%) (Auto) 1% (0-3) Neutrophils # (Auto) 1.4x10^3uL (1.8-7.7) Lymphocytes # (Auto) 0.4x10^3/uL (1.0-4.8) Monocytes # (Auto) 0.2x10^3/uL (0.0-1.1) Eosinophils # (Auto) 0.0x10^3/uL (0.0-0.7) Basophils # (Auto) 0.0x10^3/uL (0.0-0.2) Segmented Neutrophils % 64% (35-66) Band Neutrophils % 7% (0-9) Lymphocytes % 20% (24-48) Monocytes % 7% (0-10) Eosinophils % 1% (0-5) Myelocytes % 1% (0-0) Platelet Estimate Increased (ADEQUATE) Large Platelets Present Anisocytosis Slight Microcytosis Present Erythrocyte Sedimentation Rate 86 (0-15) Sodium Level 137mmol/L (136-145) Potassium Level 3.8mmol/L (3.5-5.1) Chloride Level 99mmol/L (98-107) Carbon Dioxide Level 35mmol/L (21-32) Anion Gap 3 (6-14) Blood Urea Nitrogen 16mg/dL (8-26) Creatinine 0.7mg/dL (0.7-1.3) Estimated GFR (Cockcroft-Gault) 106.4 BUN/Creatinine Ratio 23 (6-20) Glucose Level 103mg/dL (70-99) Calcium Level 7.9mg/dL (8.5-10.1) Total Bilirubin 0.6mg/dL (0.2-1.0) Aspartate Amino Transf (AST/SGOT) 19U/L (15-37) Alanine Aminotransferase (ALT/SGPT) 19U/L (16-63) Alkaline Phosphatase 61U/L (46-116) Total Protein 5.3g/dL (6.4-8.2) Albumin 2.0g/dL (3.4-5.0) Albumin/Globulin Ratio 0.6 (1.0-1.7) Microbiology 11/15/16 Blood Culture - Final, Complete NO GROWTH AFTER 5 DAYS 11/19/16 Urine Culture - Preliminary, Resulted 11/19/16 Urine Culture Result 1 (KEVIN) - Preliminary, Resulted Medications Current Medications Ondansetron HCl (Zofran) 4 mg PRN Q8HRS PRN IV NAUSEA/VOMITING Last administered on 11/14/16 22:44; Start 11/14/16 at 22:15; Stop 11/15/16 at 22:14; Status DC Fentanyl Citrate (Fentanyl 2ml Vial) 50 mcg PRN Q2HR PRN IV SEVERE PAIN Last administered on 11/14/16 22:46; Start 11/14/16 at 22:15; Stop 11/15/16 at 22:14; Status DC Acetaminophen (Tylenol) 650 mg PRN Q4HRS PRN PO FEVER; Start 11/14/16 at 22:15; Stop 11/15/16 at 22:14; Status DC Acetaminophen (Tylenol) 650 mg PRN Q6HRS PRN PO FEVER; Start 11/15/16 at 07:00 Albuterol Sulfate (Ventolin Neb Soln) 1 mg PRN Q6HRS PRN NEB SHORTNESS OF BREATH; Start 11/15/16 at 07:00 Carvedilol (Coreg) 3.125 mg BIDWMEALS PO Last administered on 11/20/16 16:28; Start 11/15/16 at 08:00 Citalopram Hydrobromide (Celexa) 20 mg DAILY PO Last administered on 11/20/16 08:32; Start 11/15/16 at 09:00 Fentanyl (Duragesic 75mcg/ Hr Patch) 1 patch Q72H TD Last administered on 11:04; Start 11/15/16 at 07:00; Stop 11/16/16 at 12:10; Status DC Finasteride (Proscar) 5 mg DAILY PO Last administered on 11/20/16 08:27; Start 11/15/16 at 09:00 Furosemide (Lasix) 40 mg DAILY PO Last administered on 11/15/16 11:06; Start at 09:00; Stop 11/16/16 at 17:42; Status DC Acetaminophen/ Hydrocodone Bitart (Lortab 10/325) 1 tab PRN Q6HRS PRN PO SEVERE PAIN Last administered on 11/18/16 03:37; Start 11/15/16 at 07:00; Stop 11/18/16 at 08:46; Status DC Hydroxyurea (Hydrea) 1,000 mg [id number] PO Last administered on 11/19/16 20 :55; Start 11/15/16 at 21:00 Levothyroxine Sodium (Synthroid) 100 mcg DAILYAC PO Last administered on 13:08; Start 11/15/16 at 07:30 Pantoprazole Sodium (Protonix) 40 mg DAILYAC PO Last administered on 11/20/16 08:34; Start 11/15/16 at 07:30 Sennosides (Senna) 8.6 mg BID PO Last administered on 11/20/16 08:33; Start at 09:00 Trimethoprim/ Sulfamethoxazole (Bactrim Ds) 1 tab BID PO Last administered on 11:30; Start 11/15/16 at 09:00; Stop 11/15/16 at 14:32; Status DC Calcium/Vitamin D (Oscal D 500mg/ 200uts) 1 tab DAILY PO Last administered on 08:34; Start 11/15/16 at 09:00 Multivitamins/ Calcium (Thera M Plus) 1 tab DAILY PO Last administered on 08:34; Start 11/15/16 at 09:00 Hydroxyurea (Hydrea) 1,500 mg QFRIDAY PO ; Start 11/21/16 at 21:00 Enoxaparin Sodium (Lovenox 40mg Syringe) 40 mg Q24H SQ Last administered on 11/16 13:51; Start 11/15/16 at 13:00; Stop 11/16/16 at 19:19; Status DC Albuterol Sulfate 2.5 mg 2.5 mg RTQID NEB Last administered on 11/20/16 16:33 ; Start 11/16/16 at 12:00 Dextrose/Lactated Ringer's (Iv D5%-Lr) 1,000 ml @ 75 mls/hr [id number] IV Last administered on 11/17/16 01:53; Start 11/16/16 at 12:00; Stop 11/17/16 at 17:02; Status DC Furosemide (Lasix) 40 mg DAILY IVP ; Start 11/17/16 at 21:00; Stop 11/17/16 at 21: 00; Status DC Furosemide (Lasix) 40 mg DAILY IVP Last administered on 11/20/16 08:34; Start 11/16/16 at 21:00 Enoxaparin Sodium (Lovenox 100mg Syringe) 90 mg Q12HR SQ Last administered on 22:25; Start 11/16/16 at 21:00; Stop 11/17/16 at 10:23; Status DC Gadobutrol (Gadavist) 7.5 mmol 1X ONCE IV Last administered on 11/17/16 10:52 ; Start 11/17/16 at 10:30; Stop 11/17/16 at 10:32; Status DC Oxycodone/ Acetaminophen (Percocet 7.5/ 325) 1 tab PRN Q6HRS PRN PO PAIN Last administered on 11/20/16 16:29; Start 11/18/16 at 08:45 Iohexol (Omnipaque 180 Mg/ml) 10 ml 1X ONCE IJ ; Start 11/18/16 at 09:15; Stop 11/18/16 at 09:16; Status DC Iohexol (Omnipaque 180 Mg/ml) 20 ml 1X ONCE IJ ; Start 11/18/16 at 09:15; Stop 11/18/16 at 09:16; Status DC Hydromorphone HCl (Dilaudid) 0.5 mg 1X ONCE IV Last administered on 11/18/16 10:00; Start 11/18/16 at 10:00; Stop 11/18/16 at 10:01; Status DC Oxycodone HCl (Oxycontin) 15 mg Q12HR PO Last administered on 11/19/16 07:57; Start 11/18/16 at 11:00; Stop 11/19/16 at 09:45; Status DC Hydromorphone HCl (Dilaudid) 0.4 mg PRN Q4HRS PRN IVP PAIN Last administered on 11/20/16 05:23; Start 11/18/16 at 10:15 Oxycodone HCl 20 mg 20 mg Q12HR PO Last administered on 11/20/16 08:33; Start 11/19/16 at 21:00 Amino Acids/ Glycerin/ Electrolytes (Procalamine) 1,000 ml @ 80 mls/hr [id number] IV Last administered on 11/20/16 16:27; Start 11/19/16 at 15:00 Prednisone (Prednisone) 60 mg DAILY PO Last administered on 11/20/16 13:08; Start 11/20/16 at 09:00 Active Scripts Active Bactrim Ds Tablet (Sulfamethoxazole/Trimethoprim) 1 Each Tablet 1 Tab PO BID Reported Senokot (Sennosides) 8.6 Mg Tablet 8.6 Mg PO BID Albuterol Sulfate Neb Soln (Albuterol Sulfate) 2.5 Mg/3 Ml Vial.neb 1 Vial NEB Q6HRS PRN Tylenol (Acetaminophen) 325 Mg Tablet 2 Tab PO Q6HRS PRN FENTANYL 75mcg/hr (Fentanyl) 1 Each Patch.td72 1 Patch TD Q72H Citalopram Hbr (Citalopram Hydrobromide) 20 Mg Tablet 1 Tab PO DAILY Furosemide 40 Mg Tablet 1 Tab PO DAILY Calcium 600 + Vit D 400 Softgl (Calcium Carbonate/Vitamin D3) 1 Each Capsule 600 Each PO DAILY Multi Vitamin Daily (Multivitamin) 1 Each Tablet 1 Each PO Finasteride 5 Mg Tablet 5 Mg PO DAILY Hydrocodone-Apap 10-325 (Hydrocodone Bit/Acetaminophen) 1 Each Tablet 1 Tab PO PRN Q6HRS PRN Hydroxyurea 500 Mg Capsule 1,000 Mg PO HS Pantoprazole Sodium 40 Mg Tablet.dr 40 Mg PO DAILY Carvedilol 3.125 Mg Tablet 3.125 Mg PO BIDWMEALS Levothyroxine Sodium 100 Mcg Tablet 100 Mcg PO DAILYAC Vitals/I & O Vital Sign - Last 24 Hours 11/19/16 11/19/16 11/19/16 11/19/16 17:56 18:26 19:00 20:13 Temp 97.5 97.5 Pulse 70 Resp 20 20 20 B/P 107/48 Pulse Ox 98 98 O2 Delivery Nasal Cannula Nasal Cannula Nasal Cannula O2 Flow Rate 2.0 3.0 3.0 11/19/16 11/19/16 11/19/16 11/19/16 20:28 20:52 23:00 23:25 Temp 99.5 99.5 Pulse 81 Resp 20 B/P 116/65 Pulse Ox 98 98 98 98 O2 Delivery Nasal Cannula Nasal Cannula Nasal Cannula Nasal Cannula O2 Flow Rate 3.0 3.0 3.0 3.0 11/19/16 11/20/16 11/20/16 11/20/16 23:25 03:03 05:22 05:23 Temp 99.5 99.5 Pulse 77 Resp 20 B/P 132/63 Pulse Ox 98 94 94 94 O2 Delivery Nasal Cannula Nasal Cannula Nasal Cannula Nasal Cannula O2 Flow Rate 3.0 3.0 3.0 3.0 11/20/16 11/20/16 11/20/16 11/20/16 06:04 06:15 07:00 07:53 Temp 98.5 98.5 Pulse 78 Resp 18 B/P 115/49 Pulse Ox 94 94 93 96 O2 Delivery Nasal Cannula Nasal Cannula Nasal Cannula O2 Flow Rate 3.0 3.0 2.0 11/20/16 11/20/16 11/20/16 11/20/16 08:00 08:00 08:33 11:00 Temp 98.5 98.5 Pulse 78 62 Resp 18 18 B/P 115/49 116/65 Pulse Ox 96 98 O2 Delivery Nasal Cannula Nasal Cannula O2 Flow Rate 2.0 11/20/16 11/20/16 11/20/16 11/20/16 12:33 12:43 15:00 16:28 Temp 96.8 96.8 Pulse 83 72 Resp 18 18 B/P 105/48 114/52 Pulse Ox 97 97 92 O2 Delivery Nasal Cannula Nasal Cannula O2 Flow Rate 2.0 2.0 11/20/16 11/20/16 16:29 16:33 Resp 16 Pulse Ox 92 95 O2 Delivery Nasal Cannula Nasal Cannula O2 Flow Rate 2.0 2.0 Intake and Output 11/19/16 11/19/16 11/20/16 15:00 23:00 07:00 Intake Total 240 ml 940 ml Output Total 2511 ml 450 ml Balance 240 ml -1571 ml -450 ml LYN ABBOTT MD Nov 20, 2016 17:39
--- NOTE | 2016-11-20 19:12 | PDOC2 ---
PALLIATIVE CARE Palliative Care Note Palliative Care Consult requested by Dr. Kuo to address goals of care Patient resting. Recently medicated for pain Spoke briefly with Daughter /DPOA Melanie. States her Dad is in better spirits with much less pain. Wants to get stronger--knows he will not be able to get back to previous level of functioning. Plan: Meeting tomorrow after visiting with patient and call to daughter. Daughter has been working with Tere HAYWARD on discharge Plan Code Status: DNR/DNI Outside the Hospital for signed. will need physician signature. ANANYA KENDALL Nov 20, 2016 19:12
[2016-11-20 19:58] VITALS: BP 119/56
[2016-11-20] MEDS: HYDROXYUREA 500 MG CAPSULE PO SCH (21:56)
[2016-11-20 23:55] VITALS: BP 119/65
[2016-11-21] MEDS: OXYCODONE/APAP 7.5/325 TABLET. PO PRN ×3 (03:52→18:45)
[2016-11-21] MEDS: HYDROMORPHONE 2 MG/ML VIAL. IVP PRN (03:53)
[2016-11-21] MEDS: AA 3%/ELECTROLYTE-TPN SOLN/GLY 1,000 ML IV SCH ×2 (03:54→18:45)
[2016-11-21 07:00] VITALS: BP 116/59
[2016-11-21] MEDS: ALBUTEROL SULFATE 2.5 MG/3 ML NEBU. NEB SCH ×4 (08:17→19:50)
--- NOTE | 2016-11-21 08:42 | PDOC ---
Provider Note Provider Note IR Note: Asked by Dr North to speak with Mr Downey about possible sacral vertebroplasty. Sacral vertebroplasty procedure, with benefits and risks, was discussed with Mr Downey at length. At this time, he continues to decline any additional procedures. CHINMAY TREADWELL MD Nov 21, 2016 08:42
[2016-11-21] MEDS: FUROSEMIDE 40 MG/4 ML VIAL IVP SCH (09:55)
[2016-11-21] MEDS: OXYCODONE ER 10 MG TAB.ER.12H. PO SCH ×2 (09:55→20:43)
[2016-11-21] MEDS: CALCIUM CARB/VIT D3 500/200 TABLET PO SCH (09:56)
[2016-11-21] MEDS: LEVOTHYROXINE 100 MCG TABLET PO SCH (09:56)
[2016-11-21] MEDS: PREDNISONE 20 MG TABLET PO SCH (09:56)
[2016-11-21] MEDS: CITALOPRAM 20 MG TABLET. PO SCH (09:57)
[2016-11-21] MEDS: SENNOSIDES 8.6 MG TABLET PO SCH ×2 (09:57→20:43)
[2016-11-21] MEDS: FINASTERIDE 5 MG TABLET PO SCH (09:57)
[2016-11-21] MEDS: PANTOPRAZOLE 40 MG TABLET. PO SCH (09:57)
[2016-11-21] MEDS: MULTIVITAMIN with MINERAL TABLET. PO SCH (09:57)
[2016-11-21] MEDS: CARVEDILOL 3.125 MG TABLET PO SCH ×2 (09:58→18:45)
--- NOTE | 2016-11-21 10:15 | PDOC2 ---
PALLIATIVE CARE Palliative Care Note Palliative Care Patient alert. Complain of back/hip pain. Improved with injection but remains severe at time. States he wants to get stronger. Adamant about no surgery. No Hospice Spoke with daughter. Plan SNU when discharged. Tere HAYWARD working with daughter on discharge plans DNR/DNI confirmed with patient. Plan: Continue current treatment plan ANANYA KENDALL Nov 21, 2016 10:15
--- NOTE | 2016-11-21 10:17 | PDOC ---
PROGRESS NOTES Subjective Subjective He admits some help with pain medicines but not interested in any procedures at this time. Objective Objective Vital Signs Date Time Temp Pulse Resp B/P Pulse Ox O2 Delivery O2 Flow Rate FiO2 11/21/16 09:58 76 116/59 11/21/16 09:56 18 99 Nasal Cannula 2.0 11/21/16 07:00 97.5 97.5 Intake and Output 11/21/16 07:00 Output Total 3400 ml Balance -3400 ml Output Urine Total 3400 ml # Bowel Movements 1 Physical Exam Physical Exam He is supine in bed and seems to in no acute distress.He is constipated. Assessment Assessment Problems Medical Problems: (1) Lumbar back pain Status: Acute Plan Plan of Care To SNF when medically stable for pain control as he is refusing to consider any procedures or even try back support brace and therapy. Comment Review of Relevant I have reviewed the following items michael (where applicable) has been applied. Labs Laboratory Tests Test 11/19/16 12:55 11/20/16 06:00 Urine Collection Type Unknown Urine Color Yellow Urine Clarity Clear Urine pH 6.5 Urine Specific [place] 1.010 Urine Protein Negativemg/dL (NEG-TRACE) Urine Glucose (UA) Negativemg/dL (NEG) Urine Ketones (Stick) Negativemg/dL (NEG) Urine Blood Negative (NEG) Urine Nitrite Negative (NEG) Urine Bilirubin Negative (NEG) Urine Urobilinogen Dipstick 0.2mg/dL (0.2 mg/dL) Urine Leukocyte Esterase Trace (NEG) Urine RBC 0/HPF (0-2) Urine WBC Occ/HPF (0-4) Urine Squamous Epithelial Cells Occ/LPF Urine Bacteria 0/HPF (0-FEW) Urine Hyaline Casts Occasional/HPF Urine Mucus Mod/LPF White Blood Count 2.1x10^3/uL (4.0-11.0) Red Blood Count 2.09x10^6/uL (4.30-5.70) Hemoglobin 7.9g/dL (13.0-17.5) Hematocrit 25.0% (39.0-53.0) Mean Corpuscular Volume 119fL (79-100) Mean Corpuscular Hemoglobin 38pg (25-35) Mean Corpuscular Hemoglobin Concent 32g/dL (31-37) Red Cell Distribution Width 29.7% (11.5-14.5) Platelet Count 424x10^3/uL (140-400) Neutrophils (%) (Auto) 67% (31-73) Lymphocytes (%) (Auto) 21% (24-48) Monocytes (%) (Auto) 10% (0-9) Eosinophils (%) (Auto) 1% (0-3) Basophils (%) (Auto) 1% (0-3) Neutrophils # (Auto) 1.4x10^3uL (1.8-7.7) Lymphocytes # (Auto) 0.4x10^3/uL (1.0-4.8) Monocytes # (Auto) 0.2x10^3/uL (0.0-1.1) Eosinophils # (Auto) 0.0x10^3/uL (0.0-0.7) Basophils # (Auto) 0.0x10^3/uL (0.0-0.2) Segmented Neutrophils % 64% (35-66) Band Neutrophils % 7% (0-9) Lymphocytes % 20% (24-48) Monocytes % 7% (0-10) Eosinophils % 1% (0-5) Myelocytes % 1% (0-0) Platelet Estimate Increased (ADEQUATE) Large Platelets Present Anisocytosis Slight Microcytosis Present Erythrocyte Sedimentation Rate 86 (0-15) Sodium Level 137mmol/L (136-145) Potassium Level 3.8mmol/L (3.5-5.1) Chloride Level 99mmol/L (98-107) Carbon Dioxide Level 35mmol/L (21-32) Anion Gap 3 (6-14) Blood Urea Nitrogen 16mg/dL (8-26) Creatinine 0.7mg/dL (0.7-1.3) Estimated GFR (Cockcroft-Gault) 106.4 BUN/Creatinine Ratio 23 (6-20) Glucose Level 103mg/dL (70-99) Calcium Level 7.9mg/dL (8.5-10.1) Total Bilirubin 0.6mg/dL (0.2-1.0) Aspartate Amino Transf (AST/SGOT) 19U/L (15-37) Alanine Aminotransferase (ALT/SGPT) 19U/L (16-63) Alkaline Phosphatase 61U/L (46-116) Total Protein 5.3g/dL (6.4-8.2) Albumin 2.0g/dL (3.4-5.0) Albumin/Globulin Ratio 0.6 (1.0-1.7) Microbiology 11/15/16 Blood Culture - Final, Complete NO GROWTH AFTER 5 DAYS 11/19/16 Urine Culture - Preliminary, Resulted 11/19/16 Urine Culture Result 1 (KEVIN) - Preliminary, Resulted Medications Current Medications Ondansetron HCl (Zofran) 4 mg PRN Q8HRS PRN IV NAUSEA/VOMITING Last administered on 11/14/16 22:44; Start 11/14/16 at 22:15; Stop 11/15/16 at 22:14; Status DC Fentanyl Citrate (Fentanyl 2ml Vial) 50 mcg PRN Q2HR PRN IV SEVERE PAIN Last administered on 11/14/16 22:46; Start 11/14/16 at 22:15; Stop 11/15/16 at 22:14; Status DC Acetaminophen (Tylenol) 650 mg PRN Q4HRS PRN PO FEVER; Start 11/14/16 at 22:15; Stop 11/15/16 at 22:14; Status DC Acetaminophen (Tylenol) 650 mg PRN Q6HRS PRN PO FEVER; Start 11/15/16 at 07:00 Albuterol Sulfate (Ventolin Neb Soln) 1 mg PRN Q6HRS PRN NEB SHORTNESS OF BREATH; Start 11/15/16 at 07:00 Carvedilol (Coreg) 3.125 mg BIDWMEALS PO Last administered on 11/21/16 09:58; Start 11/15/16 at 08:00 Citalopram Hydrobromide (Celexa) 20 mg DAILY PO Last administered on 11/21/16 09:57; Start 11/15/16 at 09:00 Fentanyl (Duragesic 75mcg/ Hr Patch) 1 patch Q72H TD Last administered on 11:04; Start 11/15/16 at 07:00; Stop 11/16/16 at 12:10; Status DC Finasteride (Proscar) 5 mg DAILY PO Last administered on 11/21/16 09:57; Start 11/15/16 at 09:00 Furosemide (Lasix) 40 mg DAILY PO Last administered on 11/15/16 11:06; Start at 09:00; Stop 11/16/16 at 17:42; Status DC Acetaminophen/ Hydrocodone Bitart (Lortab 10/325) 1 tab PRN Q6HRS PRN PO SEVERE PAIN Last administered on 11/18/16 03:37; Start 11/15/16 at 07:00; Stop 11/18/16 at 08:46; Status DC Hydroxyurea (Hydrea) 1,000 mg [id number] PO Last administered on 11/20/16 21 :56; Start 11/15/16 at 21:00 Levothyroxine Sodium (Synthroid) 100 mcg DAILYAC PO Last administered on 09:56; Start 11/15/16 at 07:30 Pantoprazole Sodium (Protonix) 40 mg DAILYAC PO Last administered on 11/21/16 09:57; Start 11/15/16 at 07:30 Sennosides (Senna) 8.6 mg BID PO Last administered on 11/21/16 09:57; Start at 09:00 Trimethoprim/ Sulfamethoxazole (Bactrim Ds) 1 tab BID PO Last administered on 11:30; Start 11/15/16 at 09:00; Stop 11/15/16 at 14:32; Status DC Calcium/Vitamin D (Oscal D 500mg/ 200uts) 1 tab DAILY PO Last administered on 09:56; Start 11/15/16 at 09:00 Multivitamins/ Calcium (Thera M Plus) 1 tab DAILY PO Last administered on 09:57; Start 11/15/16 at 09:00 Hydroxyurea (Hydrea) 1,500 mg QFRIDAY PO ; Start 11/21/16 at 21:00 Enoxaparin Sodium (Lovenox 40mg Syringe) 40 mg Q24H SQ Last administered on 11/16 13:51; Start 11/15/16 at 13:00; Stop 11/16/16 at 19:19; Status DC Albuterol Sulfate 2.5 mg 2.5 mg RTQID NEB Last administered on 11/21/16 08:17 ; Start 11/16/16 at 12:00 Dextrose/Lactated Ringer's (Iv D5%-Lr) 1,000 ml @ 75 mls/hr [id number] IV Last administered on 11/17/16 01:53; Start 11/16/16 at 12:00; Stop 11/17/16 at 17:02; Status DC Furosemide (Lasix) 40 mg DAILY IVP ; Start 11/17/16 at 21:00; Stop 11/17/16 at 21: 00; Status DC Furosemide (Lasix) 40 mg DAILY IVP Last administered on 11/21/16 09:55; Start 11/16/16 at 21:00 Enoxaparin Sodium (Lovenox 100mg Syringe) 90 mg Q12HR SQ Last administered on 22:25; Start 11/16/16 at 21:00; Stop 11/17/16 at 10:23; Status DC Gadobutrol (Gadavist) 7.5 mmol 1X ONCE IV Last administered on 11/17/16 10:52 ; Start 11/17/16 at 10:30; Stop 11/17/16 at 10:32; Status DC Oxycodone/ Acetaminophen (Percocet 7.5/ 325) 1 tab PRN Q6HRS PRN PO PAIN Last administered on 11/21/16 09:56; Start 11/18/16 at 08:45 Iohexol (Omnipaque 180 Mg/ml) 10 ml 1X ONCE IJ ; Start 11/18/16 at 09:15; Stop 11/18/16 at 09:16; Status DC Iohexol (Omnipaque 180 Mg/ml) 20 ml 1X ONCE IJ ; Start 11/18/16 at 09:15; Stop 11/18/16 at 09:16; Status DC Hydromorphone HCl (Dilaudid) 0.5 mg 1X ONCE IV Last administered on 11/18/16 10:00; Start 11/18/16 at 10:00; Stop 11/18/16 at 10:01; Status DC Oxycodone HCl (Oxycontin) 15 mg Q12HR PO Last administered on 11/19/16 07:57; Start 11/18/16 at 11:00; Stop 11/19/16 at 09:45; Status DC Hydromorphone HCl (Dilaudid) 0.4 mg PRN Q4HRS PRN IVP PAIN Last administered on 11/21/16 03:53; Start 11/18/16 at 10:15 Oxycodone HCl 20 mg 20 mg Q12HR PO Last administered on 11/21/16 09:55; Start 11/19/16 at 21:00 Amino Acids/ Glycerin/ Electrolytes (Procalamine) 1,000 ml @ 80 mls/hr [id number] IV Last administered on 11/21/16 03:54; Start 11/19/16 at 15:00 Prednisone (Prednisone) 60 mg DAILY PO Last administered on 11/21/16 09:56; Start 11/20/16 at 09:00 Active Scripts Active Bactrim Ds Tablet (Sulfamethoxazole/Trimethoprim) 1 Each Tablet 1 Tab PO BID Reported Senokot (Sennosides) 8.6 Mg Tablet 8.6 Mg PO BID Albuterol Sulfate Neb Soln (Albuterol Sulfate) 2.5 Mg/3 Ml Vial.neb 1 Vial NEB Q6HRS PRN Tylenol (Acetaminophen) 325 Mg Tablet 2 Tab PO Q6HRS PRN FENTANYL 75mcg/hr (Fentanyl) 1 Each Patch.td72 1 Patch TD Q72H Citalopram Hbr (Citalopram Hydrobromide) 20 Mg Tablet 1 Tab PO DAILY Furosemide 40 Mg Tablet 1 Tab PO DAILY Calcium 600 + Vit D 400 Softgl (Calcium Carbonate/Vitamin D3) 1 Each Capsule 600 Each PO DAILY Multi Vitamin Daily (Multivitamin) 1 Each Tablet 1 Each PO Finasteride 5 Mg Tablet 5 Mg PO DAILY Hydrocodone-Apap 10-325 (Hydrocodone Bit/Acetaminophen) 1 Each Tablet 1 Tab PO PRN Q6HRS PRN Hydroxyurea 500 Mg Capsule 1,000 Mg PO HS Pantoprazole Sodium 40 Mg Tablet.dr 40 Mg PO DAILY Carvedilol 3.125 Mg Tablet 3.125 Mg PO BIDWMEALS Levothyroxine Sodium 100 Mcg Tablet 100 Mcg PO DAILYAC Vitals/I & O Vital Sign - Last 24 Hours 11/20/16 11/20/16 11/20/16 11/20/16 11:00 12:33 12:43 15:00 Temp 98.5 96.8 98.5 96.8 Pulse 62 83 Resp 18 18 18 B/P 116/65 105/48 Pulse Ox 98 97 92 O2 Delivery Nasal Cannula O2 Flow Rate 2.0 11/20/16 11/20/16 11/20/16 11/20/16 16:28 16:29 16:33 17:43 Pulse 72 Resp 16 16 B/P 114/52 Pulse Ox 92 95 95 O2 Delivery Nasal Cannula Nasal Cannula Nasal Cannula O2 Flow Rate 2.0 2.0 2.0 11/20/16 11/20/16 11/20/16 11/20/16 17:52 18:32 19:58 20:00 Temp 97.9 97.9 Pulse 81 Resp 16 16 20 B/P 119/56 Pulse Ox 97 O2 Delivery Nasal Cannula Nasal Cannula O2 Flow Rate 3.0 2.0 11/20/16 11/20/16 11/20/16 11/21/16 21:49 21:51 23:55 02:07 Temp 97.5 97.5 Pulse 81 Resp 16 18 B/P 119/65 Pulse Ox 97 97 95 95 O2 Delivery Room Air Room Air Nasal Cannula Nasal Cannula O2 Flow Rate 3.0 3.0 11/21/16 11/21/16 11/21/16 11/21/16 03:12 03:52 03:53 04:29 Resp 15 Pulse Ox 95 95 95 O2 Delivery Nasal Cannula Nasal Cannula Nasal Cannula O2 Flow Rate 3.0 3.0 3.0 11/21/16 11/21/16 11/21/16 11/21/16 05:01 07:00 08:18 09:55 Temp 97.5 97.5 Pulse 76 Resp 18 18 B/P 116/59 Pulse Ox 95 95 99 99 O2 Delivery Nasal Cannula Nasal Cannula Nasal Cannula Nasal Cannula O2 Flow Rate 3.0 3.0 2.0 2.0 11/21/16 11/21/16 09:56 09:58 Pulse 76 Resp 18 B/P 116/59 Pulse Ox 99 O2 Delivery Nasal Cannula O2 Flow Rate 2.0 Intake and Output 11/20/16 11/20/16 11/21/16 15:00 23:00 07:00 Output Total 1600 ml 650 ml 1150 ml Balance -1600 ml -650 ml -1150 ml LYN ABBOTT MD Nov 21, 2016 10:17
[2016-11-21] MEDS ORDERED: MAGNESIUM CITRATE 296 ML SOLUTION. PO PRN (10:45)
[2016-11-21] MEDS ORDERED: MINERAL OIL 133 ML ENEMA. PR ONE (10:45)
[2016-11-21] MEDS ORDERED: BISACODYL 10 MG SUPP.RECT PR PRN (10:45)
[2016-11-21 11:00] VITALS: BP 114/62
--- NOTE | 2016-11-21 16:59 | PDOC ---
PROGRESS NOTES Subjective Subjective Working on disposition as he is refusing interventions and in too much pain for therapy but Dr. North has recommended SNF and family wanting to go to [place]. Jones remains in place. IV Procalamine ongoing as his nutrition is poor, left heel less tender and swelling improved, constipated but needing large quantities of narcotics Objective Objective Vital Signs Date Time Temp Pulse Resp B/P Pulse Ox O2 Delivery O2 Flow Rate FiO2 11/21/16 16:08 98 Nasal Cannula 2.0 11/21/16 15:00 18 11/21/16 11:00 97.5 61 114/62 97.5 Intake and Output 11/21/16 07:00 Output Total 3400 ml Balance -3400 ml Output Urine Total 3400 ml # Bowel Movements 1 Physical Exam Abdomen: Soft, Other (not distended, bowel sounds present) Heart: Regular rate Extremities: No clubbing, No cyanosis, Other (minimal edema of feet) General: Alert, Oriented X3, Cooperative, mild distress HEENT: Atraumatic Lungs: Clear to auscultation MUSCULOSKELETAL: Other (less redness and tenderness in left heel, able to lift legs better today with less pain) Neck: Supple Neuro: Normal speech Psych/Mental Status: Mental status NL Skin: Other (wound care following for heel ulcer) Assessment Assessment Problems Medical Problems: (1) Lumbar back pain with subdural lumbar fluid collection, limiting mobility, initial fall 08/2016 precipitant cause, bone scan showing subacute sacral insufficiency fracture but pt refuses IR intervention. (2) left hip pain - limiting mobility - improving ?due to steroids (3) urinary retention with hx of BPH -new condition, now requiring Jones, UA unremarkable (4) recent UTI, MRSA - completed course of Bactrim (5) moderately severe protein malnutrition - with pleural fluid and anasarca, started Procalamine, encourage Boost tid and assist with feeding (6) aortic stenosis/ CAD - stable (7) right heel pressure ulcer - wound care treating (8) anemia - chronic, stable after transfusion of 1 unit pRBC, mild recent drop likely dilutional due to Procalamine (9) atelectasis/COPD - continue neb tx (10) encephalopathy - resolved, was due to pain meds and anemia (11) superficial thrombus left leg with elevated D-dimer, will resume lovenox (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 Labs Laboratory Tests Test 11/20/16 06:00 White Blood Count 2.1x10^3/uL (4.0-11.0) Red Blood Count 2.09x10^6/uL (4.30-5.70) Hemoglobin 7.9g/dL (13.0-17.5) Hematocrit 25.0% (39.0-53.0) Mean Corpuscular Volume 119fL (79-100) Mean Corpuscular Hemoglobin 38pg (25-35) Mean Corpuscular Hemoglobin Concent 32g/dL (31-37) Red Cell Distribution Width 29.7% (11.5-14.5) Platelet Count 424x10^3/uL (140-400) Neutrophils (%) (Auto) 67% (31-73) Lymphocytes (%) (Auto) 21% (24-48) Monocytes (%) (Auto) 10% (0-9) Eosinophils (%) (Auto) 1% (0-3) Basophils (%) (Auto) 1% (0-3) Neutrophils # (Auto) 1.4x10^3uL (1.8-7.7) Lymphocytes # (Auto) 0.4x10^3/uL (1.0-4.8) Monocytes # (Auto) 0.2x10^3/uL (0.0-1.1) Eosinophils # (Auto) 0.0x10^3/uL (0.0-0.7) Basophils # (Auto) 0.0x10^3/uL (0.0-0.2) Segmented Neutrophils % 64% (35-66) Band Neutrophils % 7% (0-9) Lymphocytes % 20% (24-48) Monocytes % 7% (0-10) Eosinophils % 1% (0-5) Myelocytes % 1% (0-0) Platelet Estimate Increased (ADEQUATE) Large Platelets Present Anisocytosis Slight Microcytosis Present Erythrocyte Sedimentation Rate 86 (0-15) Sodium Level 137mmol/L (136-145) Potassium Level 3.8mmol/L (3.5-5.1) Chloride Level 99mmol/L (98-107) Carbon Dioxide Level 35mmol/L (21-32) Anion Gap 3 (6-14) Blood Urea Nitrogen 16mg/dL (8-26) Creatinine 0.7mg/dL (0.7-1.3) Estimated GFR (Cockcroft-Gault) 106.4 BUN/Creatinine Ratio 23 (6-20) Glucose Level 103mg/dL (70-99) Calcium Level 7.9mg/dL (8.5-10.1) Total Bilirubin 0.6mg/dL (0.2-1.0) Aspartate Amino Transf (AST/SGOT) 19U/L (15-37) Alanine Aminotransferase (ALT/SGPT) 19U/L (16-63) Alkaline Phosphatase 61U/L (46-116) Total Protein 5.3g/dL (6.4-8.2) Albumin 2.0g/dL (3.4-5.0) Albumin/Globulin Ratio 0.6 (1.0-1.7) Microbiology 11/15/16 Blood Culture - Final, Complete NO GROWTH AFTER 5 DAYS 11/19/16 Urine Culture - Final, Complete 11/19/16 Urine Culture Result 1 (KEVIN) - Final, Complete Medications Current Medications Ondansetron HCl (Zofran) 4 mg PRN Q8HRS PRN IV NAUSEA/VOMITING Last administered on 11/14/16 22:44; Start 11/14/16 at 22:15; Stop 11/15/16 at 22:14; Status DC Fentanyl Citrate (Fentanyl 2ml Vial) 50 mcg PRN Q2HR PRN IV SEVERE PAIN Last administered on 11/14/16 22:46; Start 11/14/16 at 22:15; Stop 11/15/16 at 22:14; Status DC Acetaminophen (Tylenol) 650 mg PRN Q4HRS PRN PO FEVER; Start 11/14/16 at 22:15; Stop 11/15/16 at 22:14; Status DC Acetaminophen (Tylenol) 650 mg PRN Q6HRS PRN PO FEVER; Start 11/15/16 at 07:00 Albuterol Sulfate (Ventolin Neb Soln) 1 mg PRN Q6HRS PRN NEB SHORTNESS OF BREATH; Start 11/15/16 at 07:00 Carvedilol (Coreg) 3.125 mg BIDWMEALS PO Last administered on 11/21/16 09:58; Start 11/15/16 at 08:00 Citalopram Hydrobromide (Celexa) 20 mg DAILY PO Last administered on 11/21/16 09:57; Start 11/15/16 at 09:00 Fentanyl (Duragesic 75mcg/ Hr Patch) 1 patch Q72H TD Last administered on 11:04; Start 11/15/16 at 07:00; Stop 11/16/16 at 12:10; Status DC Finasteride (Proscar) 5 mg DAILY PO Last administered on 11/21/16 09:57; Start 11/15/16 at 09:00 Furosemide (Lasix) 40 mg DAILY PO Last administered on 11/15/16 11:06; Start at 09:00; Stop 11/16/16 at 17:42; Status DC Acetaminophen/ Hydrocodone Bitart (Lortab 10/325) 1 tab PRN Q6HRS PRN PO SEVERE PAIN Last administered on 11/18/16 03:37; Start 11/15/16 at 07:00; Stop 11/18/16 at 08:46; Status DC Hydroxyurea (Hydrea) 1,000 mg [id number] PO Last administered on 11/20/16 21 :56; Start 11/15/16 at 21:00 Levothyroxine Sodium (Synthroid) 100 mcg DAILYAC PO Last administered on 09:56; Start 11/15/16 at 07:30 Pantoprazole Sodium (Protonix) 40 mg DAILYAC PO Last administered on 11/21/16 09:57; Start 11/15/16 at 07:30 Sennosides (Senna) 8.6 mg BID PO Last administered on 11/21/16 09:57; Start at 09:00 Trimethoprim/ Sulfamethoxazole (Bactrim Ds) 1 tab BID PO Last administered on 11:30; Start 11/15/16 at 09:00; Stop 11/15/16 at 14:32; Status DC Calcium/Vitamin D (Oscal D 500mg/ 200uts) 1 tab DAILY PO Last administered on 09:56; Start 11/15/16 at 09:00 Multivitamins/ Calcium (Thera M Plus) 1 tab DAILY PO Last administered on 09:57; Start 11/15/16 at 09:00 Hydroxyurea (Hydrea) 1,500 mg QFRIDAY PO ; Start 11/21/16 at 21:00 Enoxaparin Sodium (Lovenox 40mg Syringe) 40 mg Q24H SQ Last administered on 11/16 13:51; Start 11/15/16 at 13:00; Stop 11/16/16 at 19:19; Status DC Albuterol Sulfate 2.5 mg 2.5 mg RTQID NEB Last administered on 11/21/16 16:06 ; Start 11/16/16 at 12:00 Dextrose/Lactated Ringer's (Iv D5%-Lr) 1,000 ml @ 75 mls/hr [id number] IV Last administered on 11/17/16 01:53; Start 11/16/16 at 12:00; Stop 11/17/16 at 17:02; Status DC Furosemide (Lasix) 40 mg DAILY IVP ; Start 11/17/16 at 21:00; Stop 11/17/16 at 21: 00; Status DC Furosemide (Lasix) 40 mg DAILY IVP Last administered on 11/21/16 09:55; Start 11/16/16 at 21:00 Enoxaparin Sodium (Lovenox 100mg Syringe) 90 mg Q12HR SQ Last administered on 22:25; Start 11/16/16 at 21:00; Stop 11/17/16 at 10:23; Status DC Gadobutrol (Gadavist) 7.5 mmol 1X ONCE IV Last administered on 11/17/16 10:52 ; Start 11/17/16 at 10:30; Stop 11/17/16 at 10:32; Status DC Oxycodone/ Acetaminophen (Percocet 7.5/ 325) 1 tab PRN Q6HRS PRN PO PAIN Last administered on 11/21/16 09:56; Start 11/18/16 at 08:45 Iohexol (Omnipaque 180 Mg/ml) 10 ml 1X ONCE IJ ; Start 11/18/16 at 09:15; Stop 11/18/16 at 09:16; Status DC Iohexol (Omnipaque 180 Mg/ml) 20 ml 1X ONCE IJ ; Start 11/18/16 at 09:15; Stop 11/18/16 at 09:16; Status DC Hydromorphone HCl (Dilaudid) 0.5 mg 1X ONCE IV Last administered on 11/18/16 10:00; Start 11/18/16 at 10:00; Stop 11/18/16 at 10:01; Status DC Oxycodone HCl (Oxycontin) 15 mg Q12HR PO Last administered on 11/19/16 07:57; Start 11/18/16 at 11:00; Stop 11/19/16 at 09:45; Status DC Hydromorphone HCl (Dilaudid) 0.4 mg PRN Q4HRS PRN IVP PAIN Last administered on 11/21/16 03:53; Start 11/18/16 at 10:15 Oxycodone HCl 20 mg 20 mg Q12HR PO Last administered on 11/21/16 09:55; Start 11/19/16 at 21:00 Amino Acids/ Glycerin/ Electrolytes (Procalamine) 1,000 ml @ 80 mls/hr [id number] IV Last administered on 11/21/16 03:54; Start 11/19/16 at 15:00 Prednisone (Prednisone) 60 mg DAILY PO Last administered on 11/21/16 09:56; Start 11/20/16 at 09:00 Bisacodyl (Dulcolax Supp) 10 mg PRN DAILY PRN [place] CONSTIPATION Last administered on 11/21/16 13:11; Start 11/21/16 at 10:45 Mineral Oil (Fleet Mineral Oil) 133 ml 1X ONCE ND ; Start 11/21/16 at 10:45; Stop 11/21/16 at 10:48; Status DC Magnesium Citrate (Citroma) 296 ml PRN 1X PRN PO CONSTIPATION; Start 11/21/16 at 10:45 Active Scripts Active Bactrim Ds Tablet (Sulfamethoxazole/Trimethoprim) 1 Each Tablet 1 Tab PO BID Reported Senokot (Sennosides) 8.6 Mg Tablet 8.6 Mg PO BID Albuterol Sulfate Neb Soln (Albuterol Sulfate) 2.5 Mg/3 Ml Vial.neb 1 Vial NEB Q6HRS PRN Tylenol (Acetaminophen) 325 Mg Tablet 2 Tab PO Q6HRS PRN FENTANYL 75mcg/hr (Fentanyl) 1 Each Patch.td72 1 Patch TD Q72H Citalopram Hbr (Citalopram Hydrobromide) 20 Mg Tablet 1 Tab PO DAILY Furosemide 40 Mg Tablet 1 Tab PO DAILY Calcium 600 + Vit D 400 Softgl (Calcium Carbonate/Vitamin D3) 1 Each Capsule 600 Each PO DAILY Multi Vitamin Daily (Multivitamin) 1 Each Tablet 1 Each PO Finasteride 5 Mg Tablet 5 Mg PO DAILY Hydrocodone-Apap 10-325 (Hydrocodone Bit/Acetaminophen) 1 Each Tablet 1 Tab PO PRN Q6HRS PRN Hydroxyurea 500 Mg Capsule 1,000 Mg PO HS Pantoprazole Sodium 40 Mg Tablet.dr 40 Mg PO DAILY Carvedilol 3.125 Mg Tablet 3.125 Mg PO BIDWMEALS Levothyroxine Sodium 100 Mcg Tablet 100 Mcg PO DAILYAC Vitals/I & O Vital Sign - Last 24 Hours 11/20/16 11/20/16 11/20/16 11/20/16 17:43 18:32 19:58 20:00 Temp 97.9 97.9 Pulse 81 Resp 16 16 20 B/P 119/56 Pulse Ox 95 97 O2 Delivery Nasal Cannula Nasal Cannula Nasal Cannula O2 Flow Rate 2.0 3.0 2.0 11/20/16 11/20/16 11/20/16 11/21/16 21:49 21:51 23:55 03:12 Temp 97.5 97.5 Pulse 81 Resp 16 18 15 B/P 119/65 Pulse Ox 97 97 95 O2 Delivery Room Air Room Air Nasal Cannula O2 Flow Rate 3.0 11/21/16 11/21/16 11/21/16 11/21/16 03:52 03:53 04:29 07:00 Temp 97.5 97.5 Pulse 76 Resp 18 B/P 116/59 Pulse Ox 95 95 95 95 O2 Delivery Nasal Cannula Nasal Cannula Nasal Cannula Nasal Cannula O2 Flow Rate 3.0 3.0 3.0 3.0 11/21/16 11/21/16 11/21/16 11/21/16 08:00 08:18 09:55 09:56 Resp 18 18 Pulse Ox 99 99 99 O2 Delivery Nasal Cannula Nasal Cannula Nasal Cannula Nasal Cannula O2 Flow Rate 2.0 2.0 2.0 2.0 11/21/16 11/21/16 11/21/16 11/21/16 09:58 10:56 11:00 12:40 Temp 97.5 97.5 Pulse 76 61 Resp 17 18 B/P 116/59 114/62 Pulse Ox 95 95 O2 Delivery Nasal Cannula Nasal Cannula Nasal Cannula O2 Flow Rate 2.0 3.0 2.0 11/21/16 11/21/16 11/21/16 13:55 15:00 16:08 Resp 18 18 Pulse Ox 95 98 O2 Delivery Nasal Cannula Nasal Cannula O2 Flow Rate 2.0 2.0 Intake and Output 11/20/16 11/20/16 11/21/16 15:00 23:00 07:00 Output Total 1600 ml 650 ml 1150 ml Balance -1600 ml -650 ml -1150 ml Savana MORENO MD Nov 21, 2016 16:59
[2016-11-21 19:47] VITALS: BP 103/59
[2016-11-21] MEDS: ENOXAPARIN 40 MG/0.4 ML DISP.SYRIN. SQ SCH (20:44)
[2016-11-21] MEDS ORDERED: HYDROXYUREA 500 MG CAPSULE PO SCH (21:00)
[2016-11-21 23:16] VITALS: BP 96/52
[2016-11-22] MEDS: HYDROMORPHONE 2 MG/ML VIAL. IVP PRN (00:38)
[2016-11-22] MEDS: OXYCODONE/APAP 7.5/325 TABLET. PO PRN ×3 (00:38→18:30)
[2016-11-22 07:00] VITALS: BP 120/56
[2016-11-22] MEDS: ALBUTEROL SULFATE 2.5 MG/3 ML NEBU. NEB SCH ×3 (08:09→16:18)
[2016-11-22] MEDS ORDERED: PREDNISONE 20 MG TABLET PO ONE (09:00)
--- NOTE | 2016-11-22 09:36 | PDOC ---
PROGRESS NOTES Subjective Subjective Patient feeling better. Patient has agreed to sacroplasty. planned for Thursday. . Good BM yesterday. Steroids decreased today. Objective Objective Vital Signs Date Time Temp Pulse Resp B/P Pulse Ox O2 Delivery O2 Flow Rate FiO2 11/22/16 08:11 100 Nasal Cannula 2.0 11/22/16 07:00 98.5 72 18 120/56 98.5 Intake and Output 11/22/16 07:00 Intake Total 710 ml Output Total 3950 ml Balance -3240 ml Intake Oral 710 ml Output Urine Total 3950 ml # Bowel Movements 1 Physical Exam Abdomen: Normal bowel sounds Heart: Regular rate Extremities: Other (3+ edema) General: Alert Lungs: Clear to auscultation Assessment Assessment Problems Medical Problems: (1) Lumbar back pain Status: Acute (1) Lumbar back pain with subdural lumbar fluid collection, limiting mobility, initial fall 08/2016 precipitant cause, bone scan showing subacute sacral insufficiency fracture but pt refuses IR intervention initially now patient agrees to sarcoplasty. (2) left hip pain - limiting mobility - improving ?due to steroids (3) urinary retention with hx of BPH -new condition, now requiring Jones, UA unremarkable (4) recent UTI, MRSA - completed course of Bactrim (5) moderately severe protein malnutrition - with pleural fluid and anasarca, started Procalamine, encourage Boost tid and assist with feeding (6) aortic stenosis/ CAD - stable (7) right heel pressure ulcer - wound care treating (8) anemia - chronic, stable after transfusion of 1 unit pRBC, mild recent drop likely dilutional due to Procalamine (9) atelectasis/COPD - continue neb tx (10) encephalopathy - resolved, was due to pain meds and anemia (11) superficial thrombus left leg with elevated D-dimer, will resume lovenox (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 North, Await sacroplasty then proceed with pt/ot and SNU transfer good BM yesterday Comment Review of Relevant I have reviewed the following items michael (where applicable) has been applied. Labs Microbiology 11/15/16 Blood Culture - Final, Complete NO GROWTH AFTER 5 DAYS 11/19/16 Urine Culture - Final, Complete 11/19/16 Urine Culture Result 1 (KEVIN) - Final, Complete Medications Current Medications Ondansetron HCl (Zofran) 4 mg PRN Q8HRS PRN IV NAUSEA/VOMITING Last administered on 11/14/16 22:44; Start 11/14/16 at 22:15; Stop 11/15/16 at 22:14; Status DC Fentanyl Citrate (Fentanyl 2ml Vial) 50 mcg PRN Q2HR PRN IV SEVERE PAIN Last administered on 11/14/16 22:46; Start 11/14/16 at 22:15; Stop 11/15/16 at 22:14; Status DC Acetaminophen (Tylenol) 650 mg PRN Q4HRS PRN PO FEVER; Start 11/14/16 at 22:15; Stop 11/15/16 at 22:14; Status DC Acetaminophen (Tylenol) 650 mg PRN Q6HRS PRN PO FEVER; Start 11/15/16 at 07:00 Albuterol Sulfate (Ventolin Neb Soln) 1 mg PRN Q6HRS PRN NEB SHORTNESS OF BREATH; Start 11/15/16 at 07:00 Carvedilol (Coreg) 3.125 mg BIDWMEALS PO Last administered on 11/21/16 18:45; Start 11/15/16 at 08:00 Citalopram Hydrobromide (Celexa) 20 mg DAILY PO Last administered on 11/21/16 09:57; Start 11/15/16 at 09:00 Fentanyl (Duragesic 75mcg/ Hr Patch) 1 patch Q72H TD Last administered on 11:04; Start 11/15/16 at 07:00; Stop 11/16/16 at 12:10; Status DC Finasteride (Proscar) 5 mg DAILY PO Last administered on 11/21/16 09:57; Start 11/15/16 at 09:00 Furosemide (Lasix) 40 mg DAILY PO Last administered on 11/15/16 11:06; Start at 09:00; Stop 11/16/16 at 17:42; Status DC Acetaminophen/ Hydrocodone Bitart (Lortab 10/325) 1 tab PRN Q6HRS PRN PO SEVERE PAIN Last administered on 11/18/16 03:37; Start 11/15/16 at 07:00; Stop 11/18/16 at 08:46; Status DC Hydroxyurea (Hydrea) 1,000 mg SuMoTuWeThSa PO Last administered on 11/20/16 21 :56; Start 11/15/16 at 21:00 Levothyroxine Sodium (Synthroid) 100 mcg DAILYAC PO Last administered on 09:56; Start 11/15/16 at 07:30 Pantoprazole Sodium (Protonix) 40 mg DAILYAC PO Last administered on 11/21/16 09:57; Start 11/15/16 at 07:30 Sennosides (Senna) 8.6 mg BID PO Last administered on 11/21/16 20:43; Start at 09:00 Trimethoprim/ Sulfamethoxazole (Bactrim Ds) 1 tab BID PO Last administered on 11:30; Start 11/15/16 at 09:00; Stop 11/15/16 at 14:32; Status DC Calcium/Vitamin D (Oscal D 500mg/ 200uts) 1 tab DAILY PO Last administered on 09:56; Start 11/15/16 at 09:00 Multivitamins/ Calcium (Thera M Plus) 1 tab DAILY PO Last administered on 09:57; Start 11/15/16 at 09:00 Hydroxyurea (Hydrea) 1,500 mg QFRIDAY PO ; Start 11/21/16 at 21:00 Enoxaparin Sodium (Lovenox 40mg Syringe) 40 mg Q24H SQ Last administered on 11/16 13:51; Start 11/15/16 at 13:00; Stop 11/16/16 at 19:19; Status DC Albuterol Sulfate 2.5 mg 2.5 mg RTQID NEB Last administered on 11/22/16 08:09 ; Start 11/16/16 at 12:00 Dextrose/Lactated Ringer's (Iv D5%-Lr) 1,000 ml @ 75 mls/hr [id number] IV Last administered on 11/17/16 01:53; Start 11/16/16 at 12:00; Stop 11/17/16 at 17:02; Status DC Furosemide (Lasix) 40 mg DAILY IVP ; Start 11/17/16 at 21:00; Stop 11/17/16 at 21: 00; Status DC Furosemide (Lasix) 40 mg DAILY IVP Last administered on 11/21/16 09:55; Start 11/16/16 at 21:00 Enoxaparin Sodium (Lovenox 100mg Syringe) 90 mg Q12HR SQ Last administered on 22:25; Start 11/16/16 at 21:00; Stop 11/17/16 at 10:23; Status DC Gadobutrol (Gadavist) 7.5 mmol 1X ONCE IV Last administered on 11/17/16 10:52 ; Start 11/17/16 at 10:30; Stop 11/17/16 at 10:32; Status DC Oxycodone/ Acetaminophen (Percocet 7.5/ 325) 1 tab PRN Q6HRS PRN PO PAIN Last administered on 11/22/16 00:38; Start 11/18/16 at 08:45 Iohexol (Omnipaque 180 Mg/ml) 10 ml 1X ONCE IJ ; Start 11/18/16 at 09:15; Stop 11/18/16 at 09:16; Status DC Iohexol (Omnipaque 180 Mg/ml) 20 ml 1X ONCE IJ ; Start 11/18/16 at 09:15; Stop 11/18/16 at 09:16; Status DC Hydromorphone HCl (Dilaudid) 0.5 mg 1X ONCE IV Last administered on 11/18/16 10:00; Start 11/18/16 at 10:00; Stop 11/18/16 at 10:01; Status DC Oxycodone HCl (Oxycontin) 15 mg Q12HR PO Last administered on 11/19/16 07:57; Start 11/18/16 at 11:00; Stop 11/19/16 at 09:45; Status DC Hydromorphone HCl (Dilaudid) 0.4 mg PRN Q4HRS PRN IVP PAIN Last administered on 11/22/16 00:38; Start 11/18/16 at 10:15 Oxycodone HCl 20 mg 20 mg Q12HR PO Last administered on 11/21/16 20:43; Start 11/19/16 at 21:00 Amino Acids/ Glycerin/ Electrolytes (Procalamine) 1,000 ml @ 80 mls/hr [id number] IV Last administered on 11/21/16 18:45; Start 11/19/16 at 15:00 Prednisone (Prednisone) 60 mg DAILY PO Last administered on 11/21/16 09:56; Start 11/20/16 at 09:00; Stop 11/22/16 at 08:56; Status DC Bisacodyl (Dulcolax Supp) 10 mg PRN DAILY PRN [place] CONSTIPATION Last administered on 11/21/16 13:11; Start 11/21/16 at 10:45 Mineral Oil (Fleet Mineral Oil) 133 ml 1X ONCE IA ; Start 11/21/16 at 10:45; Stop 11/21/16 at 10:48; Status DC Magnesium Citrate (Citroma) 296 ml PRN 1X PRN PO CONSTIPATION; Start 11/21/16 at 10:45 Enoxaparin Sodium (Lovenox 40mg Syringe) 40 mg Q24H SQ ; Start 11/21/16 at 21:00 Prednisone (Prednisone) 50 mg 1X ONCE PO ; Start 11/22/16 at 09:00; Stop at 09:01; Status DC Active Scripts Active Bactrim Ds Tablet (Sulfamethoxazole/Trimethoprim) 1 Each Tablet 1 Tab PO BID Reported Senokot (Sennosides) 8.6 Mg Tablet 8.6 Mg PO BID Albuterol Sulfate Neb Soln (Albuterol Sulfate) 2.5 Mg/3 Ml Vial.neb 1 Vial NEB Q6HRS PRN Tylenol (Acetaminophen) 325 Mg Tablet 2 Tab PO Q6HRS PRN FENTANYL 75mcg/hr (Fentanyl) 1 Each Patch.td72 1 Patch TD Q72H Citalopram Hbr (Citalopram Hydrobromide) 20 Mg Tablet 1 Tab PO DAILY Furosemide 40 Mg Tablet 1 Tab PO DAILY Calcium 600 + Vit D 400 Softgl (Calcium Carbonate/Vitamin D3) 1 Each Capsule 600 Each PO DAILY Multi Vitamin Daily (Multivitamin) 1 Each Tablet 1 Each PO Finasteride 5 Mg Tablet 5 Mg PO DAILY Hydrocodone-Apap 10-325 (Hydrocodone Bit/Acetaminophen) 1 Each Tablet 1 Tab PO PRN Q6HRS PRN Hydroxyurea 500 Mg Capsule 1,000 Mg PO HS Pantoprazole Sodium 40 Mg Tablet.dr 40 Mg PO DAILY Carvedilol 3.125 Mg Tablet 3.125 Mg PO BIDWMEALS Levothyroxine Sodium 100 Mcg Tablet 100 Mcg PO DAILYAC Vitals/I & O Vital Sign - Last 24 Hours 11/21/16 11/21/16 11/21/16 11/21/16 09:55 09:56 09:58 10:56 Pulse 76 Resp 18 18 17 B/P 116/59 Pulse Ox 99 99 O2 Delivery Nasal Cannula Nasal Cannula O2 Flow Rate 2.0 2.0 11/21/16 11/21/16 11/21/16 11/21/16 11:00 12:40 13:55 15:00 Temp 97.5 97.5 Pulse 61 Resp 18 18 18 B/P 114/62 Pulse Ox 95 O2 Delivery Nasal Cannula Nasal Cannula O2 Flow Rate 3.0 2.0 11/21/16 11/21/16 11/21/16 11/21/16 16:08 18:45 18:45 19:47 Temp 98.4 98.4 Pulse 61 88 Resp 18 16 B/P 114/62 103/59 Pulse Ox 98 98 96 O2 Delivery Nasal Cannula Nasal Cannula Nasal Cannula O2 Flow Rate 2.0 2.0 2.0 11/21/16 11/21/16 11/21/16 11/21/16 19:52 20:32 20:43 23:16 Temp 98.3 98.3 Pulse 80 Resp 18 B/P 96/52 Pulse Ox 96 96 98 O2 Delivery Nasal Cannula Nasal Cannula Nasal Cannula Nasal Cannula O2 Flow Rate 2.0 2.0 2.0 11/22/16 11/22/16 11/22/16 11/22/16 00:38 00:38 00:45 01:10 Pulse Ox 98 98 98 98 O2 Delivery Nasal Cannula Nasal Cannula Nasal Cannula Nasal Cannula O2 Flow Rate 2.0 2.0 2.0 2.0 11/22/16 11/22/16 11/22/16 11/22/16 01:42 03:45 07:00 08:11 Temp 98.5 98.5 Pulse 72 Resp 18 18 B/P 120/56 Pulse Ox 98 95 100 O2 Delivery Nasal Cannula Nasal Cannula Nasal Cannula O2 Flow Rate 2.0 2.0 2.0 Intake and Output 11/21/16 11/21/16 11/22/16 15:00 23:00 07:00 Intake Total 500 ml 210 ml Output Total 2200 ml 1750 ml Balance -1700 ml -1540 ml AMADEO MENDEZ MD Nov 22, 2016 09:36
[2016-11-22] MEDS: AA 3%/ELECTROLYTE-TPN SOLN/GLY 1,000 ML IV SCH ×2 (09:37→21:56)
[2016-11-22] MEDS: FUROSEMIDE 40 MG/4 ML VIAL IVP SCH (09:38)
[2016-11-22] MEDS: OXYCODONE ER 10 MG TAB.ER.12H. PO SCH ×2 (09:39→21:56)
[2016-11-22] MEDS: SENNOSIDES 8.6 MG TABLET PO SCH ×2 (09:39→21:56)
[2016-11-22] MEDS: CALCIUM CARB/VIT D3 500/200 TABLET PO SCH (09:40)
[2016-11-22] MEDS: CARVEDILOL 3.125 MG TABLET PO SCH ×2 (09:40→18:29)
[2016-11-22] MEDS: PANTOPRAZOLE 40 MG TABLET. PO SCH (09:40)
[2016-11-22] MEDS: MULTIVITAMIN with MINERAL TABLET. PO SCH (09:40)
[2016-11-22] MEDS: LEVOTHYROXINE 100 MCG TABLET PO SCH (09:40)
[2016-11-22] MEDS: FINASTERIDE 5 MG TABLET PO SCH (09:40)
[2016-11-22] MEDS: CITALOPRAM 20 MG TABLET. PO SCH (09:41)
--- NOTE | 2016-11-22 09:50 | PDOC ---
PROGRESS NOTES Subjective Subjective He feels better. Objective Objective Vital Signs Date Time Temp Pulse Resp B/P Pulse Ox O2 Delivery O2 Flow Rate FiO2 11/22/16 09:41 18 100 Nasal Cannula 2.0 11/22/16 09:40 72 120/56 11/22/16 07:00 98.5 98.5 Intake and Output 11/22/16 07:00 Intake Total 710 ml Output Total 3950 ml Balance -3240 ml Intake Oral 710 ml Output Urine Total 3950 ml # Bowel Movements 1 Physical Exam Physical Exam He is lying on his right side and his constipation is being worked on and he agrees today for sacroplasty. Assessment Assessment Problems Medical Problems: (1) Lumbar back pain Status: Acute Plan Plan of Care To ask to try sacroplasty. Comment Review of Relevant I have reviewed the following items michael (where applicable) has been applied. Labs Microbiology 11/15/16 Blood Culture - Final, Complete NO GROWTH AFTER 5 DAYS 11/19/16 Urine Culture - Final, Complete 11/19/16 Urine Culture Result 1 (KEVIN) - Final, Complete Medications Current Medications Ondansetron HCl (Zofran) 4 mg PRN Q8HRS PRN IV NAUSEA/VOMITING Last administered on 11/14/16 22:44; Start 11/14/16 at 22:15; Stop 11/15/16 at 22:14; Status DC Fentanyl Citrate (Fentanyl 2ml Vial) 50 mcg PRN Q2HR PRN IV SEVERE PAIN Last administered on 11/14/16 22:46; Start 11/14/16 at 22:15; Stop 11/15/16 at 22:14; Status DC Acetaminophen (Tylenol) 650 mg PRN Q4HRS PRN PO FEVER; Start 11/14/16 at 22:15; Stop 11/15/16 at 22:14; Status DC Acetaminophen (Tylenol) 650 mg PRN Q6HRS PRN PO FEVER; Start 11/15/16 at 07:00 Albuterol Sulfate (Ventolin Neb Soln) 1 mg PRN Q6HRS PRN NEB SHORTNESS OF BREATH; Start 11/15/16 at 07:00 Carvedilol (Coreg) 3.125 mg BIDWMEALS PO Last administered on 11/22/16 09:40; Start 11/15/16 at 08:00 Citalopram Hydrobromide (Celexa) 20 mg DAILY PO Last administered on 11/22/16 09:41; Start 11/15/16 at 09:00 Fentanyl (Duragesic 75mcg/ Hr Patch) 1 patch Q72H TD Last administered on 11:04; Start 11/15/16 at 07:00; Stop 11/16/16 at 12:10; Status DC Finasteride (Proscar) 5 mg DAILY PO Last administered on 11/22/16 09:40; Start 11/15/16 at 09:00 Furosemide (Lasix) 40 mg DAILY PO Last administered on 11/15/16 11:06; Start at 09:00; Stop 11/16/16 at 17:42; Status DC Acetaminophen/ Hydrocodone Bitart (Lortab 10/325) 1 tab PRN Q6HRS PRN PO SEVERE PAIN Last administered on 11/18/16 03:37; Start 11/15/16 at 07:00; Stop 11/18/16 at 08:46; Status DC Hydroxyurea (Hydrea) 1,000 mg [id number] PO Last administered on 11/20/16 21 :56; Start 11/15/16 at 21:00 Levothyroxine Sodium (Synthroid) 100 mcg DAILYAC PO Last administered on 09:40; Start 11/15/16 at 07:30 Pantoprazole Sodium (Protonix) 40 mg DAILYAC PO Last administered on 11/22/16 09:40; Start 11/15/16 at 07:30 Sennosides (Senna) 8.6 mg BID PO Last administered on 11/22/16 09:39; Start at 09:00 Trimethoprim/ Sulfamethoxazole (Bactrim Ds) 1 tab BID PO Last administered on 11:30; Start 11/15/16 at 09:00; Stop 11/15/16 at 14:32; Status DC Calcium/Vitamin D (Oscal D 500mg/ 200uts) 1 tab DAILY PO Last administered on 09:40; Start 11/15/16 at 09:00 Multivitamins/ Calcium (Thera M Plus) 1 tab DAILY PO Last administered on 09:40; Start 11/15/16 at 09:00 Hydroxyurea (Hydrea) 1,500 mg QFRIDAY PO ; Start 11/21/16 at 21:00 Enoxaparin Sodium (Lovenox 40mg Syringe) 40 mg Q24H SQ Last administered on 11/16 13:51; Start 11/15/16 at 13:00; Stop 11/16/16 at 19:19; Status DC Albuterol Sulfate 2.5 mg 2.5 mg RTQID NEB Last administered on 11/22/16 08:09 ; Start 11/16/16 at 12:00 Dextrose/Lactated Ringer's (Iv D5%-Lr) 1,000 ml @ 75 mls/hr [id number] IV Last administered on 11/17/16 01:53; Start 11/16/16 at 12:00; Stop 11/17/16 at 17:02; Status DC Furosemide (Lasix) 40 mg DAILY IVP ; Start 11/17/16 at 21:00; Stop 11/17/16 at 21: 00; Status DC Furosemide (Lasix) 40 mg DAILY IVP Last administered on 11/22/16 09:38; Start 11/16/16 at 21:00 Enoxaparin Sodium (Lovenox 100mg Syringe) 90 mg Q12HR SQ Last administered on 22:25; Start 11/16/16 at 21:00; Stop 11/17/16 at 10:23; Status DC Gadobutrol (Gadavist) 7.5 mmol 1X ONCE IV Last administered on 11/17/16 10:52 ; Start 11/17/16 at 10:30; Stop 11/17/16 at 10:32; Status DC Oxycodone/ Acetaminophen (Percocet 7.5/ 325) 1 tab PRN Q6HRS PRN PO PAIN Last administered on 11/22/16 09:41; Start 11/18/16 at 08:45 Iohexol (Omnipaque 180 Mg/ml) 10 ml 1X ONCE IJ ; Start 11/18/16 at 09:15; Stop 11/18/16 at 09:16; Status DC Iohexol (Omnipaque 180 Mg/ml) 20 ml 1X ONCE IJ ; Start 11/18/16 at 09:15; Stop 11/18/16 at 09:16; Status DC Hydromorphone HCl (Dilaudid) 0.5 mg 1X ONCE IV Last administered on 11/18/16 10:00; Start 11/18/16 at 10:00; Stop 11/18/16 at 10:01; Status DC Oxycodone HCl (Oxycontin) 15 mg Q12HR PO Last administered on 11/19/16 07:57; Start 11/18/16 at 11:00; Stop 11/19/16 at 09:45; Status DC Hydromorphone HCl (Dilaudid) 0.4 mg PRN Q4HRS PRN IVP PAIN Last administered on 11/22/16 00:38; Start 11/18/16 at 10:15 Oxycodone HCl 20 mg 20 mg Q12HR PO Last administered on 11/22/16 09:39; Start 11/19/16 at 21:00 Amino Acids/ Glycerin/ Electrolytes (Procalamine) 1,000 ml @ 80 mls/hr [id number] IV Last administered on 11/22/16 09:37; Start 11/19/16 at 15:00 Prednisone (Prednisone) 60 mg DAILY PO Last administered on 11/21/16 09:56; Start 11/20/16 at 09:00; Stop 11/22/16 at 08:56; Status DC Bisacodyl (Dulcolax Supp) 10 mg PRN DAILY PRN [place] CONSTIPATION Last administered on 11/21/16 13:11; Start 11/21/16 at 10:45 Mineral Oil (Fleet Mineral Oil) 133 ml 1X ONCE [place] ; Start 11/21/16 at 10:45; Stop 11/21/16 at 10:48; Status DC Magnesium Citrate (Citroma) 296 ml PRN 1X PRN PO CONSTIPATION; Start 11/21/16 at 10:45 Enoxaparin Sodium (Lovenox 40mg Syringe) 40 mg Q24H SQ ; Start 11/21/16 at 21:00 Prednisone (Prednisone) 50 mg 1X ONCE PO Last administered on 11/22/16 09:39 ; Start 11/22/16 at 09:00; Stop 11/22/16 at 09:01; Status DC Active Scripts Active Bactrim Ds Tablet (Sulfamethoxazole/Trimethoprim) 1 Each Tablet 1 Tab PO BID Reported Senokot (Sennosides) 8.6 Mg Tablet 8.6 Mg PO BID Albuterol Sulfate Neb Soln (Albuterol Sulfate) 2.5 Mg/3 Ml Vial.neb 1 Vial NEB Q6HRS PRN Tylenol (Acetaminophen) 325 Mg Tablet 2 Tab PO Q6HRS PRN FENTANYL 75mcg/hr (Fentanyl) 1 Each Patch.td72 1 Patch TD Q72H Citalopram Hbr (Citalopram Hydrobromide) 20 Mg Tablet 1 Tab PO DAILY Furosemide 40 Mg Tablet 1 Tab PO DAILY Calcium 600 + Vit D 400 Softgl (Calcium Carbonate/Vitamin D3) 1 Each Capsule 600 Each PO DAILY Multi Vitamin Daily (Multivitamin) 1 Each Tablet 1 Each PO Finasteride 5 Mg Tablet 5 Mg PO DAILY Hydrocodone-Apap 10-325 (Hydrocodone Bit/Acetaminophen) 1 Each Tablet 1 Tab PO PRN Q6HRS PRN Hydroxyurea 500 Mg Capsule 1,000 Mg PO HS Pantoprazole Sodium 40 Mg Tablet.dr 40 Mg PO DAILY Carvedilol 3.125 Mg Tablet 3.125 Mg PO BIDWMEALS Levothyroxine Sodium 100 Mcg Tablet 100 Mcg PO DAILYAC Vitals/I & O Vital Sign - Last 24 Hours 11/21/16 11/21/16 11/21/16 11/21/16 09:55 09:56 09:58 10:56 Pulse 76 Resp B/P 116/59 Pulse Ox 99 99 O2 Delivery Nasal Cannula Nasal Cannula O2 Flow Rate 2.0 2.0 11/21/16 11/21/16 11/21/16 11/21/16 11:00 12:40 13:55 15:00 Temp 97.5 97.5 Pulse 61 Resp 18 18 18 B/P 114/62 Pulse Ox 95 O2 Delivery Nasal Cannula Nasal Cannula O2 Flow Rate 3.0 2.0 11/21/16 11/21/16 11/21/16 11/21/16 16:08 18:45 18:45 19:47 Temp 98.4 98.4 Pulse 61 88 Resp 18 16 B/P 114/62 103/59 Pulse Ox 98 98 96 O2 Delivery Nasal Cannula Nasal Cannula Nasal Cannula O2 Flow Rate 2.0 2.0 2.0 11/21/16 11/21/16 11/21/16 11/21/16 19:52 20:32 20:43 23:16 Temp 98.3 98.3 Pulse 80 Resp 18 B/P 96/52 Pulse Ox 96 96 98 O2 Delivery Nasal Cannula Nasal Cannula Nasal Cannula Nasal Cannula O2 Flow Rate 2.0 2.0 2.0 11/22/16 11/22/16 11/22/16 11/22/16 00:38 00:38 00:45 01:10 Pulse Ox 98 98 98 98 O2 Delivery Nasal Cannula Nasal Cannula Nasal Cannula Nasal Cannula O2 Flow Rate 2.0 2.0 2.0 2.0 11/22/16 11/22/16 11/22/16 11/22/16 01:42 03:45 07:00 08:11 Temp 98.5 98.5 Pulse 72 Resp 18 18 B/P 120/56 Pulse Ox 98 95 100 O2 Delivery Nasal Cannula Nasal Cannula Nasal Cannula O2 Flow Rate 2.0 2.0 2.0 11/22/16 11/22/16 11/22/16 09:39 09:40 09:41 Pulse 72 Resp 18 18 B/P 120/56 Pulse Ox 100 100 O2 Delivery Nasal Cannula Nasal Cannula O2 Flow Rate 2.0 2.0 Intake and Output 11/21/16 11/21/16 11/22/16 15:00 23:00 07:00 Intake Total 500 ml 210 ml Output Total 2200 ml 1750 ml Balance -1700 ml -1540 ml LYN ABBOTT MD Nov 22, 2016 09:50
[2016-11-22 11:00] VITALS: BP 125/59
--- NOTE | 2016-11-22 13:58 | PDOC ---
SUBJECTIVE Subjective Denies acute complaints. Sitting up edge of bed eating. ROS: denies paresthesia, soa, cp OBJECTIVE Vital Signs Vital Signs Date Time Temp Pulse Resp B/P Pulse Ox O2 Delivery O2 Flow Rate FiO2 11/22/16 12:19 Room Air 11/22/16 11:00 98.5 78 18 125/59 95 98.5 11/22/16 10:41 17 95 Nasal Cannula 2.0 11/22/16 09:41 18 100 Nasal Cannula 2.0 11/22/16 09:40 72 120/56 11/22/16 09:39 18 100 Nasal Cannula 2.0 11/22/16 08:11 100 Nasal Cannula 2.0 11/22/16 08:00 Nasal Cannula 2.0 11/22/16 07:00 98.5 72 18 120/56 95 98.5 11/22/16 03:45 18 Nasal Cannula 2.0 11/22/16 01:10 98 Nasal Cannula 2.0 11/22/16 00:45 98 Nasal Cannula 2.0 11/22/16 00:38 98 Nasal Cannula 2.0 11/22/16 00:38 98 Nasal Cannula 2.0 11/21/16 23:16 98.3 80 18 96/52 98 Nasal Cannula 98.3 11/21/16 20:43 96 Nasal Cannula 2.0 11/21/16 20:32 Nasal Cannula 2.0 11/21/16 19:52 96 Nasal Cannula 2.0 11/21/16 19:47 98.4 88 16 103/59 96 Nasal Cannula 2.0 98.4 11/21/16 18:45 18 98 Nasal Cannula 2.0 11/21/16 18:45 61 114/62 11/21/16 16:08 98 Nasal Cannula 2.0 11/21/16 15:00 18 I & O Intake and Output 11/22/16 07:00 Intake Total 710 ml Output Total 3950 ml Balance -3240 ml Intake Oral 710 ml Output Urine Total 3950 ml # Bowel Movements 1 PHYSICAL EXAM Physical Exam AA, NAD, strength stable, improved ROM hips/less pain ASSESSMENT/PLAN Assessment/Plan 86M with hip pain -plans for sacroplasty Thursday noted Problems: ARIANNA WILKERSON MD Nov 22, 2016 13:58
[2016-11-22 15:00] VITALS: BP 107/50
[2016-11-22 19:00] VITALS: BP 114/53
[2016-11-22] MEDS: ENOXAPARIN 40 MG/0.4 ML DISP.SYRIN. SQ SCH (20:28)
[2016-11-22] MEDS: HYDROXYUREA 500 MG CAPSULE PO SCH (22:08)
[2016-11-22 23:00] VITALS: BP 117/54
[2016-11-23] MEDS: OXYCODONE/APAP 7.5/325 TABLET. PO PRN ×2 (00:12→05:54)
[2016-11-23] MEDS: HYDROMORPHONE 2 MG/ML VIAL. IVP PRN ×2 (02:15→05:55)
[2016-11-23 03:00] VITALS: BP 123/64
[2016-11-23 07:00] VITALS: BP 135/64
--- NOTE | 2016-11-23 07:27 | PDOC ---
PROGRESS NOTES Subjective Subjective Patient stable without new complaint.Pain improved. Labs stable. Sarcoplasty likely tomorrow. Objective Objective Vital Signs Date Time Temp Pulse Resp B/P Pulse Ox O2 Delivery O2 Flow Rate FiO2 11/23/16 06:54 Room Air 11/23/16 03:00 97.5 80 17 123/64 96 97.5 11/22/16 20:00 2.0 Intake and Output 11/23/16 07:00 Intake Total 610 ml Output Total 4050 ml Balance -3440 ml Intake Oral 610 ml Output Urine Total 4050 ml # Bowel Movements 1 Physical Exam Abdomen: Normal bowel sounds Heart: Regular rate Extremities: Other (3 + edema) General: Alert Lungs: Clear to auscultation Assessment Assessment Problems Medical Problems: (1) Lumbar back pain Status: Acute (1) Lumbar back pain with subdural lumbar fluid collection, limiting mobility, initial fall 08/2016 precipitant cause, bone scan showing subacute sacral insufficiency fracture but pt refuses IR intervention initially now patient agrees to sarcoplasty. (2) left hip pain - limiting mobility - improving ?due to steroids (3) urinary retention with hx of BPH -new condition, now requiring Jones, UA unremarkable (4) recent UTI, MRSA - completed course of Bactrim (5) moderately severe protein malnutrition - with pleural fluid and anasarca, started Procalamine, encourage Boost tid and assist with feeding (6) aortic stenosis/ CAD - stable (7) right heel pressure ulcer - wound care treating (8) anemia - chronic, stable after transfusion of 1 unit pRBC, mild recent drop likely dilutional due to Procalamine (9) atelectasis/COPD - continue neb tx (10) encephalopathy - resolved, was due to pain meds and anemia (11) superficial thrombus left leg with elevated D-dimer, will resume lovenox (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 Labs Microbiology 11/15/16 Blood Culture - Final, Complete NO GROWTH AFTER 5 DAYS 11/19/16 Urine Culture - Final, Complete 11/19/16 Urine Culture Result 1 (KEVIN) - Final, Complete Medications Current Medications Ondansetron HCl (Zofran) 4 mg PRN Q8HRS PRN IV NAUSEA/VOMITING Last administered on 11/14/16 22:44; Start 11/14/16 at 22:15; Stop 11/15/16 at 22:14; Status DC Fentanyl Citrate (Fentanyl 2ml Vial) 50 mcg PRN Q2HR PRN IV SEVERE PAIN Last administered on 11/14/16 22:46; Start 11/14/16 at 22:15; Stop 11/15/16 at 22:14; Status DC Acetaminophen (Tylenol) 650 mg PRN Q4HRS PRN PO FEVER; Start 11/14/16 at 22:15; Stop 11/15/16 at 22:14; Status DC Acetaminophen (Tylenol) 650 mg PRN Q6HRS PRN PO FEVER; Start 11/15/16 at 07:00 Albuterol Sulfate (Ventolin Neb Soln) 1 mg PRN Q6HRS PRN NEB SHORTNESS OF BREATH; Start 11/15/16 at 07:00 Carvedilol (Coreg) 3.125 mg BIDWMEALS PO Last administered on 11/22/16 18:29; Start 11/15/16 at 08:00 Citalopram Hydrobromide (Celexa) 20 mg DAILY PO Last administered on 11/22/16 09:41; Start 11/15/16 at 09:00 Fentanyl (Duragesic 75mcg/ Hr Patch) 1 patch Q72H TD Last administered on 11:04; Start 11/15/16 at 07:00; Stop 11/16/16 at 12:10; Status DC Finasteride (Proscar) 5 mg DAILY PO Last administered on 11/22/16 09:40; Start 11/15/16 at 09:00 Furosemide (Lasix) 40 mg DAILY PO Last administered on 11/15/16 11:06; Start at 09:00; Stop 11/16/16 at 17:42; Status DC Acetaminophen/ Hydrocodone Bitart (Lortab 10/325) 1 tab PRN Q6HRS PRN PO SEVERE PAIN Last administered on 11/18/16 03:37; Start 11/15/16 at 07:00; Stop 11/18/16 at 08:46; Status DC Hydroxyurea (Hydrea) 1,000 mg SuMoTuWeThSa PO Last administered on 11/22/16 22 :08; Start 11/15/16 at 21:00 Levothyroxine Sodium (Synthroid) 100 mcg DAILYAC PO Last administered on 09:40; Start 11/15/16 at 07:30 Pantoprazole Sodium (Protonix) 40 mg DAILYAC PO Last administered on 11/22/16 09:40; Start 11/15/16 at 07:30 Sennosides (Senna) 8.6 mg BID PO Last administered on 11/22/16 21:56; Start at 09:00 Trimethoprim/ Sulfamethoxazole (Bactrim Ds) 1 tab BID PO Last administered on 11:30; Start 11/15/16 at 09:00; Stop 11/15/16 at 14:32; Status DC Calcium/Vitamin D (Oscal D 500mg/ 200uts) 1 tab DAILY PO Last administered on 09:40; Start 11/15/16 at 09:00 Multivitamins/ Calcium (Thera M Plus) 1 tab DAILY PO Last administered on 09:40; Start 11/15/16 at 09:00 Hydroxyurea (Hydrea) 1,500 mg QFRIDAY PO ; Start 11/21/16 at 21:00 Enoxaparin Sodium (Lovenox 40mg Syringe) 40 mg Q24H SQ Last administered on 11/16 13:51; Start 11/15/16 at 13:00; Stop 11/16/16 at 19:19; Status DC Albuterol Sulfate 2.5 mg 2.5 mg RTQID NEB Last administered on 11/22/16 16:18 ; Start 11/16/16 at 12:00 Dextrose/Lactated Ringer's (Iv D5%-Lr) 1,000 ml @ 75 mls/hr [id number] IV Last administered on 11/17/16 01:53; Start 11/16/16 at 12:00; Stop 11/17/16 at 17:02; Status DC Furosemide (Lasix) 40 mg DAILY IVP ; Start 11/17/16 at 21:00; Stop 11/17/16 at 21: 00; Status DC Furosemide (Lasix) 40 mg DAILY IVP Last administered on 11/22/16 09:38; Start 11/16/16 at 21:00 Enoxaparin Sodium (Lovenox 100mg Syringe) 90 mg Q12HR SQ Last administered on 22:25; Start 11/16/16 at 21:00; Stop 11/17/16 at 10:23; Status DC Gadobutrol (Gadavist) 7.5 mmol 1X ONCE IV Last administered on 11/17/16 10:52 ; Start 11/17/16 at 10:30; Stop 11/17/16 at 10:32; Status DC Oxycodone/ Acetaminophen (Percocet 7.5/ 325) 1 tab PRN Q6HRS PRN PO PAIN Last administered on 11/23/16 05:54; Start 11/18/16 at 08:45 Iohexol (Omnipaque 180 Mg/ml) 10 ml 1X ONCE IJ ; Start 11/18/16 at 09:15; Stop 11/18/16 at 09:16; Status DC Iohexol (Omnipaque 180 Mg/ml) 20 ml 1X ONCE IJ ; Start 11/18/16 at 09:15; Stop 11/18/16 at 09:16; Status DC Hydromorphone HCl (Dilaudid) 0.5 mg 1X ONCE IV Last administered on 11/18/16 10:00; Start 11/18/16 at 10:00; Stop 11/18/16 at 10:01; Status DC Oxycodone HCl (Oxycontin) 15 mg Q12HR PO Last administered on 11/19/16 07:57; Start 11/18/16 at 11:00; Stop 11/19/16 at 09:45; Status DC Hydromorphone HCl (Dilaudid) 0.4 mg PRN Q4HRS PRN IVP PAIN Last administered on 11/23/16 05:55; Start 11/18/16 at 10:15 Oxycodone HCl 20 mg 20 mg Q12HR PO Last administered on 11/22/16 21:56; Start 11/19/16 at 21:00 Amino Acids/ Glycerin/ Electrolytes (Procalamine) 1,000 ml @ 80 mls/hr [id number] IV Last administered on 11/22/16 21:56; Start 11/19/16 at 15:00 Prednisone (Prednisone) 60 mg DAILY PO Last administered on 11/21/16 09:56; Start 11/20/16 at 09:00; Stop 11/22/16 at 08:56; Status DC Bisacodyl (Dulcolax Supp) 10 mg PRN DAILY PRN [place] CONSTIPATION Last administered on 11/21/16 13:11; Start 11/21/16 at 10:45 Mineral Oil (Fleet Mineral Oil) 133 ml 1X ONCE [place] ; Start 11/21/16 at 10:45; Stop 11/21/16 at 10:48; Status DC Magnesium Citrate (Citroma) 296 ml PRN 1X PRN PO CONSTIPATION; Start 11/21/16 at 10:45 Enoxaparin Sodium (Lovenox 40mg Syringe) 40 mg Q24H SQ ; Start 11/21/16 at 21:00 Prednisone (Prednisone) 50 mg 1X ONCE PO Last administered on 11/22/16 09:39 ; Start 11/22/16 at 09:00; Stop 11/22/16 at 09:01; Status DC Active Scripts Active Bactrim Ds Tablet (Sulfamethoxazole/Trimethoprim) 1 Each Tablet 1 Tab PO BID Reported Senokot (Sennosides) 8.6 Mg Tablet 8.6 Mg PO BID Albuterol Sulfate Neb Soln (Albuterol Sulfate) 2.5 Mg/3 Ml Vial.neb 1 Vial NEB Q6HRS PRN Tylenol (Acetaminophen) 325 Mg Tablet 2 Tab PO Q6HRS PRN FENTANYL 75mcg/hr (Fentanyl) 1 Each Patch.td72 1 Patch TD Q72H Citalopram Hbr (Citalopram Hydrobromide) 20 Mg Tablet 1 Tab PO DAILY Furosemide 40 Mg Tablet 1 Tab PO DAILY Calcium 600 + Vit D 400 Softgl (Calcium Carbonate/Vitamin D3) 1 Each Capsule 600 Each PO DAILY Multi Vitamin Daily (Multivitamin) 1 Each Tablet 1 Each PO Finasteride 5 Mg Tablet 5 Mg PO DAILY Hydrocodone-Apap 10-325 (Hydrocodone Bit/Acetaminophen) 1 Each Tablet 1 Tab PO PRN Q6HRS PRN Hydroxyurea 500 Mg Capsule 1,000 Mg PO HS Pantoprazole Sodium 40 Mg Tablet.dr 40 Mg PO DAILY Carvedilol 3.125 Mg Tablet 3.125 Mg PO BIDWMEALS Levothyroxine Sodium 100 Mcg Tablet 100 Mcg PO DAILYAC Vitals/I & O Vital Sign - Last 24 Hours 11/22/16 11/22/16 11/22/16 11/22/16 08:00 08:11 09:39 09:40 Pulse 72 Resp 18 B/P 120/56 Pulse Ox 100 100 O2 Delivery Nasal Cannula Nasal Cannula Nasal Cannula O2 Flow Rate 2.0 2.0 2.0 11/22/16 11/22/16 11/22/16 11/22/16 09:41 10:41 11:00 12:19 Temp 98.5 98.5 Pulse 78 Resp 18 17 18 B/P 125/59 Pulse Ox 100 95 95 O2 Delivery Nasal Cannula Room Air O2 Flow Rate 2.0 2.0 11/22/16 11/22/16 11/22/16 11/22/16 13:39 15:00 16:20 18:29 Temp 98.5 98.5 Pulse 69 69 Resp 18 18 B/P 107/50 107/50 Pulse Ox 95 97 O2 Delivery Room Air O2 Flow Rate 2.0 11/22/16 11/22/16 11/22/16 11/22/16 18:30 19:00 20:00 20:03 Temp 97.9 97.9 Pulse 76 Resp 18 18 B/P 114/53 Pulse Ox 97 95 95 O2 Delivery Nasal Cannula Room Air Nasal Cannula Room Air O2 Flow Rate 2.0 2.0 11/22/16 11/22/16 11/23/16 11/23/16 21:56 23:00 00:12 01:56 Temp 98.8 98.8 Pulse 73 Resp 18 B/P 117/54 Pulse Ox 96 O2 Delivery Room Air Room Air Room Air Room Air 11/23/16 11/23/16 11/23/16 11/23/16 02:15 03:00 05:54 05:55 Temp 97.5 97.5 Pulse 80 Resp 17 B/P 123/64 Pulse Ox 96 O2 Delivery Room Air Room Air Room Air Room Air 11/23/16 11/23/16 06:25 06:54 O2 Delivery Room Air Room Air Intake and Output 11/22/16 11/22/16 11/23/16 15:00 23:00 07:00 Intake Total 250 ml 360 ml Output Total 1250 ml 450 ml 2350 ml Balance -1250 ml -200 ml -1990 ml AMADEO MENDEZ MD Nov 23, 2016 07:27
[2016-11-23] MEDS: ALBUTEROL SULFATE 2.5 MG/3 ML NEBU. NEB SCH ×4 (08:03→17:07)
[2016-11-23 08:18] LABS: HEMATOCRIT 27.2 % (39.0-53.0); HEMOGLOBIN 8.5 g/dL (13.0-17.5); RED BLOOD COUNT 2.28 x10^6/uL (4.30-5.70); WHITE BLOOD COUNT 3.2 x10^3/uL (4.0-11.0)
[2016-11-23 08:22] LABS: CALCIUM 7.9 mg/dL (8.5-10.1); CREATININE 0.7 mg/dL (0.7-1.3); GFR 106.4; POTASSIUM 4.2 mmol/L (3.5-5.1)
[2016-11-23 08:29] LABS: INR 1.2 (0.8-1.1); PROTHROMBIN TIME PATIENT 14.5 SEC (11.7-14.0)
[2016-11-23] MEDS: MULTIVITAMIN with MINERAL TABLET. PO SCH (08:35)
[2016-11-23] MEDS: SENNOSIDES 8.6 MG TABLET PO SCH ×2 (08:35→21:00)
[2016-11-23] MEDS: PREDNISONE 20 MG TABLET PO SCH (08:35)
[2016-11-23] MEDS: FINASTERIDE 5 MG TABLET PO SCH (08:35)
[2016-11-23] MEDS: AA 3%/ELECTROLYTE-TPN SOLN/GLY 1,000 ML IV SCH ×2 (08:35→20:36)
[2016-11-23] MEDS: CALCIUM CARB/VIT D3 500/200 TABLET PO SCH (08:35)
[2016-11-23] MEDS: OXYCODONE ER 10 MG TAB.ER.12H. PO SCH ×2 (08:36→20:37)
[2016-11-23] MEDS: PANTOPRAZOLE 40 MG TABLET. PO SCH (08:36)
[2016-11-23] MEDS: LEVOTHYROXINE 100 MCG TABLET PO SCH (08:36)
[2016-11-23] MEDS: FUROSEMIDE 40 MG/4 ML VIAL IVP SCH (08:36)
[2016-11-23] MEDS: CITALOPRAM 20 MG TABLET. PO SCH (08:36)
[2016-11-23] MEDS: CARVEDILOL 3.125 MG TABLET PO SCH ×2 (08:36→17:36)
[2016-11-23 11:34] VITALS: BP 91/50
[2016-11-23 15:13] VITALS: BP 110/57
[2016-11-23 19:00] VITALS: BP 98/52
[2016-11-23] MEDS: ENOXAPARIN 40 MG/0.4 ML DISP.SYRIN. SQ SCH (20:37)
[2016-11-23] MEDS: HYDROXYUREA 500 MG CAPSULE PO SCH (20:42)
[2016-11-23 23:00] VITALS: BP 131/67
[2016-11-24 03:00] VITALS: BP 132/64
[2016-11-24] MEDS: OXYCODONE/APAP 7.5/325 TABLET. PO PRN ×2 (03:10→13:23)
[2016-11-24] MEDS: ALBUTEROL SULFATE 2.5 MG/3 ML NEBU. NEB SCH ×2 (06:37→11:28)
[2016-11-24] MEDS: LEVOTHYROXINE 100 MCG TABLET PO SCH (07:04)
[2016-11-24] MEDS: FINASTERIDE 5 MG TABLET PO SCH (07:04)
[2016-11-24] MEDS: OXYCODONE ER 10 MG TAB.ER.12H. PO SCH (07:04)
[2016-11-24] MEDS: CARVEDILOL 3.125 MG TABLET PO SCH (07:04)
[2016-11-24] MEDS: CITALOPRAM 20 MG TABLET. PO SCH (07:04)
[2016-11-24] MEDS: PANTOPRAZOLE 40 MG TABLET. PO SCH (07:04)
[2016-11-24] MEDS: PREDNISONE 20 MG TABLET PO SCH (07:04)
[2016-11-24] MEDS: CALCIUM CARB/VIT D3 500/200 TABLET PO SCH (07:04)
[2016-11-24] MEDS: MULTIVITAMIN with MINERAL TABLET. PO SCH (07:05)
[2016-11-24] MEDS: SENNOSIDES 8.6 MG TABLET PO SCH (07:05)
[2016-11-24 07:15] VITALS: BP 134/68
[2016-11-24] MEDS: AA 3%/ELECTROLYTE-TPN SOLN/GLY 1,000 ML IV SCH (07:28)
[2016-11-24] MEDS: FUROSEMIDE 40 MG/4 ML VIAL IVP SCH (07:28)
--- NOTE | 2016-11-24 09:29 | PDOC ---
PROGRESS NOTES Subjective Subjective No new complaints. Objective Objective Vital Signs Date Time Temp Pulse Resp B/P Pulse Ox O2 Delivery O2 Flow Rate FiO2 11/24/16 08:00 Nasal Cannula 3.0 11/24/16 07:15 97.4 71 18 134/68 96 97.4 Intake and Output 11/24/16 07:00 Intake Total 1090 ml Output Total 3100 ml Balance -2010 ml Intake Oral 1090 ml Output Urine Total 3100 ml Physical Exam Physical Exam He is comfortable supine in bed.I spoke to . Assessment Assessment Problems Medical Problems: (1) Lumbar back pain Status: Acute Plan Plan of Care Agree with plans for sacroplasty and to SNF afterwords. Comment Review of Relevant I have reviewed the following items michael (where applicable) has been applied. Labs Laboratory Tests Test 11/23/16 07:50 White Blood Count 3.2x10^3/uL (4.0-11.0) Red Blood Count 2.28x10^6/uL (4.30-5.70) Hemoglobin 8.5g/dL (13.0-17.5) Hematocrit 27.2% (39.0-53.0) Mean Corpuscular Volume 119fL (79-100) Mean Corpuscular Hemoglobin 37pg (25-35) Mean Corpuscular Hemoglobin Concent 31g/dL (31-37) Red Cell Distribution Width 29.0% (11.5-14.5) Platelet Count 552x10^3/uL (140-400) Prothrombin Time 14.5SEC (11.7-14.0) Prothromb Time International Ratio 1.2 (0.8-1.1) Sodium Level 136mmol/L (136-145) Potassium Level 4.2mmol/L (3.5-5.1) Chloride Level 100mmol/L (98-107) Carbon Dioxide Level 34mmol/L (21-32) Anion Gap 2 (6-14) Blood Urea Nitrogen 26mg/dL (8-26) Creatinine 0.7mg/dL (0.7-1.3) Estimated GFR (Cockcroft-Gault) 106.4 Glucose Level 84mg/dL (70-99) Calcium Level 7.9mg/dL (8.5-10.1) Microbiology 11/15/16 Blood Culture - Final, Complete NO GROWTH AFTER 5 DAYS 11/19/16 Urine Culture - Final, Complete 11/19/16 Urine Culture Result 1 (KEVIN) - Final, Complete Medications Current Medications Ondansetron HCl (Zofran) 4 mg PRN Q8HRS PRN IV NAUSEA/VOMITING Last administered on 11/14/16 22:44; Start 11/14/16 at 22:15; Stop 11/15/16 at 22:14; Status DC Fentanyl Citrate (Fentanyl 2ml Vial) 50 mcg PRN Q2HR PRN IV SEVERE PAIN Last administered on 11/14/16 22:46; Start 11/14/16 at 22:15; Stop 11/15/16 at 22:14; Status DC Acetaminophen (Tylenol) 650 mg PRN Q4HRS PRN PO FEVER; Start 11/14/16 at 22:15; Stop 11/15/16 at 22:14; Status DC Acetaminophen (Tylenol) 650 mg PRN Q6HRS PRN PO FEVER; Start 11/15/16 at 07:00 Albuterol Sulfate (Ventolin Neb Soln) 1 mg PRN Q6HRS PRN NEB SHORTNESS OF BREATH Last administered on 11/23/16 19:36; Start 11/15/16 at 07:00 Carvedilol (Coreg) 3.125 mg BIDWMEALS PO Last administered on 11/23/16 17:36; Start 11/15/16 at 08:00 Citalopram Hydrobromide (Celexa) 20 mg DAILY PO Last administered on 11/23/16 08:36; Start 11/15/16 at 09:00 Fentanyl (Duragesic 75mcg/ Hr Patch) 1 patch Q72H TD Last administered on 11:04; Start 11/15/16 at 07:00; Stop 11/16/16 at 12:10; Status DC Finasteride (Proscar) 5 mg DAILY PO Last administered on 11/23/16 08:35; Start 11/15/16 at 09:00 Furosemide (Lasix) 40 mg DAILY PO Last administered on 11/15/16 11:06; Start at 09:00; Stop 11/16/16 at 17:42; Status DC Acetaminophen/ Hydrocodone Bitart (Lortab 10/325) 1 tab PRN Q6HRS PRN PO SEVERE PAIN Last administered on 11/18/16 03:37; Start 11/15/16 at 07:00; Stop 11/18/16 at 08:46; Status DC Hydroxyurea (Hydrea) 1,000 mg [id number] PO Last administered on 11/23/16 20 :42; Start 11/15/16 at 21:00 Levothyroxine Sodium (Synthroid) 100 mcg DAILYAC PO Last administered on 08:36; Start 11/15/16 at 07:30 Pantoprazole Sodium (Protonix) 40 mg DAILYAC PO Last administered on 11/23/16 08:36; Start 11/15/16 at 07:30 Sennosides (Senna) 8.6 mg BID PO Last administered on 11/23/16 08:35; Start at 09:00 Trimethoprim/ Sulfamethoxazole (Bactrim Ds) 1 tab BID PO Last administered on 11:30; Start 11/15/16 at 09:00; Stop 11/15/16 at 14:32; Status DC Calcium/Vitamin D (Oscal D 500mg/ 200uts) 1 tab DAILY PO Last administered on 08:35; Start 11/15/16 at 09:00 Multivitamins/ Calcium (Thera M Plus) 1 tab DAILY PO Last administered on 08:35; Start 11/15/16 at 09:00 Hydroxyurea (Hydrea) 1,500 mg QFRIDAY PO ; Start 11/21/16 at 21:00 Enoxaparin Sodium (Lovenox 40mg Syringe) 40 mg Q24H SQ Last administered on 11/16 13:51; Start 11/15/16 at 13:00; Stop 11/16/16 at 19:19; Status DC Albuterol Sulfate 2.5 mg 2.5 mg RTQID NEB Last administered on 11/23/16 17:07 ; Start 11/16/16 at 12:00 Dextrose/Lactated Ringer's (Iv D5%-Lr) 1,000 ml @ 75 mls/hr [id number] IV Last administered on 11/17/16 01:53; Start 11/16/16 at 12:00; Stop 11/17/16 at 17:02; Status DC Furosemide (Lasix) 40 mg DAILY IVP ; Start 11/17/16 at 21:00; Stop 11/17/16 at 21: 00; Status DC Furosemide (Lasix) 40 mg DAILY IVP Last administered on 11/24/16 07:28; Start 11/16/16 at 21:00 Enoxaparin Sodium (Lovenox 100mg Syringe) 90 mg Q12HR SQ Last administered on 22:25; Start 11/16/16 at 21:00; Stop 11/17/16 at 10:23; Status DC Gadobutrol (Gadavist) 7.5 mmol 1X ONCE IV Last administered on 11/17/16 10:52 ; Start 11/17/16 at 10:30; Stop 11/17/16 at 10:32; Status DC Oxycodone/ Acetaminophen (Percocet 7.5/ 325) 1 tab PRN Q6HRS PRN PO PAIN Last administered on 11/24/16 03:10; Start 11/18/16 at 08:45 Iohexol (Omnipaque 180 Mg/ml) 10 ml 1X ONCE IJ ; Start 11/18/16 at 09:15; Stop 11/18/16 at 09:16; Status DC Iohexol (Omnipaque 180 Mg/ml) 20 ml 1X ONCE IJ ; Start 11/18/16 at 09:15; Stop 11/18/16 at 09:16; Status DC Hydromorphone HCl (Dilaudid) 0.5 mg 1X ONCE IV Last administered on 11/18/16 10:00; Start 11/18/16 at 10:00; Stop 11/18/16 at 10:01; Status DC Oxycodone HCl (Oxycontin) 15 mg Q12HR PO Last administered on 11/19/16 07:57; Start 11/18/16 at 11:00; Stop 11/19/16 at 09:45; Status DC Hydromorphone HCl (Dilaudid) 0.4 mg PRN Q4HRS PRN IVP PAIN Last administered on 11/23/16 05:55; Start 11/18/16 at 10:15 Oxycodone HCl 20 mg 20 mg Q12HR PO Last administered on 11/23/16 20:37; Start 11/19/16 at 21:00 Amino Acids/ Glycerin/ Electrolytes (Procalamine) 1,000 ml @ 80 mls/hr [id number] IV Last administered on 11/24/16 07:28; Start 11/19/16 at 15:00 Prednisone (Prednisone) 60 mg DAILY PO Last administered on 11/21/16 09:56; Start 11/20/16 at 09:00; Stop 11/22/16 at 08:56; Status DC Bisacodyl (Dulcolax Supp) 10 mg PRN DAILY PRN NM CONSTIPATION Last administered on 11/21/16 13:11; Start 11/21/16 at 10:45 Mineral Oil (Fleet Mineral Oil) 133 ml 1X ONCE NM ; Start 11/21/16 at 10:45; Stop 11/21/16 at 10:48; Status DC Magnesium Citrate (Citroma) 296 ml PRN 1X PRN PO CONSTIPATION; Start 11/21/16 at 10:45 Enoxaparin Sodium (Lovenox 40mg Syringe) 40 mg Q24H SQ Last administered on 20:37; Start 11/21/16 at 21:00 Prednisone (Prednisone) 50 mg 1X ONCE PO Last administered on 11/22/16 09:39 ; Start 11/22/16 at 09:00; Stop 11/22/16 at 09:01; Status DC Prednisone (Prednisone) 40 mg DAILY PO Last administered on 11/23/16 08:35; Start 11/23/16 at 09:00 Active Scripts Active Bactrim Ds Tablet (Sulfamethoxazole/Trimethoprim) 1 Each Tablet 1 Tab PO BID Reported Senokot (Sennosides) 8.6 Mg Tablet 8.6 Mg PO BID Albuterol Sulfate Neb Soln (Albuterol Sulfate) 2.5 Mg/3 Ml Vial.neb 1 Vial NEB Q6HRS PRN Tylenol (Acetaminophen) 325 Mg Tablet 2 Tab PO Q6HRS PRN FENTANYL 75mcg/hr (Fentanyl) 1 Each Patch.td72 1 Patch TD Q72H Citalopram Hbr (Citalopram Hydrobromide) 20 Mg Tablet 1 Tab PO DAILY Furosemide 40 Mg Tablet 1 Tab PO DAILY Calcium 600 + Vit D 400 Softgl (Calcium Carbonate/Vitamin D3) 1 Each Capsule 600 Each PO DAILY Multi Vitamin Daily (Multivitamin) 1 Each Tablet 1 Each PO Finasteride 5 Mg Tablet 5 Mg PO DAILY Hydrocodone-Apap 10-325 (Hydrocodone Bit/Acetaminophen) 1 Each Tablet 1 Tab PO PRN Q6HRS PRN Hydroxyurea 500 Mg Capsule 1,000 Mg PO HS Pantoprazole Sodium 40 Mg Tablet.dr 40 Mg PO DAILY Carvedilol 3.125 Mg Tablet 3.125 Mg PO BIDWMEALS Levothyroxine Sodium 100 Mcg Tablet 100 Mcg PO DAILYAC Vitals/I & O Vital Sign - Last 24 Hours 11/23/16 11/23/16 11/23/16 11/23/16 11:34 12:51 13:34 15:13 Temp 97.7 97.5 97.7 97.5 Pulse 63 79 Resp 18 18 B/P 91/50 110/57 Pulse Ox 95 95 O2 Delivery Room Air O2 Flow Rate 2.0 11/23/16 11/23/16 11/23/16 11/23/16 17:08 17:36 19:00 19:36 Temp 98.6 98.6 Pulse 74 78 Resp 20 B/P 116/64 98/52 Pulse Ox 95 96 O2 Delivery Room Air Room Air 11/23/16 11/23/16 11/23/16 11/24/16 20:00 20:37 23:00 00:37 Temp 98.8 98.8 Pulse 84 Resp 18 16 18 B/P 131/67 Pulse Ox 96 94 95 O2 Delivery Room Air Nasal Cannula Room Air Room Air O2 Flow Rate 2.0 11/24/16 11/24/16 11/24/16 11/24/16 03:00 03:10 04:10 07:15 Temp 97.9 97.4 97.9 97.4 Pulse 68 71 Resp 20 18 18 B/P 132/64 134/68 Pulse Ox 97 95 95 96 O2 Delivery Room Air Room Air Room Air Room Air 11/24/16 08:00 O2 Delivery Nasal Cannula O2 Flow Rate 3.0 Intake and Output 11/23/16 11/23/16 11/24/16 15:00 23:00 07:00 Intake Total 790 ml 300 ml Output Total 2000 ml 1100 ml Balance -1210 ml -800 ml LYN ABBOTT MD Nov 24, 2016 09:29
[2016-11-24] MEDS ORDERED: LIDOCAINE 1% / SOD BICARB 8.4% 20 ML VIAL. IJ ONE (10:23)
[2016-11-24 11:15] VITALS: BP 128/57
--- NOTE | 2016-11-24 13:08 | RAD ---
PROCEDURE MRI pelvis without contrast dated 11/24/2016. HISTORY Recent falls. Sacral pain. Evaluate for sacral insufficiency fracture. TECHNIQUE Routine multiplanar multisequence MR imaging of sacrum performed. No contrast administered. COMPARISON 11/13/2016. FINDINGS Severe disc space narrowing and its of endplate edema at L2-L3, L3-L4 and L5-S1. Mild levo convex lumbar curvature with slight left lateral offset of L3 relative to L4. Mild anterolisthesis of L4 on L5. Bb disc ectatic changes in facet arthropathy resulting in and suspected severe bilateral foraminal stenosis mild to moderate bilateral foraminal stenosis of the lower lumbar with levels, incompletely evaluated. There is some patchy edema at the superior endplate of S1, likely degenerative. No discrete fracture line of the sacrum. Mild degenerative change of the bilateral SI joint. No ankylosis. Nonspecific edema in the bilateral gluteus minimus and gluteus medius musculature and paraspinous muscular, unchanged from prior exam. There is also edema along the illiopsoas margins, nonspecific. Jones catheter within a collapsed urinary bladder. There is diffuse bladder wall thickening. Small amount of fluid in the presacral space. Coccygeal tip is intact. IMPRESSION - No evidence of sacral insufficiency fracture. - Subendplate edema at L2-L3, L3-L4 and L5-S1, likely reactive changes from degenerative disc disease. - Multilevel spondylosis with varying degrees of mild to moderate foraminal narrowing at the lower lumbar levels. Please see above report for details. - Patchy edema throughout the subcutaneous tissues and muscles of the pelvis is unchanged from prior exam, nonspecific. - Thick-walled urinary bladder, nonspecific. Consider acute or chronic cystitis. Electronically signed by: Eugenio Kline (Nov 24, 2016 13:07:29)
[2016-11-24] MEDS: HYDROMORPHONE 2 MG/ML VIAL. IVP PRN (13:10)
--- NOTE | 2016-11-24 14:21 | PDOC ---
SUBJECTIVE Subjective No sacroplasty as MR pelvis did not confirm sacral fxr. Some hip pain, overall improved. Denies other acute changes. OBJECTIVE Vital Signs Vital Signs Date Time Temp Pulse Resp B/P Pulse Ox O2 Delivery O2 Flow Rate FiO2 11/24/16 13:50 18 95 Nasal Cannula 3.0 11/24/16 13:23 18 95 Nasal Cannula 3.0 11/24/16 13:10 18 95 Room Air 3.0 11/24/16 11:28 95 Room Air 11/24/16 11:15 97.9 75 18 128/57 95 Room Air 97.9 11/24/16 08:00 Nasal Cannula 3.0 11/24/16 07:15 97.4 71 18 134/68 96 Room Air 97.4 11/24/16 04:10 18 95 Room Air 11/24/16 03:10 95 Room Air 11/24/16 03:00 97.9 68 20 132/64 97 Room Air 97.9 11/24/16 00:37 18 95 Room Air 11/23/16 23:00 98.8 84 16 131/67 94 Room Air 98.8 11/23/16 20:37 18 96 Nasal Cannula 2.0 11/23/16 20:00 Room Air 11/23/16 19:36 96 Room Air 11/23/16 19:00 98.6 78 20 98/52 95 98.6 11/23/16 17:36 74 116/64 11/23/16 17:08 Room Air 11/23/16 15:13 97.5 79 18 110/57 95 97.5 I & O Intake and Output 11/24/16 07:00 Intake Total 1090 ml Output Total 3100 ml Balance -2010 ml Intake Oral 1090 ml Output Urine Total 3100 ml PHYSICAL EXAM Physical Exam AA, NAD, GORDON stable, sensation intact LT ASSESSMENT/PLAN Assessment/Plan 86M with abnormal lumbar imaging, bilateral hip pain that is overall improved -again discussed previously recommended lumbar workup - pt declines further testing/procedures -no new recommendations at present based on these things Problems: ARIANNA WILKERSON MD Nov 24, 2016 14:21
[2016-11-24 14:35] VITALS: BP 108/47
--- NOTE | 2016-11-24 17:35 | PDOC3 ---
Discharge Summary Visit Information Date of Admission: Nov 14, 2016 Date of Discharge: Nov 24, 2016 Final Diagnosis Problems Medical Problems: (1) Lumbar back pain Status: Acute Brief Hospital Course Allergies Allergies Coded Allergies Type Severity Reaction Last Updated Verified I S O L A T I O N *CONTACT* Allergy Unknown 11/11/16 Yes No Known Medication Allergies Allergy Unknown 11/11/16 Yes Vital Signs Vital Signs Date Time Temp Pulse Resp B/P Pulse Ox O2 Delivery O2 Flow Rate FiO2 11/24/16 14:35 97.9 74 18 108/47 97 Room Air 97.9 11/24/16 14:23 3.0 Lab Results Laboratory Tests Test 11/23/16 07:50 White Blood Count 3.2x10^3/uL (4.0-11.0) Red Blood Count 2.28x10^6/uL (4.30-5.70) Hemoglobin 8.5g/dL (13.0-17.5) Hematocrit 27.2% (39.0-53.0) Mean Corpuscular Volume 119fL (79-100) Mean Corpuscular Hemoglobin 37pg (25-35) Mean Corpuscular Hemoglobin Concent 31g/dL (31-37) Red Cell Distribution Width 29.0% (11.5-14.5) Platelet Count 552x10^3/uL (140-400) Prothrombin Time 14.5SEC (11.7-14.0) Prothromb Time International Ratio 1.2 (0.8-1.1) Sodium Level 136mmol/L (136-145) Potassium Level 4.2mmol/L (3.5-5.1) Chloride Level 100mmol/L (98-107) Carbon Dioxide Level 34mmol/L (21-32) Anion Gap 2 (6-14) Blood Urea Nitrogen 26mg/dL (8-26) Creatinine 0.7mg/dL (0.7-1.3) Estimated GFR (Cockcroft-Gault) 106.4 Glucose Level 84mg/dL (70-99) Calcium Level 7.9mg/dL (8.5-10.1) Brief Hospital Course Mr. Downey is a 86 old who presented with lumbar back pain and inability to stand and had previously been diagnosed with MRSA UTI and had and abnormal lumbar imaging study and abnormal left hip with elevated sed rate and CRP with concern for infection present and possible cauda equina syndrome as he had lost the ability to walk and control his urine flow. He was seen in consultation by neurosurgery, Dr. Sapp and LP was ordered but pt was in too much pain to complet study. He was seen in consultation with ID but no evidence of systemic infection or UTI was found and his oral Bactrim he was admitted on was stopped. He developed an acute encephalopathy that was determined to be from too much pain medication and his fentanyl patch was removed and it resolved. He was also anemic at the time and has an underlying thrombocytosis and required transfusion of pRBC and has maintained his hemoglobin since and has avoided further mental confusion. When he didn't improve with conservative tx, Dr. North was consulted and ordered a bone scan s which showed uptake in the sacrum and left ribs consistent with healing fractures. He never had any rib pain though. A sacroplast was ordered but prior to it being done am MRI of the area showed no fracture. He developed urinary retention and constipation from pain meds. He now has a dove as he had 1400 cc of urine in his bladderm but after a couple of weeks of dove drainage and meds he should have a voiding trial. He developed a stage 3 small heel pressure ulcer on his right heal and was followed by wound care and supplemented his nutrition with procalamine IV along with protein supplement drinks. 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 He is on a prednisone taper with the hope that his inflammatory lumbar and hip pain will also improve but will need a f/u sed rate and or CRP Discharge Information Condition at Discharge: Stable Follow Up: Weeks (1-2, after SNU discharge) Disposition/Orders: D/C to Another Facility Scheduled Calcium Carbonate/Vitamin D3 (Calcium 600 + Vit D 400 Softgl) 600 EACH PO DAILY (Reported) Carvedilol (Carvedilol) 3.125 MG PO BIDWMEALS (Reported) Citalopram Hydrobromide (Citalopram Hbr) 1 TAB PO DAILY (Reported) Fentanyl (FENTANYL 75mcg/hr) 1 PATCH TD Q72H (Reported) Finasteride (Finasteride) 5 MG PO DAILY (Reported) Furosemide (Furosemide) 1 TAB PO DAILY (Reported) Hydroxyurea (Hydroxyurea) 1,000 MG PO HS (Reported) Levothyroxine Sodium (Levothyroxine Sodium) 100 MCG PO DAILYAC (Reported) Pantoprazole Sodium (Pantoprazole Sodium) 40 MG PO DAILY (Reported) Sennosides (Senokot) 8.6 MG PO BID (Reported) Sulfamethoxazole/Trimethoprim (Bactrim Ds Tablet) 1 TAB PO BID Scheduled PRN Acetaminophen (Tylenol) 2 TAB PO Q6HRS PRN PRN FEVER (Reported) Albuterol Sulfate (Albuterol Sulfate Neb Soln) 1 VIAL NEB Q6HRS PRN PRN SHORTNESS OF BREATH (Reported) Hydrocodone Bit/Acetaminophen (Hydrocodone-Apap 10-325 ) 1 TAB PO PRN Q6HRS PRN PRN PAIN (Reported) Miscellaneous Medications Multivitamin (Multi Vitamin Daily) 1 EACH PO (Reported) Patient Instructions Patient Instructions prednisone taper, currently on 40 mg, taper by 10 mg q4days, oxycontin 20 mg q 12 for pain with 10/325 qid prn breakthrough pain, he is no longer on hydrocodone, or bactrim or fentanyl patches Savana MORENO MD Nov 24, 2016 17:35
== END 2016-11-24 15:55 | DRG 551 ==
LOC: ER 20:16 → 6 SOUTH 22:15
PROVIDERS: ADMIT Family Medicine; ATTEND Family Medicine
PROC: 30233N1 Transfusion of Nonautologous Red Blood Cells into Peripheral Vein, Percutaneous Approach (ICD-10-PCS; principal; 2016-11-16)
DX: M48.06 Spinal stenosis, lumbar region (principal); G93.40 Encephalopathy, unspecified; L89.603 Pressure ulcer of unspecified heel, stage 3; E43 Unspecified severe protein-calorie malnutrition; J98.11 Atelectasis; K59.2 Neurogenic bowel, not elsewhere classified; D47.3 Essential (hemorrhagic) thrombocythemia; D64.9 Anemia, unspecified; E03.9 Hypothyroidism, unspecified; G56.03 Carpal tunnel syndrome, bilateral upper limbs; I25.10 Atherosclerotic heart disease of native coronary artery without angina pectoris; I35.0 Nonrheumatic aortic (valve) stenosis; I50.9 Heart failure, unspecified; I11.0 Hypertensive heart disease with heart failure; J44.9 Chronic obstructive pulmonary disease, unspecified; K21.9 Gastro-esophageal reflux disease without esophagitis; K59.03 Drug induced constipation; K59.09 Other constipation; L89.619 Pressure ulcer of right heel, unspecified stage; M06.4 Inflammatory polyarthropathy; M19.90 Unspecified osteoarthritis, unspecified site; M47.812 Spondylosis without myelopathy or radiculopathy, cervical region; M48.02 Spinal stenosis, cervical region; N31.9 Neuromuscular dysfunction of bladder, unspecified; N40.1 Benign prostatic hyperplasia with lower urinary tract symptoms; R32 Unspecified urinary incontinence; T38.0X5A Adverse effect of glucocorticoids and synthetic analogues, initial encounter; T40.605A Adverse effect of unspecified narcotics, initial encounter; Z96.649 Presence of unspecified artificial hip joint; Z96.653 Presence of artificial knee joint, bilateral; K59.00 Constipation, unspecified; I25.2 Old myocardial infarction; Z98.890 Other specified postprocedural states; Z87.11 Personal history of peptic ulcer disease; Z95.1 Presence of aortocoronary bypass graft; Z79.899 Other long term (current) drug therapy; Z51.5 Encounter for palliative care; Z66 Do not resuscitate
CPT/HCPCS: 36415; 70551; 71010; 72156; 72157; 72158; 72195; 73721; 78306; 80048; 80053; 81001; 82607; 82805; 85007; 85027; 85379; 85610; 85651; 85730; 86140; 86850; 86900; 86901; 86920; 87040; 87086; 87641; 93970; 94250; 94640; 94760; 96374; 96375; A9503; A9585; J1170; J1650; J1940; J2405; J3010; J7512; P9016; 97110; 99285-25